=== PATIENT | male | born 1955 | race Caucasian/White ===

== ENCOUNTER 2023-12-29 15:40 | Inpatient (IN) | payer MEDICARE, OTHER, SELFPAY ==
[2023-12-29] VITALS (7 sets, daily range): BP systolic 134–155; BP diastolic 69–100; BMI 28.1; BMI 27.6
[2023-12-29] MEDS: DECADRON 10 MG IV (12:35)
[2023-12-29] MEDS: VENTOLIN NEBULES 10 MG INH (12:35)
[2023-12-29 12:41] LABS: % Basophils 0.5 % (0-2); % Eosinophils 3.5 % (0-6); % Immature Granulocytes 0.2 % (0-0.5); % Lymphocytes 17.8 % (20.5-51.1); % Monocytes 9.6 % (1.7-9.3); % Neutrophils 68.4 % (42.2-75.2); Absolute Basophils 0.1 10^3/uL (0-0.2); Absolute Eosinophils 0.3 10^3/uL (0-0.7); Absolute Lymphocytes 1.6 10^3/uL (1.2-3.4); Absolute Monocytes 0.9 10^3/uL (0.1-0.6); Absolute Neutrophils 6.3 10^3/uL (1.4-6.5); Hematocrit 39.7 % (39.0-52.0); Mean Corp Hgb Conc. 35.3 g/dL (33.0-37.0); Mean Corpuscular Hgb 31.4 pg (27.0-31.0); Mean Platelet Volume 9.3 fL (7.4-10.4); Nucleated Red Blood Cells % 0 % (-); Platelet Count 231 10^3/uL (130-400); Red Blood Cell Count 4.46 10^6/uL (4.70-6.10); Red Cell Dist. Width 13.3 % (11.5-14.5); White Blood Cell Count 9.2 10^3/uL (4.8-10.8)
[2023-12-29 12:55] LABS: ALT (SGPT) 30 U/L (0-50); AST (SGOT) 36 U/L (17-59); Albumin 4.2 g/dl (3.5-5.0); Alkaline Phosphatase 100 U/L (38-126); Blood Urea Nitrogen 25 mg/dl (9-20); Carbon Dioxide 24 mmol/L (22-30); Chloride 106 mmol/L (98-107); Estimated Creatinine Clearance 108 ml/min; Glucose 252 mg/dl (70-99); Lactic Acid 1.5 mmol/L (0.7-2.0); Potassium 4.1 mmol/L (3.5-5.1); Sodium 135 mmol/L (135-145); Total Bilirubin 0.4 mg/dl (0.2-1.3); Total Protein 6.5 g/dl (6.3-8.2); eGFR > 60.00
[2023-12-29 12:56] LABS: COVID-19 Antigen Negative (Negative)
--- NOTE | 2023-12-29 14:18 | ED.GENMED ---
History of Present Illness
<Katty Jacob PA-C - Last Filed: 12/29/23 18:01>
General
Chief Complaint: Breathing Problem
Source: patient
Exam Limitations: none
Time Seen by Provider: 12/29/23 12:15
Nursing documentation reviewed up to this point in time: agreed with
Travel History
Have you had any contact with someone who has COVID-19?: No
Do you have any symptoms of coronavirus? Fever > 100 degrees, chills, cough, shortness of breath, sore throat, loss of taste or smell, muscle aches, or headache?: No
History of Present Illness
History of Present Illness:
68-year-old male with a history of asthma since age 48, never smoker, no history of intubations or BiPAP use in the past presents for wheezing that began last night. Patient has had a mostly dry cough and some chills. His nebulizers were increased
to every 3 hours overnight and he would just get to sleep before being woken up again by feeling short of breath. This morning he also noticed a pain in behind his right shoulder. It is not pleuritic. He has no history of DVT or PE. He has had
similar episodes of wheezing related to his asthma, the most recent was in October where he required steroid taper. Patient says this feels like an episode that may require hospitalization
Past History
<Katty Jacob PA-C - Last Filed: 12/29/23 18:01>
Past History
ED Past Medical History: Asthma, COPD, GERD and Other (Sinusitis)
ED Past Surgical History: Other (Sinus surgery)
Patient has exhibited threatening behavior?: No
PSI?: No
Social History
Tobacco: 2nd hand smoke exposure (As a child)
Alcohol: None
Drug: None
Personal:
Living: with family
Employment: Employed
Family History
Family History: Other (Noncontributory)
Review of Systems
<Katty Jacob PA-C - Last Filed: 12/29/23 18:01>
Review of Systems
Allergies reviewed?: Yes
All Other Systems: Not applicable
Phy Exam
<ZENAIDA Patino Last Filed: 12/29/23 18:01>
Physical Exam
Physical Exam:
GENERAL: Alert , mild to moderate tachypnea, accessory muscle use in his neck
EYE: pupils equal and reactive
NECK: Supple
ENT: b/l TM s clear, no pharynx erythema
CARDIAC: Regular rate and rhythm, no edema
LUNGS: Diminished throughout, inspiratory and expiratory wheezing, poor air movement, tachypneic
ABDOMEN: Soft, without focal tenderness, no r/g, no cvat, normal bowel sounds
NEUROLOGICAL: Alert and oriented, no focal neuro deficits
SKIN: Warm and dry, skin intact.
MUSCULOSKELETAL: No edema, well perfused.
PSYCH: Normal and appropriate interaction.
Scores
<ZENAIDA Patino Last Filed: 12/29/23 18:01>
Heart Failure Risk
Heart Failure Risk Score: Not Applicable
Course
<ZENAIDA Patino Last Filed: 12/29/23 18:01>
Orders/Labs/Results
Orders:
Orders
12/29/23 12:15
EKG [Electrocardiogram (*1)] Urgent
Reason for Study: Shortness of Breath
EKG- Treatment ONCE
12/29/23 12:28
Albuterol Sulfate [Ventolin Nebules] 10 mg INH R NOW STA
Dexamethasone Sod Phosphate [Decadron] 10 mg IV NOW STA
12/29/23 12:30
CR Chest - 2 Views Urgent
Comment:
Reason For Exam: fever, asthma, wheezing, cough
12/29/23 12:32
COVID-19 Antigen Urgent
Source: Nasal Swab
Complete Blood Count/With Diff Urgent
Comprehensive Metabolic Panel Urgent
Lactic Acid Urgent
Influenza A+B Rapid Molecular Urgent
STONEY Source: Nasal Swab
Specimen Description:
12/29/23 14:11
Magnesium Sulfate 1 grams 0.9% Sodium Chloride 100 ml [Nss] 100 ml IV NOW
12/29/23 14:14
Ketorolac [Toradol] 15 mg IV NOW STA
12/29/23 14:19
D-Dimer Urgent
12/29/23 14:42
Ipratropium/Albuterol Sulfate [Duoneb] 3 ml INH R NOW STA
12/29/23 14:43
Guaifenesin/Codeine Solution [Robitussin AC] 10 ml PO NOW STA
12/29/23 Dinner
1800 calorie (15 carb) Diabetic
At Your Request: Full Participation
12/29/23 15:05
Admit/Transfer Patient As Directed
Co-Sign Provider:
Level of Care: Inpatient admission
Assign to:: Medical/Surgical
Physician / Group: Hospitalist
Diagnosis: Asthma exacerbation
Reason for Hospitalization: Respiratory distress
Expected length of stay greater than two midnights?: Yes
ELOS- Estimated Length of Stay in days: 2
I certify the patient meets the requirements for IP care: Yes
12/29/23 15:07
Magnesium Sulfate 1 grams 0.9% Sodium Chloride 100 ml [Nss] 100 ml IV NOW
12/29/23 15:11
Code Status As Directed
Resuscitation Status: Full Code
12/29/23 15:29
Bedside Glucose Monitoring As Directed
Frequency: AC&HS
12/29/23 16:30
Insulin Aspart Corrective Low [Novolog Flexpen-Low Resistance] See Protocol SC AC
12/29/23 16:56
Acetaminophen [Tylenol] 650 mg PO Q4HPRN PRN
Albuterol Nebs [Ventolin Nebules] 2.5 mg INH R Q3HPRN PRN
Guaifenesin Solution [Robitussin] 200 mg PO Q4HPRN PRN
Peak Flow Rate [RESP] DAILY
Quantity: 1
12/29/23 16:56
Activity As Directed
Activity Level: With Assistance
Intake/ Output As Directed
Frequency: Per unit guidelines
Vital Signs As Directed
Frequency: Per unit guidelines
O2 Therapy [RESP] Routine
Nasal Cannula Liter Flow: 2 LPM
Titrate/Wean O2 to maintain O2 sat greater than (%): 93
Special Instructions: adjust, if necessary, to avoid hyperoxia in CO2 retainers.
Use High Flow O2 if necessary
DX Deep Vein Thrombosis Video Routine
12/29/23 17:30
METFORMIN HCl [Glucophage] 1,000 mg PO BID AT 0800,1700
12/29/23 18:00
Enoxaparin Sodium [Lovenox] 40 mg SC QPM
Ipratropium Nebs [Atrovent Nebules] 0.5 mg INH R Q1
12/29/23 20:00
Budesonide/Formoterol 160/4.5 [Symbicort 160/4.5 Mcg Inhaler] 2 puff INH R BID
Famotidine [Pepcid] 20 mg PO BID
Guaifenesin [Mucinex] 600 mg PO Q12
MethylPREDNISolone PF [Solu-Medrol Pf] 40 mg IV Q12
12/30/23 06:00
Basic Metabolic Panel IN AM
12/30/23 07:00
Levothyroxine [Synthroid] 50 mcg PO DAILY@0700
12/30/23 08:00
Montelukast Sodium [Singulair] 10 mg PO DAILY
Multivitamin [Theragran] 1 tablet PO DAILY
Paroxetine [Paxil] 10 mg PO DAILY
Tiotropium Poplar 2.5 Mcg [Spiriva Respimat 2.5 Mcg] 2 puff INH R DAILY
Abnormal Lab Results
12/29/23
12:32
RBC 4.46 L 10^6/uL
(4.70-6.10)
MCH 31.4 H pg
(27.0-31.0)
Absolute Monos (auto) 0.9 H 10^3/uL
(0.1-0.6)
Lymphocytes % 17.8 L %
(20.5-51.1)
Monocytes % 9.6 H %
(1.7-9.3)
BUN 25 H mg/dl
(9-20)
Glucose 252 H mg/dl
(70-99)
12/29/23 12:32
12/29/23 12:32
Vital Signs
Initial and Last Documented VS:
Initial Vital Signs
Temp Pulse Resp BP Pulse Ox
98.6 F 92 22 146/100 96
12/29/23 12:13 12/29/23 12:13 12/29/23 12:13 12/29/23 12:13 12/29/23 12:13
Last Documented Vital Signs
Temp Pulse Resp BP Pulse Ox
97.5 F 83 20 153/94 94
12/29/23 17:10 12/29/23 17:10 12/29/23 17:10 12/29/23 17:10 12/29/23 17:10
<Alvaro Abraham MD - Last Filed: 12/29/23 14:42>
Orders/Labs/Results
Orders:
Orders
12/29/23 12:15
EKG [Electrocardiogram (*1)] Urgent
Reason for Study: Shortness of Breath
EKG- Treatment ONCE
12/29/23 12:28
Albuterol Sulfate [Ventolin Nebules] 10 mg INH R NOW STA
Dexamethasone Sod Phosphate [Decadron] 10 mg IV NOW STA
12/29/23 12:30
CR Chest - 2 Views Urgent
Comment:
Reason For Exam: fever, asthma, wheezing, cough
12/29/23 12:32
COVID-19 Antigen Urgent
Source: Nasal Swab
Complete Blood Count/With Diff Urgent
Comprehensive Metabolic Panel Urgent
Lactic Acid Urgent
Influenza A+B Rapid Molecular Urgent
STONEY Source: Nasal Swab
Specimen Description:
12/29/23 14:11
Magnesium Sulfate 1 grams 0.9% Sodium Chloride 100 ml [Nss] 100 ml IV NOW
12/29/23 14:14
Ketorolac [Toradol] 15 mg IV NOW STA
12/29/23 14:19
D-Dimer Urgent
12/29/23 14:42
Ipratropium/Albuterol Sulfate [Duoneb] 3 ml INH R NOW STA
12/29/23 14:43
Guaifenesin/Codeine Solution [Robitussin AC] 10 ml PO NOW STA
12/29/23 Dinner
1800 calorie (15 carb) Diabetic
At Your Request: Full Participation
12/29/23 15:05
Admit/Transfer Patient As Directed
Co-Sign Provider:
Level of Care: Inpatient admission
Assign to:: Medical/Surgical
Physician / Group: Hospitalist
Diagnosis: Asthma exacerbation
Reason for Hospitalization: Respiratory distress
Expected length of stay greater than two midnights?: Yes
ELOS- Estimated Length of Stay in days: 2
I certify the patient meets the requirements for IP care: Yes
12/29/23 15:07
Magnesium Sulfate 1 grams 0.9% Sodium Chloride 100 ml [Nss] 100 ml IV NOW
12/29/23 15:11
Code Status As Directed
Resuscitation Status: Full Code
12/29/23 15:29
Bedside Glucose Monitoring As Directed
Frequency: AC&HS
12/29/23 16:30
Insulin Aspart Corrective Low [Novolog Flexpen-Low Resistance] See Protocol SC AC
12/29/23 16:56
Acetaminophen [Tylenol] 650 mg PO Q4HPRN PRN
Albuterol Nebs [Ventolin Nebules] 2.5 mg INH R Q3HPRN PRN
Guaifenesin Solution [Robitussin] 200 mg PO Q4HPRN PRN
Peak Flow Rate [RESP] DAILY
Quantity: 1
12/29/23 16:56
Activity As Directed
Activity Level: With Assistance
Intake/ Output As Directed
Frequency: Per unit guidelines
Vital Signs As Directed
Frequency: Per unit guidelines
O2 Therapy [RESP] Routine
Nasal Cannula Liter Flow: 2 LPM
Titrate/Wean O2 to maintain O2 sat greater than (%): 93
Special Instructions: adjust, if necessary, to avoid hyperoxia in CO2 retainers.
Use High Flow O2 if necessary
DX Deep Vein Thrombosis Video Routine
12/29/23 17:30
METFORMIN HCl [Glucophage] 1,000 mg PO BID AT 0800,1700
12/29/23 18:00
Enoxaparin Sodium [Lovenox] 40 mg SC QPM
Ipratropium Nebs [Atrovent Nebules] 0.5 mg INH R Q1
12/29/23 20:00
Budesonide/Formoterol 160/4.5 [Symbicort 160/4.5 Mcg Inhaler] 2 puff INH R BID
Famotidine [Pepcid] 20 mg PO BID
Guaifenesin [Mucinex] 600 mg PO Q12
MethylPREDNISolone PF [Solu-Medrol Pf] 40 mg IV Q12
12/30/23 06:00
Basic Metabolic Panel IN AM
12/30/23 07:00
Levothyroxine [Synthroid] 50 mcg PO DAILY@0700
12/30/23 08:00
Montelukast Sodium [Singulair] 10 mg PO DAILY
Multivitamin [Theragran] 1 tablet PO DAILY
Paroxetine [Paxil] 10 mg PO DAILY
Tiotropium Poplar 2.5 Mcg [Spiriva Respimat 2.5 Mcg] 2 puff INH R DAILY
Abnormal Lab Results
12/29/23
12:32
RBC 4.46 L 10^6/uL
(4.70-6.10)
MCH 31.4 H pg
(27.0-31.0)
Absolute Monos (auto) 0.9 H 10^3/uL
(0.1-0.6)
Lymphocytes % 17.8 L %
(20.5-51.1)
Monocytes % 9.6 H %
(1.7-9.3)
BUN 25 H mg/dl
(9-20)
Glucose 252 H mg/dl
(70-99)
12/29/23 12:32
12/29/23 12:32
Vital Signs
Initial and Last Documented VS:
Initial Vital Signs
Temp Pulse Resp BP Pulse Ox
98.6 F 92 22 146/100 96
12/29/23 12:13 12/29/23 12:13 12/29/23 12:13 12/29/23 12:13 12/29/23 12:13
Last Documented Vital Signs
Temp Pulse Resp BP Pulse Ox
97.5 F 83 20 153/94 94
12/29/23 17:10 12/29/23 17:10 12/29/23 17:10 12/29/23 17:10 12/29/23 17:10
<Katty Jacob PA-C - Last Filed: 12/29/23 18:01>
MDM/Problems Addressed
Differential Diagnosis Includes:
PE, asthma, pneumonia, pneumothorax
MDM/Problems Addressed:
68 y/o M
here with wheezing, sob, uri sxs and fever, worse overnight
no relief with q3 hr nebs;
tachypneic, wheezing, diminished
not hypoxic
ekg nonischemic
no chest pain
cxr no obvious PTX, reviewed with ED attending
after1 hour long continuous alb neb, pt is wheezing less but still wheezing and mildly tachypneic
not improved well enough to d/c home
will admit
pt c/o shoulder pain which seems MSK but ed attending saw pt and asked for d dimer.
<Katty Jacob PA-C - Last Filed: 12/29/23 18:01>
*Critical Care Note
Total Time (30-74mins, 75-104mins- exclusive of procedures): Not Applicable
ED Attending Note
<Katty Jacob PA-C - Last Filed: 12/29/23 18:01>
-
Portions of this chart may have been created with voice recognition software.� Occasional wrong word or��sound alike� substitutions may have occurred due to the inherent limitations of voice recognition software.
<Alvaro Abraham MD - Last Filed: 12/29/23 14:42>
ED Attending Note
Patient seen and examined by attending physician: Yes
ED Attending Note:
Patient with history of COPD, presents to ED secondary to recurrent shortness of breath with nonproductive cough over the past 2 days, along with right upper back pain. Back pain worse with certain movements and with coughing. Denies fever or
chills. Denies chest pain. Denies nausea or vomiting. Denies diarrhea. Denies recent change in medications or diet. Of note, patient was admitted to the hospital 1 month ago for similar symptoms, when he was treated for acute COPD exacerbation.
Patient states that his symptoms had resolved completely, until 2 days ago.
Physical Exam
General: mild respiratory distress, not acutely ill. afebrile.
Head: nc/at. eomi
Neck: supple. no meningeal signs.
Heart: s1/s2 regular rate and rhythm, no murmur. equal radial pulses.
Lungs: mild respiratory distress. diffuse expiratory wheezing noted bilaterally, with use of intercostal muscle.
Abdomen: normal bowel sounds. not tender.
Neuro: alert and oriented. no focal neurological deficits
Skin: no rash
Psychiatric: well kept. interactive and cooperative
Extremities: no edema. no calf tenderness.
Patient reports improvement in symptoms after hour-long continuous nebulizer treatment. However, remains tachypneic with persistent wheezing. Chest x-ray without any acute findings. History and exam consistent with likely recurrent COPD
exacerbation versus bronchitis. Patient will be admitted for further evaluation and treatment. Upper back pain likely musculoskeletal from harsh coughing spells. However, will check D-dimer, especially in light of recurrent episode within 1
month..
Discharge Plan
Departure
Patient Disposition: Admit
Date of Disposition: 12/29/23
Time of Disposition: 14:12
Admit to: Med/Surg
Presentation/result/management discussed w/ accepting MD/DO: Hospitalist
Condition: Fair
Covid-19: Not Applicable
Discharge Problem:
Asthma exacerbation, URI (upper respiratory infection)
Interventions
Interventions:
*Risk Screen - Suicide Last Done: 12/29/23 17:15
*General Assessment Last Done: 12/29/23 12:24
*Neglect/Abuse Screening Last Done: 12/29/23 12:24
ED- Fall Risk Assessment Last Done: 12/29/23 12:24
*ED COVID-19 Vaccine History Last Done: 12/29/23 12:24
*Nursing Disposition Last Done: 12/29/23 16:48
ED- Cardiac Assessment Last Done: 12/29/23 12:24
ED- Pulmonary Assessment Last Done: 12/29/23 12:24
Discharge Date and Time
Discharge Date/Time: 12/29/23 16:48
[2023-12-29] MEDS: TORADOL 15 MG IV (14:20)
[2023-12-29 14:42] LABS: D-Dimer 0.31 ug/mlFEU (0.00-0.50)
[2023-12-29] MEDS: MAGNESIUM SULFATE 102 GRAMS IV (15:26)
[2023-12-29] MEDS: DUONEB 3 ML INH (15:28)
[2023-12-29] MEDS: ROBITUSSIN AC 10 ML PO (15:28)
--- NOTE | 2023-12-29 15:30 | HPS.HSE ---
Family Physician
-
Family Physician: Arlyn Sheriff PA-C
Chief Complaint
-
Wheezing and shortness of breath
History of Present Illness
This is a 68-year-old male with a past medical history of insulin-dependent diabetes, asthma, GERD presenting to the emergency department with acute episode of wheezing and nonproductive cough and shortness of breath.
Patient reported that since 1 week ago he has had increased nasal congestion and stuffiness with associated postnasal drip. He denied having any fever chills. He denies a productive cough. He denies any sick contacts. Yesterday he started
having more dyspnea and shortness of breath. He used his rescue inhaler 3 times yesterday without any significant improvement. He was even unable to sleep due to the persistent wheezing and inability to catch his breath. He reports some chest
pain with deep dry cough. Patient reported compliance with his maintenance medications. He denies any new exposures, new medications, recent travels or sick contacts. He denies any lower extremity swelling or calf tenderness.
On arrival in the ED the patient was afebrile and hemodynamically stable was tachypneic maintain oxygen saturation of 93 to 97% on room air. X-ray shows no acute infiltrates bilateral hyperinflation previously seen. ECG with normal sinus rhythm
rate of 70 and a left anterior fascicular block unchanged from prior, no acute Q waves or T wave abnormalities. His COVID test was negative. Influenza test was negative. D-dimer was negative. Chemistries were all within limits except for
hyperglycemia to 52. CBC was unremarkable.
Medical History
Past Medical History
Past Medical History: Reports Asthma, GERD and IDDM
Past Surgical History: Reports None
Social History
Tobacco: Non-smoker
Alcohol: None
Drug: None
Personal:
Living: With Family
Employment: Employed
Family History
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
Allergies / Home Medications
Allergies reflects when Allergies were last updated in [facility].
Home Medications with original date entered in [facility]
Allergy/Medication List:
Allergies
Allergy/AdvReac Type Severity Reaction Status Date / Time
grass pollen-perennial rye, Allergy Shortness Verified 12/29/23 12:13
standar of Breath
tree and shrub pollen Allergy PINE Verified 12/29/23 12:13
TREES-SHORTNESS
OF BREATH
Home Medications
paroxetine HCl 10 mg tablet 10 mg PO DAILY Mental Health 01/27/13
multivitamin with folic acid 400 mcg tablet (Tab-A-Grayson) 1 tab PO DAILY Supplement 11/10/18
montelukast 10 mg tablet 10 mg PO DAILY Lung/breathing issues 09/07/19
famotidine 20 mg tablet 20 mg PO BID Gastrointestinal issue 01/06/21
acetaminophen 500 mg tablet (Tylenol Extra Strength) 500 mg PO BIDPRN PRN mild pain 11/08/23
albuterol sulfate 90 mcg/actuation aerosol inhaler 2 puff inhalation R Q4HPRN PRN sob 11/08/23
budesonide 0.5 mg/2 mL suspension for nebulization 0.5 mg inhalation R BIDPRN PRN sob 11/08/23
budesonide-formoterol HFA 160 mcg-4.5 mcg/actuation aerosol inhaler (Symbicort) 2 puff inhalation R BID 11/08/23
fluticasone propionate 50 mcg/actuation nasal spray,suspension 2 spray intranasal DAILY 11/08/23
insulin glargine 100 unit/mL (3 mL) subcutaneous pen (Lantus Solostar U-100 Insulin) 8 unit SC BID 11/08/23
levothyroxine 50 mcg tablet 50 mcg PO DAILY 11/08/23
metformin 1,000 mg tablet 1,000 mg PO BID 11/08/23
omega 6-kca-rqi-fish oil 1,000 mg (120 mg-180 mg) capsule (Fish Oil) 2 cap PO DAILY 11/08/23
umeclidinium 62.5 mcg/actuation blister powder for inhalation (Incruse Ellipta) 1 inh inhalation R DAILY 11/08/23
Review of Systems
-
History Source: Patient
Constitutional: Reports No Symptoms
EENT: Reports Runny Nose
Respiratory: Reports Cough and Trouble Breathing
Cardiac: Reports No Symptoms
Abdomen/GI: Reports No Symptoms
: Reports No Symptoms
Musculoskeletal: Reports No Symptoms
Skin: Reports No Symptoms
Neurological: Reports No Symptoms
Endocrine: Reports No Symptoms
Hematologic/Lymphatic: Reports No Symptoms
Psych: Reports No Symptoms
Physical Exam
Vital Signs
Vital Signs
Temp Pulse Resp BP Pulse Ox
98.6 F 72 18 155/73 95
12/29/23 12:13 12/29/23 15:00 12/29/23 15:00 12/29/23 14:00 12/29/23 15:00
Physical Exam
General: Well Developed, Well Nourished and Respiratory Distress
HEENT: NormoCephalic, Anicteric, Moist mucous membranes, Atraumatic, PERRLA, [employer] [place] Conjunctivae and Neck Nontender
Respiratory: Clear, Wheezes and Decreased Breath Sounds
Cardiac: S1/S2 and Regular Rhythm
Breast: Deferred by me
GI: Soft, Non Tender and Non Distended
Rectal: Deferred by Provider
Genito-urinary: Deferred by me
Musculoskeletal: No Clubbing, No Cyanosis and No Edema
Skin: Warm
Neuro: AO x 3
Hematologic/Lymphatic: No Lymphadenopathy
Psych: Calm
Laboratory Results
-
12/29/23 12:32
12/29/23 12:32
Laboratory Results
Lactic Acid 1.5 mmol/L (0.7-2.0) 12/29/23 12:32
Total Bilirubin 0.4 mg/dl (0.2-1.3) 12/29/23 12:32
AST 36 U/L (17-59) 12/29/23 12:32
ALT 30 U/L (0-50) 12/29/23 12:32
Alkaline Phosphatase 100 U/L (38-126) 12/29/23 12:32
Data Reviewed
-
Diagnostic Radiology: Image Personally Visualized and interpreted and Report Reviewed by me
Medical Tests (Nuc Med, Echo, EKG etc): Image Personally Visualized and interpreted
Lab Data: Labs Reviewed by me
Old Records: Reviewed
Impression/Plan
-
IMPRESSION:
68-year-old with history of asthma presents to the emergency department with nonproductive cough wheezing shortness of breath without hypoxia and cough associated chest pain. Moderate respiratory distress. X-ray without infiltrates. Negative
COVID, negative influenza, negative D-dimer. Labs unremarkable. ECG with normal sinus rhythm without any acute ST or T wave changes. Patient with obvious asthma exacerbation without evidence of significant infection or bronchitis. Likely allergy
related exacerbation giving history of nasal congestion and postnasal drip. Currently air movement is acceptable with moderate wheezing throughout the lung meneses. No use of accessory muscles. Speaking in clear and full sentences. Status post
dexamethasone, albuterol, mag sulfate in ED.
PLAN:
Asthma Exacerbation - Moderate asthma exacerbation without signs of infection, PE or volume overload. WOB is moderate. No hypoxia. Speaking in full sentences. No indication for BIPAP or intubation.
- admit to med/surg
- in addition to ED treatments, will add ipratoprium neb 500mcg q1 hr x 3
- albuterol q 3hrs prn wheezing
- solumedrol 40mg iv q 12
- continue montelukast and famotidine
- continue symbicort and incruse ellipta
- guaifenesin bid and q 6 prn
- supplemental oxygen if needed
- pain control with tylenol prn
DM II - Insulin dependent diabetes on lantus at home
- lantus 8 bid
- sliding scale aspart (low dose)
- metformin 1000 bid for now
GERD-
- famotidine bid as above
Hypothyroid
- continue levothyroxine 50 mcg
DVT PPX - lovenox sq
Code status - full code
--- NOTE | 2023-12-29 17:10 | PTCARENOTE ---
Pt arrived to rm 407-2 at this time from the ED. Pt AAOx3, HAMILTON, coarse throughout on lung assessment, no complaints of pain. Med/surg. See shift assessment for further detail. Oriented pt to plan of care, reporting concerns, call foley, etc- pt
verbalized understanding. Call foley within reach.
[2023-12-29 17:47] LABS: Glucose - Point of Care 209 mg/dl (70-99)
[2023-12-29] MEDS: ATROVENT NEBULES INH ×2 (18:16→19:38)
[2023-12-29] MEDS: GLUCOPHAGE 1000 MG PO (18:34)
[2023-12-29] MEDS: NOVOLOG FLEXPEN-LOW RESISTANCE 2 UNITS SC (18:34)
[2023-12-29] MEDS: SYMBICORT 160/4.5 MCG INHALER 2 PUFF INH (19:32)
[2023-12-29] MEDS: ATROVENT NEBULES 0.5 MG INH (19:34)
[2023-12-29] MEDS: PEPCID 20 MG PO (20:48)
[2023-12-29] MEDS: MUCINEX 600 MG PO (20:48)
[2023-12-29] MEDS: SOLU-MEDROL PF 40 MG IV (20:50)
[2023-12-29 20:58] LABS: Glucose - Point of Care 227 mg/dl (70-99)
[2023-12-29] MEDS: LANTUS 0.0800000000000000017 UNITS SC (21:01)
[2023-12-30] MEDS: SYNTHROID 50 MCG PO (05:38)
[2023-12-30 07:01] LABS: Glucose - Point of Care 128 mg/dl (70-99)
[2023-12-30 07:25] VITALS: BP 142/82
[2023-12-30] MEDS: SPIRIVA RESPIMAT 2.5 MCG 2 PUFF INH (08:04)
[2023-12-30] MEDS: SYMBICORT 160/4.5 MCG INHALER 2 PUFF INH ×2 (08:04→19:16)
[2023-12-30] MEDS: VENTOLIN NEBULES 2.5 MG INH ×2 (08:19→17:07)
--- NOTE | 2023-12-30 08:37 | W.PN.HOSP.TC ---
Today's Communication/Plan
-
Change steroids to prednisone
Continue inhalers
Acapella
Assessment / Plan
Assessment / Plan
Gen-AAOx3, NAD
HEENT-NC, AT, anicteric, clear oral mm
Neck-supple
CV-reg, no M, +S1/S2
Lungs-mild bilateral expiratory wheezing
Abd-soft, NT, ND
Ext-no edema
Musculoskeletal-no cyanosis, clubbing
Skin-warm and dry
Neuro-grossly non-focal
Psych-calm, cooperative
Acute asthma exacerbation -slowly improving. Chest x-ray clear. Not hypoxic, not on supplemental oxygen. COVID and influenza negative. Baseline mild persistent asthma. Suspect trigger for asthma exacerbation due to seasonal allergies given the
change in weather. Spoke with patient about starting nasal steroids in November to get ahead of allergy season. Will add Claritin while in the hospital. We do not have nasal steroids on formulary.
Will lower dose of steroids and change to prednisone. Continue inhalers. He is on Symbicort and Incruse Ellipta at home daily.
Close outpatient follow-up with his asthma specialist, Dr. Perkins.
DM2 with hyperglycemia -hyperglycemia triggered by steroid use. Glucose 227 last night, 128 this morning. He is on Lantus 8 units twice daily along with metformin 1000 mg twice daily at home.
GERD
Hypothyroidism -continue levothyroxine.
Full code
Dispo -potential discharge tomorrow if he continues to improve.
Anticipated Discharge: Within 24 hours
Subjective/Interval History
-
Date of Service: December 30, 2023
Patient seen and examined. States he is starting to feel better. Getting a nebulizer treatment currently. No complaints.
Objective Data
-
Labs:
Laboratory Results
12/30/23
07:06
Sodium Pending
Potassium Pending
Chloride Pending
Carbon Dioxide Pending
BUN Pending
Creatinine Pending
Glucose Pending
Calcium Pending
Vital Signs:
Vital Signs
Temp Pulse Resp BP Pulse Ox
97.4 F 65 18 142/82 95
12/30/23 07:25 12/30/23 08:17 12/30/23 08:17 12/30/23 07:25 12/30/23 08:17
I&O
12/29/23 12/30/23 12/31/23
06:59 06:59 06:59
Intake Total 240 / 240
Balance 240 / 240
Review of Systems
-
History Source: Patient
All other systems: Reviewed and negative
[2023-12-30 08:40] LABS: Blood Urea Nitrogen 27 mg/dl (9-20); Calcium 9.4 mg/dl (8.4-10.2); Carbon Dioxide 26 mmol/L (22-30); Chloride 102 mmol/L (98-107); Estimated Creatinine Clearance 108 ml/min; Glucose 128 mg/dl (70-99); Potassium 4.8 mmol/L (3.5-5.1); Sodium 135 mmol/L (135-145); eGFR > 60.00
[2023-12-30] MEDS: NOVOLOG FLEXPEN-LOW RESISTANCE SC ×2 (09:01→12:02)
[2023-12-30] MEDS: SOLU-MEDROL PF IV (09:03)
[2023-12-30] MEDS: MUCINEX 600 MG PO ×2 (09:04→21:22)
[2023-12-30] MEDS: LANTUS 0.0800000000000000017 UNITS SC ×2 (09:04→21:23)
[2023-12-30] MEDS: FLUSH (NSS) 1 FLUSH IV (09:05)
[2023-12-30] MEDS: GLUCOPHAGE 1000 MG PO ×2 (09:05→17:00)
[2023-12-30] MEDS: CLARITIN 10 MG PO (09:05)
[2023-12-30] MEDS: DELTASONE 50 MG PO (09:05)
[2023-12-30] MEDS: PEPCID 20 MG PO ×2 (09:05→21:22)
[2023-12-30] MEDS: THERAGRAN 1 TABLET PO (09:05)
[2023-12-30] MEDS: SINGULAIR 10 MG PO (09:05)
[2023-12-30] MEDS: PAXIL 10 MG PO (09:05)
[2023-12-30 11:38] LABS: Glucose - Point of Care 127 mg/dl (70-99)
[2023-12-30 15:16] VITALS: BP 150/85
--- NOTE | 2023-12-30 16:02 | PTCARENOTE ---
Pt AO x3, SALINAS well, OOB in room/to BR; marybel well. VSS. On room air- pulse ox 94%, no c/o SOB. Abd large, soft, marybel PO well. Voiding in BR without difficulty. Resting in bed at present, no c/o. Will continue to monitor.
[2023-12-30 16:44] LABS: Glucose - Point of Care 153 mg/dl (70-99)
[2023-12-30] MEDS: ROBITUSSIN 200 MG PO (17:00)
--- NOTE | 2023-12-30 17:26 | CM ---
CM following re: d/c planning
Chart reviewed
CM met with the patient at bedside; IA completed
Pt states he and his spouse reside in a 2SH with 2STE
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
Pt has no previous SNF/VN hx, and the only DME owned is a nebulizer
Pt does have prescription coverage and rx's are filled at [facility] on [facility]
Pt PCP-Arlyn Sheriff PA-C
No needs are anticipated once stable for d/c
CM will continue to remain available and assist with any needs at d/c as applicable
PLAN; d/c home no needs anticipated
[2023-12-30] MEDS: NOVOLOG FLEXPEN-LOW RESISTANCE 1 UNITS SC (17:58)
[2023-12-30 20:22] LABS: Hepatitis C Antibody Negative (Negative)
[2023-12-30 21:15] LABS: Glucose - Point of Care 165 mg/dl (70-99)
[2023-12-30 23:11] VITALS: BP 114/70
[2023-12-31] MEDS: SYNTHROID 50 MCG PO (06:21)
[2023-12-31 07:00] VITALS: BP 159/98
[2023-12-31] MEDS: SPIRIVA RESPIMAT 2.5 MCG 2 PUFF INH (07:40)
[2023-12-31] MEDS: SYMBICORT 160/4.5 MCG INHALER 2 PUFF INH (07:40)
[2023-12-31] MEDS: VENTOLIN NEBULES 2.5 MG INH (07:41)
[2023-12-31 08:07] LABS: Glucose - Point of Care 89 mg/dl (70-99)
[2023-12-31] MEDS: NOVOLOG FLEXPEN-LOW RESISTANCE SC (08:39)
[2023-12-31] MEDS: LANTUS 0.0800000000000000017 UNITS SC (08:39)
[2023-12-31] MEDS: THERAGRAN 1 TABLET PO (08:40)
[2023-12-31] MEDS: PAXIL 10 MG PO (08:40)
[2023-12-31] MEDS: GLUCOPHAGE 1000 MG PO (08:40)
[2023-12-31] MEDS: SINGULAIR 10 MG PO (08:40)
[2023-12-31] MEDS: PEPCID 20 MG PO (08:40)
[2023-12-31] MEDS: DELTASONE 50 MG PO (08:40)
[2023-12-31] MEDS: CLARITIN 10 MG PO (08:40)
[2023-12-31] MEDS: MUCINEX 600 MG PO (08:40)
--- NOTE | 2023-12-31 08:42 | W.PN.HOSP.TC ---
Today's Communication/Plan
-
Ambulatory pulse ox on room air
Discharge
Assessment / Plan
Assessment / Plan
Gen-AAOx3, NAD
HEENT-NC, AT, anicteric, clear oral mm
Neck-supple
CV-reg, no M, +S1/S2
Lungs-bilateral wheezing much improved compared to yesterday
Abd-soft, NT, ND
Ext-no edema
Musculoskeletal-no cyanosis, clubbing
Skin-warm and dry
Neuro-grossly non-focal
Psych-calm, cooperative
Acute asthma exacerbation -slowly improving. Chest x-ray clear. Not hypoxic, not on supplemental oxygen. COVID and influenza negative. Baseline mild persistent asthma. Suspect trigger for asthma exacerbation due to seasonal allergies given the
change in weather. Spoke with patient about starting nasal steroids in November to get ahead of allergy season. Will add Claritin while in the hospital. We do not have nasal steroids on formulary.
Will discharge on a prednisone taper. Continue inhalers. He is on Symbicort and Incruse Ellipta at home daily.
Close outpatient follow-up with his asthma specialist, Dr. Perkins. Hyde text sent to Dr. Perkins with an update.
DM2 with hyperglycemia -hyperglycemia triggered by steroid use. Glucose 165 last night, 89 this morning. He is on Lantus 8 units twice daily along with metformin 1000 mg twice daily at home.
GERD
Hypothyroidism -continue levothyroxine.
Full code
Dispo -medically stable for discharge home today. Outpatient follow-up with PCP and pulmonary. Discussed with nursing. Check ambulatory pulse ox on room air prior to discharge.
35 minutes spent in discharge process.
Anticipated Discharge: Today
Subjective/Interval History
-
Date of Service: December 31, 2023
Patient seen and examined. Feeling much better. Denies shortness of breath or wheezing.
Objective Data
-
Vital Signs:
Vital Signs
Temp Pulse Resp BP Pulse Ox
98.1 F 76 18 159/98 95
12/31/23 07:00 12/31/23 07:42 12/31/23 07:42 12/31/23 07:00 12/31/23 07:42
I&O
12/30/23 12/31/23 01/01/24
06:59 06:59 06:59
Intake Total 240 / 240 1140 / 1140
Balance 240 / 240 1140 / 1140
Review of Systems
-
History Source: Patient
All other systems: Reviewed and negative
--- NOTE | 2023-12-31 08:48 | W.DS.TRANS ---
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
-
Discharge Instructions:
Discharge Diagnosis/Procedures Asthma exacerbation
Diet Diabetic, Carb Controlled
Activity As tolerated
Driving Restrictions As prior to admission
Bathing Restrictions None
Instructions:
Stand-Alone Forms:
Changes to Home Medications: No
Discharge Medications:
DC Medications w/original date entered in [employer]
paroxetine HCl 10 mg tablet 10 mg PO DAILY Mental Health 01/27/13
multivitamin with folic acid 400 mcg tablet (Tab-A-Grayson) 1 tab PO DAILY Supplement 11/10/18
montelukast 10 mg tablet 10 mg PO DAILY Lung/breathing issues 09/07/19
famotidine 20 mg tablet 20 mg PO BID Gastrointestinal issue 01/06/21
acetaminophen 500 mg tablet (Tylenol Extra Strength) 500 mg PO BIDPRN PRN mild pain 11/08/23
albuterol sulfate 90 mcg/actuation aerosol inhaler 2 puff inhalation R Q4HPRN PRN sob 11/08/23
budesonide 0.5 mg/2 mL suspension for nebulization 0.5 mg inhalation R BIDPRN PRN sob 11/08/23
budesonide-formoterol HFA 160 mcg-4.5 mcg/actuation aerosol inhaler (Symbicort) 2 puff inhalation R BID Lung/Breathing Issues 11/08/23
fluticasone propionate 50 mcg/actuation nasal spray,suspension 2 spray intranasal DAILY Lung/Breathing Issues 11/08/23
insulin glargine 100 unit/mL (3 mL) subcutaneous pen (Lantus Solostar U-100 Insulin) 8 unit SC BID Diabetes 11/08/23
levothyroxine 50 mcg tablet 50 mcg PO DAILY Thyroid 11/08/23
metformin 1,000 mg tablet 1,000 mg PO BID Diabetes 11/08/23
omega 1-qyl-xsw-fish oil 1,000 mg (120 mg-180 mg) capsule (Fish Oil) 2 cap PO DAILY 11/08/23
umeclidinium 62.5 mcg/actuation blister powder for inhalation (Incruse Ellipta) 1 inh inhalation R DAILY Lung/Breathing Issues 11/08/23
prednisone 10 mg tablet 10 mg PO DIRECTED #30 tabs 12/31/23
Home Medication Changes
Pending Results: No
[2023-12-31 09:55] VITALS: O2SAT 93; O2SAT 96
--- NOTE | 2023-12-31 10:24 | PTCARENOTE ---
Reviewed discharge instructions with patient including tapering prednisone dose. Patient able to repeat back instructions and denies questions. Patient had ambulatory pulse ox with good results and no indication for oxygen. IV removed. Patient left
unit in wheelchair with staff escort.
--- NOTE | 2023-12-31 11:19 | CM ---
CM following re: d/c planning
Chart reviewed
Pt is medically stable for d/c
Pt has no skilled needs noted
IMM reviewed and copy provided
Pt states he drove self to the hospital
PLAN; d/c home no needs noted
== END 2023-12-31 10:11 | disposition home or self-care (01) | DRG 203 ==
LOC: 4 EAST ACU 15:40
PROVIDERS: Physician Assistant; ADMITTING PHYSICIAN Internal Medicine; ATTENDING PHYSICIAN Hospitalist; EMERGENCY PHYSICIAN Emergency Medicine; FAMILY PHYSICIAN Student in an Organized Health Care Education/Training Program
DX: J45.901 Unspecified asthma with (acute) exacerbation (principal); E11.65 Type 2 diabetes mellitus with hyperglycemia; K21.9 Gastro-esophageal reflux disease without esophagitis; E03.9 Hypothyroidism, unspecified; Z11.52 Encounter for screening for COVID-19
CPT/HCPCS: 71046; 80048; 80053; 82962; 83605; 85025; 85379; 86803; 87502; 87811; 93005; 94640; 94761; 96374; 96375; 99285

== ENCOUNTER → 2024-02-06 06:36 | Outpatient (REF) | payer MEDICARE, OTHER, SELFPAY | LOC: RAD 06:36 | PROVIDERS: ATTENDING PHYSICIAN Podiatrist; FAMILY PHYSICIAN Family Medicine | DX: I70.90 Unspecified atherosclerosis (principal); E11.8 Type 2 diabetes mellitus with unspecified complications | CPT/HCPCS: 93922; 93925 ==

== ENCOUNTER 2024-03-12 09:01 | Inpatient (IN) | payer MEDICARE, OTHER, SELFPAY ==
[2024-03-12] VITALS (7 sets, daily range): BP systolic 127–155; BP diastolic 60–95
[2024-03-12 05:57] LABS: % Eosinophils 8.1 % (0-6); % Immature Granulocytes 0.3 % (0-0.5); % Lymphocytes 30.2 % (20.5-51.1); % Monocytes 9.1 % (1.7-9.3); % Neutrophils 51.3 % (42.2-75.2); Absolute Basophils 0.1 10^3/uL (0-0.2); Absolute Eosinophils 0.7 10^3/uL (0-0.7); Absolute Lymphocytes 2.8 10^3/uL (1.2-3.4); Absolute Monocytes 0.8 10^3/uL (0.1-0.6); Absolute Neutrophils 4.7 10^3/uL (1.4-6.5); Hematocrit 43.2 % (39.0-52.0); Hemoglobin 14.9 g/dL (13.0-18.0); Mean Corp Hgb Conc. 34.5 g/dL (33.0-37.0); Mean Corpuscular Hgb 31.3 pg (27.0-31.0); Mean Corpuscular Volume 90.8 fL (80.0-94.0); Mean Platelet Volume 8.9 fL (7.4-10.4); Nucleated Red Blood Cells % 0 % (-); Platelet Count 300 10^3/uL (130-400); Red Blood Cell Count 4.76 10^6/uL (4.70-6.10); Red Cell Dist. Width 13.2 % (11.5-14.5); White Blood Cell Count 9.1 10^3/uL (4.8-10.8)
[2024-03-12] MEDS: DUONEB 3 ML INH ×4 (05:59→18:35)
[2024-03-12 06:12] LABS: ALT (SGPT) 34 U/L (0-50); AST (SGOT) 48 U/L (17-59); Albumin 4.5 g/dl (3.5-5.0); Alkaline Phosphatase 93 U/L (38-126); Blood Urea Nitrogen 23 mg/dl (9-20); Calcium 9.9 mg/dl (8.4-10.2); Carbon Dioxide 29 mmol/L (22-30); Chloride 103 mmol/L (98-107); Estimated Creatinine Clearance 93 ml/min; Glucose 89 mg/dl (70-99); Potassium 4.5 mmol/L (3.5-5.1); Sodium 141 mmol/L (135-145); Total Bilirubin 0.8 mg/dl (0.2-1.3); Total Protein 7.1 g/dl (6.3-8.2); eGFR > 60.00
--- NOTE | 2024-03-12 06:12 | ED.GENMED ---
History of Present Illness
General
Chief Complaint: Breathing Problem
Source: patient, records and previous hospital records
Exam Limitations: none
Time Seen by Provider: 03/12/24 06:01
Nursing documentation reviewed up to this point in time: agreed with
Travel History
Have you had any contact with someone who has COVID-19?: No
Do you have any symptoms of coronavirus? Fever > 100 degrees, chills, cough, shortness of breath, sore throat, loss of taste or smell, muscle aches, or headache?: No
History of Present Illness
History of Present Illness:
69-year-old male asthmatic followed by Dr. Perkins-diabetic on insulin-cough shortness of breath and wheeze for about 3 days using his neb and inhaler, worse last evening no fevers having trouble expectorating sputum, no hemoptysis no calf pain no
chest pain patient states pollen is a typical trigger for him
Past History
Past History
ED Past Medical History: Asthma, COPD, GERD and Other (Sinusitis)
ED Past Surgical History: Other (Sinus surgery)
Patient has exhibited threatening behavior?: No
PSI?: No
Social History
Tobacco: 2nd hand smoke exposure (As a child)
Alcohol: None
Drug: None
Personal:
Living: with family
Employment: Employed
Family History
Family History: Other (Noncontributory)
Review of Systems
Review of Systems
All Other Systems: Not applicable
Constitutional: Denies fever or fatigue
Respiratory: Reports cough and trouble breathing
Cardiac: Reports no symptoms
ABD/GI: Reports no symptoms
: Reports no symptoms
Musculoskeletal: Reports no symptoms
Skin: Reports no symptoms
Endocrine: Reports no symptoms
Phy Exam
Physical Exam
Physical Exam:
Physical Exam
General: 69 male mild to moderate respiratory distress
Neck: No no JVD no jaw
Heart: s1/s2 regular rate and rhythm, no murmur. equal radial pulses.
Lungs: Wheezing bilaterally
Neuro: alert and oriented. no focal neurological deficits
Skin: no rash
Psychiatric: well kept. interactive and cooperative
Extremities: no edema. no calf tenderness.
Scores
Heart Failure Risk
Heart Failure Risk Score: Not Applicable
Course
Orders/Labs/Results
Orders:
Orders
03/12/24 05:35
Ipratropium/Albuterol Sulfate [Duoneb] 3 ml .ROUTE .STK-MED ONE
03/12/24 05:38
Electrocardiogram (*1) Urgent
Reason for Study: Other
Other Reason for Exam: Respiratory Distress
Cardiac Monitoring- Treatment ONCE
EKG- Treatment ONCE
IV Insert/Care/Rem.- Treatment PRN
CR Chest - 2 Views Urgent
Comment:
Reason For Exam: respiratory distress
O2 Therapy [RESP] Urgent
Titrate/Wean O2 to maintain O2 sat greater than (%): 93
Special Instructions: TO MAINTAIN CONTINUOUS O2 SATS >/= 93%
Pulse Ox/cont/shift [RESP] Urgent
Quantity: 1
Special Instructions: continuous pulse ox
03/12/24 05:45
Complete Blood Count/With Diff Urgent
Comprehensive Metabolic Panel Urgent
NT-proBNP Urgent
Troponin I Urgent
03/12/24 05:59
Ipratropium/Albuterol Sulfate [Duoneb] 3 ml INH R NOW ONE
03/12/24 06:09
Albuterol Nebs [Ventolin Nebules] 2.5 mg INH R NOW STA
Dexamethasone Sod Phosphate [Decadron] 10 mg IV NOW STA
Peak Flow Rate [RESP] Urgent
Quantity: 1
Peak Flow Rate [RESP] Urgent
Quantity: 1
Pre-Bronchodilator: Yes
Post Bronchodilator: Yes
Special Instructions: Pre and Post Peak Flow before and after Bronchodilator
03/12/24 06:11
Albuterol Nebs [Ventolin Nebules] 2.5 mg .ROUTE .STK-MED ONE
Abnormal Lab Results
03/12/24
05:45
MCH 31.3 H pg
(27.0-31.0)
Absolute Monos (auto) 0.8 H 10^3/uL
(0.1-0.6)
Eosinophils % 8.1 H %
(0-6)
BUN 23 H mg/dl
(9-20)
03/12/24 05:45
03/12/24 05:45
Vital Signs
Initial and Last Documented VS:
Initial Vital Signs
Temp Pulse Resp BP Pulse Ox
97.5 F 86 22 144/95 93
03/12/24 05:37 03/12/24 05:37 03/12/24 05:37 03/12/24 05:37 03/12/24 05:37
Last Documented Vital Signs
Temp Pulse Resp BP Pulse Ox
97.5 F 76 19 142/86 95
03/12/24 05:37 03/12/24 07:03 03/12/24 07:03 03/12/24 07:03 03/12/24 07:03
MDM/Problems Addressed
Differential Diagnosis Includes:
Asthma bronchitis COPD pneumonia doubt PE
MDM/Problems Addressed:
Cough shortness of breath
Chronic conditions affecting care: DM, COPD and Asthma
Acute Exacerbation and/or Progression of Chronic Illness: DM, COPD and Asthma
*Radiology
Radiology exam reviewed: preliminary read by ED provider
*Pulse Oximetry
Patient hypoxic: yes
Comment: 92
*EKG
Interpreted by ED Provider?: Yes
Interpretation: abnormal
Comparison EKG: no comparison EKG present
Heart Rate: 78
Rate: normal
Rhythm: sinus
QRS Pattern: right bundle branch block
Ischemia: non-specific ST changes
*Stone Sandblaster Interpretation
Rate: normal
Interpretation: normal
Heart Rate: 78
Rhythm: sinus
*Critical Care Note
Total Time (30-74mins, 75-104mins- exclusive of procedures): Not Applicable
Patient Management
Social determinants of health affecting care: Living situation
Discussion with other providers: Hospitalist
Escalation/DeEscalation of care consider admission/obs:
Update patient still tachypneic wheezing peak flow 125-150 after nebs feels better after being placed on oxygen will require admission
Update Note
Update Note:
Update labs noted chest x-ray noted EKG noted
ED Attending Note
-
Portions of this chart may have been created with voice recognition software.� Occasional wrong word or��sound alike� substitutions may have occurred due to the inherent limitations of voice recognition software.
Discharge Plan
Departure
Patient Disposition: Admit
Date of Disposition: 03/12/24
Time of Disposition: 07:34
Admit to: Med/Surg
Presentation/result/management discussed w/ accepting MD/DO: Hospitalist
Patient with high blood pressure during this ER visit?: No
Condition: Fair
Covid-19: Not Applicable
Discharge Problem:
Asthma exacerbation
Prescriptions:
No Action
paroxetine HCl 10 MG tablet
10 mg PO DAILY
multivitamin with folic acid [Tab-A-Grayson] 1 TABLET tablet
1 tab PO DAILY
montelukast 10 MG tablet
10 mg PO DAILY
famotidine 20 MG tablet
20 mg PO BID
acetaminophen [Tylenol Extra Strength] 500 mg Tablet
500 mg PO BIDPRN PRN (Reason: mild pain)
levothyroxine 50 mcg Tablet
50 mcg PO DAILY
metformin 1,000 mg Tablet
1,000 mg PO BID
budesonide 0.5 mg/2 mL Suspension For Nebulization
0.5 mg INHALATION R BIDPRN PRN (Reason: sob)
albuterol sulfate 90 mcg/actuation Hfa Aerosol Inhaler
2 puff INHALATION R Q4HPRN PRN (Reason: sob)
fluticasone propionate 50 mcg/actuation Bassett,Suspension
2 spray INTRANASAL DAILY
budesonide-formoterol [Symbicort] 160-4.5 mcg/actuation Hfa Aerosol Inhaler
2 puff INHALATION R BID
insulin glargine [Lantus Solostar U-100 Insulin] 100 unit/mL (3 mL) Insulin Pen
8 unit SC BID
omega 8-tqa-thb-fish oil [Fish Oil] 1,000 mg (120 mg-180 mg) Capsule
2 cap PO DAILY
Incruse Ellipta 62.5 mcg/actuation Blister With Device
1 inh INHALATION R DAILY
prednisone 10 mg tablet
10 mg PO DIRECTED Qty: 30 0RF
Rx Instructions:
5 tabs daily x2 days, 4 tabs daily x2days, 3 tabs daily x2 days, 2 tabs daily x2 days, 1 tab daily x 2days.
Referrals:
Jeferson Toribio MD [Family Provider] -
Interventions
Interventions:
*Risk Screen - Suicide Last Done: 03/12/24 05:37
*General Assessment Last Done: 03/12/24 05:37
*Neglect/Abuse Screening Last Done: 03/12/24 05:37
ED- Fall Risk Assessment Last Done: 03/12/24 05:37
ED- Cardiac Assessment Last Done: 03/12/24 05:54
ED- Pulmonary Assessment Last Done: 03/12/24 05:54
Discharge Date and Time
Print Language: MALAY
[2024-03-12] MEDS: DECADRON 10 MG IV (06:21)
[2024-03-12] MEDS: VENTOLIN NEBULES 2.5 MG INH (06:21)
[2024-03-12 06:23] LABS: NT-proBNP 155 pg/ml; Troponin I < 0.012 ng/ml
--- NOTE | 2024-03-12 07:47 | HPS.HSE ---
Family Physician
-
Family Physician: Jeferson Toribio
Chief Complaint
-
cough/SOB/wheezing
History of Present Illness
HPI: 69-year-old male PMH asthma (followed by Dr. Perkins), IDDM, GERD, Hypothyroidism; p/w cough, shortness of breath and wheezing for a few days. Cough is occasionally productive. Symptoms are usually triggered by pollen. He feels like this is his
asthma attack again.
He denies to fevers, CP, Abd pain etc.
Medical History
Past Medical History
Past Medical History: Reports Asthma, GERD and IDDM
Past Surgical History: Reports None
Social History
Tobacco: Non-smoker
Alcohol: None
Drug: None
Personal:
Living: With Family
Employment: Employed
Family History
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
Allergies / Home Medications
Allergies reflects when Allergies were last updated in [employer].
Home Medications with original date entered in [employer]
Allergy/Medication List:
Allergies
Allergy/AdvReac Type Severity Reaction Status Date / Time
grass pollen-perennial rye, Allergy Shortness Verified 03/12/24 05:37
standar of Breath
tree and shrub pollen Allergy PINE Verified 03/12/24 05:37
TREES-SHORTNESS
OF BREATH
Home Medications
paroxetine HCl 10 mg tablet 10 mg PO DAILY Mental Health 01/27/13
multivitamin with folic acid 400 mcg tablet (Tab-A-Grayson) 1 tab PO DAILY Supplement 11/10/18
montelukast 10 mg tablet 10 mg PO DAILY Lung/breathing issues 09/07/19
famotidine 20 mg tablet 20 mg PO BID Gastrointestinal issue 01/06/21
acetaminophen 500 mg tablet (Tylenol Extra Strength) 500 mg PO BIDPRN PRN mild pain 11/08/23
albuterol sulfate 90 mcg/actuation aerosol inhaler 2 puff inhalation R Q4HPRN PRN sob 11/08/23
budesonide 0.5 mg/2 mL suspension for nebulization 0.5 mg inhalation R BIDPRN PRN sob 11/08/23
budesonide-formoterol HFA 160 mcg-4.5 mcg/actuation aerosol inhaler (Symbicort) 2 puff inhalation R BID Lung/Breathing Issues 11/08/23
fluticasone propionate 50 mcg/actuation nasal spray,suspension 2 spray intranasal DAILY Lung/Breathing Issues 11/08/23
insulin glargine 100 unit/mL (3 mL) subcutaneous pen (Lantus Solostar U-100 Insulin) 8 unit SC BID Diabetes 11/08/23
metformin 1,000 mg tablet 1,000 mg PO BID Diabetes 11/08/23
umeclidinium 62.5 mcg/actuation blister powder for inhalation (Incruse Ellipta) 1 inh inhalation R DAILY Lung/Breathing Issues 11/08/23
levothyroxine 75 mcg tablet (Synthroid) 75 mcg PO DAILY 03/12/24
omega 3-kjd-pnx-fish oil 1,200 mg (144 mg-216 mg) capsule (Fish Oil) 2 cap PO DAILY 03/12/24
Review of Systems
-
Respiratory: Reports See HPI, Cough, Trouble Breathing and Other (wheezing); Denies Hemoptysis
Physical Exam
Vital Signs
Vital Signs
Temp Pulse Resp BP Pulse Ox
36.4 C 76 19 142/86 95
03/12/24 05:37 03/12/24 07:03 03/12/24 07:03 03/12/24 07:03 03/12/24 07:03
Physical Exam
General: Well Developed, Well Nourished, Comfortable and Conversant
HEENT: NormoCephalic, Moist mucous membranes, Atraumatic and Oxygen (2L NC)
Respiratory: Clear, Wheezes (BL bases) and Non Labored Respirations; No Accessory Resp Muscle Use
Cardiac: S1/S2 and Regular Rhythm; No Murmur or Rub
GI: Soft, Non Tender, Non Distended and Normal Bowel Sounds; No Organomegaly
Rectal: Deferred by Provider
Musculoskeletal: No Clubbing, No Cyanosis and No Edema
Skin: No Rash
Neuro: Awake and Alert
Psych: Calm and Intact Judgment/Insight
Laboratory Results
-
03/12/24 05:45
03/12/24 05:45
Laboratory Results
Total Bilirubin 0.8 mg/dl (0.2-1.3) 03/12/24 05:45
AST 48 U/L (17-59) 03/12/24 05:45
ALT 34 U/L (0-50) 03/12/24 05:45
Alkaline Phosphatase 93 U/L (38-126) 03/12/24 05:45
Troponin I < 0.012 ng/ml 03/12/24 05:45
Data Reviewed
-
Diagnostic Radiology: Image Personally Visualized and interpreted
Lab Data: Labs Reviewed by me
Impression/Plan
-
HPI: 69-year-old male PMH asthma (followed by Dr. Perkins), IDDM, GERD, Hypothyroidism; p/w cough, shortness of breath and wheezing for a few days. Cough is occasionally productive. Symptoms are usually triggered by pollen. He feels like this is his
asthma attack again.
He denies to fevers, CP, Abd pain etc.
A/P:
# Acute asthma exacerbation
# Baseline mild persistent asthma.
# Acute hypoxic respiratory insufficiency
Asthma exacerbation likely triggered by seasonal allergies/ pollens.
Pt was placed on 2L NC in ED, cont O2 and wean as tolerated
CXR appear clear on my review, await final read
Check COVID and influenza. Can also check sputum culture.
s/p Decadron 10 mg IV in ED, cont Decadron 4 mg IV BID
Start Duonebs ATC and PRN, hold PAINT ROLLER WINDER Incruse Ellipta (avoid concurrent WALTER and LAMA use).
Start Mucinex, tessalon PRN, Acapella
Cont PAINT ROLLER WINDER Symbicort, Montelukast
# IDDM
watch BG while on IV steroid
Cont PAINT ROLLER WINDER Lantus 8 units twice daily
hold PAINT ROLLER WINDER metformin 1000 mg twice daily during hospital stay.
ISS
Carb control diet
# GERD
Pepcid
# Hypothyroidism
continue levothyroxine.
DVT ppx: lovenox SQ
Full code
[2024-03-12 08:28] LABS: COVID-19 Antigen Negative (Negative)
[2024-03-12 10:33] LABS: Glucose - Point of Care 115 mg/dl (70-99)
[2024-03-12] MEDS: MUCINEX 1200 MG PO ×2 (10:47→20:46)
--- NOTE | 2024-03-12 11:08 | CM ---
Patient seen at bedside with physician. Patient stated that he lives with his in a 2 story home. Patient does not have any DME at home. Patient stated that he uses the [facility] and the [facility] in [facility]. Patient stated
that he is independent of ADL's and IADL's. Patient stated that he does not have home O2 at this time, patient is on O2. CM will continue to follow for discharge planning needs.
Plan; home with no needs; watch for home O2
[2024-03-12] MEDS: PULMICORT 0.5 MG INH (11:10)
[2024-03-12] MEDS: NOVOLOG FLEXPEN-LOW RESISTANCE SC (11:35)
[2024-03-12 14:00] LABS: Glucose - Point of Care 143 mg/dl (70-99)
[2024-03-12] MEDS: TESSALON PERLES 200 MG PO (15:03)
--- NOTE | 2024-03-12 15:59 | CM ---
Patient seen at bedside. Patient stated that he lives with his in a 2 story home. Patient does not have any DME at home. Patient stated that he uses the [facility] and the [facility] in [facility]. Patient stated that he is
independent of ADL's and IADL's. Patient stated that he does not have home O2 at this time, patient is on O2. CM will continue to follow for discharge planning needs.
Plan; home with no needs; watch for home O2
[2024-03-12 16:36] LABS: Glucose - Point of Care 219 mg/dl (70-99)
[2024-03-12] MEDS: LOVENOX 40 MG SC (17:42)
[2024-03-12] MEDS: DECADRON 4 MG IV (17:42)
[2024-03-12] MEDS: NOVOLOG FLEXPEN-LOW RESISTANCE 2 UNITS SC (17:43)
[2024-03-12] MEDS: SYMBICORT 160/4.5 MCG INHALER 2 PUFF INH (18:44)
[2024-03-12] MEDS: PEPCID 20 MG PO (20:46)
[2024-03-12 21:34] LABS: Glucose - Point of Care 233 mg/dl (70-99)
[2024-03-12] MEDS: LANTUS 0.0800000000000000017 UNITS SC (21:46)
[2024-03-13] MEDS: DUONEB 3 ML INH ×5 (02:04→19:57)
[2024-03-13] MEDS: SYNTHROID 75 MCG PO (05:48)
[2024-03-13] MEDS: DECADRON 4 MG IV (05:48)
[2024-03-13 06:17] LABS: Glucose - Point of Care 133 mg/dl (70-99)
[2024-03-13 06:42] LABS: Hematocrit 42.6 % (39.0-52.0); Hemoglobin 14.6 g/dL (13.0-18.0); Mean Corp Hgb Conc. 34.3 g/dL (33.0-37.0); Mean Corpuscular Hgb 30.7 pg (27.0-31.0); Mean Corpuscular Volume 89.7 fL (80.0-94.0); Mean Platelet Volume 9.1 fL (7.4-10.4); Platelet Count 293 10^3/uL (130-400); Red Blood Cell Count 4.75 10^6/uL (4.70-6.10); Red Cell Dist. Width 13.6 % (11.5-14.5); White Blood Cell Count 9.3 10^3/uL (4.8-10.8)
[2024-03-13] MEDS: NOVOLOG FLEXPEN-LOW RESISTANCE SC ×2 (06:46→16:37)
[2024-03-13 07:04] LABS: Blood Urea Nitrogen 26 mg/dl (9-20); Carbon Dioxide 29 mmol/L (22-30); Chloride 99 mmol/L (98-107); Estimated Creatinine Clearance 106 ml/min; Glucose 140 mg/dl (70-99); Potassium 4.6 mmol/L (3.5-5.1); Sodium 138 mmol/L (135-145); eGFR > 60.00
[2024-03-13] MEDS: PAXIL 10 MG PO (07:09)
[2024-03-13] MEDS: MUCINEX 1200 MG PO ×2 (07:09→19:13)
[2024-03-13] MEDS: LANTUS 0.0800000000000000017 UNITS SC ×2 (07:09→21:37)
[2024-03-13] MEDS: PEPCID 20 MG PO ×2 (07:09→19:13)
[2024-03-13] MEDS: SINGULAIR 10 MG PO (07:09)
[2024-03-13] MEDS: SYMBICORT 160/4.5 MCG INHALER 2 PUFF INH ×2 (07:54→19:58)
[2024-03-13 07:55] VITALS: BP 147/88
[2024-03-13 09:38] LABS: Glycohemoglobin (HgbA1c) 6.2 % (4.0-5.6)
[2024-03-13 11:37] LABS: Glucose - Point of Care 164 mg/dl (70-99)
[2024-03-13] MEDS: NOVOLOG FLEXPEN-LOW RESISTANCE 1 UNITS SC (11:58)
--- NOTE | 2024-03-13 14:12 | W.PN.HOSP.TC ---
Today's Communication/Plan
-
consult pulm
wean steroids
hopeful home tomorrow
Assessment / Plan
Assessment / Plan
pt is a 69 year old male
Acute asthma exacerbation--Baseline mild persistent asthma with Acute hypoxic respiratory insufficiency (resolved--off O2)--triggered by seasonal allergies/ pollens--s/p Decadron 10 mg IV in ED, cont Decadron 4 mg IV BID
Start Duonebs ATC and PRN, hold HARBOR DEPARTMENT MANAGER Incruse Ellipta (avoid concurrent WALTER and LAMA use)--Start Mucinex, tessalon PRN, Acapella --Cont HARBOR DEPARTMENT MANAGER Symbicort, Montelukast --pt with peripheral eosinophilia on admission,wean steroids
type 2 DM --IDDM--watch BG while on IV steroid--Cont HARBOR DEPARTMENT MANAGER Lantus 8 units twice daily-- HARBOR DEPARTMENT MANAGER metformin 1000 mg twice daily during hospital stay--ISS--Carb control diet
GERD--Pepcid
Hypothyroidism--continue levothyroxine.
DVT ppx: lovenox SQ
Full code
Anticipated Discharge: Within 24 hours
Subjective/Interval History
-
Date of Service: March 13, 2024
pt doing much better--no wheezing and off O2
Objective Data
-
Labs:
Laboratory Results
03/13/24
06:11
WBC 9.3
Hgb 14.6
Hct 42.6
Plt Count 293
Sodium 138
Potassium 4.6
Chloride 99
Carbon Dioxide 29
BUN 26 H
Creatinine 0.7
Glucose 140 H
Calcium 10.0
Vital Signs:
max temp for 24 hours
03/12/24
23:00
Temp 98.0 F
Vital Signs
Temp Pulse Resp BP Pulse Ox
97.6 F 68 16 147/88 95
03/13/24 07:55 05/17/24 10:59 03/13/24 10:59 03/13/24 07:55 03/13/24 10:59
I&O
03/12/24 03/13/24 03/14/24
06:59 06:59 06:59
Intake Total 960 / 960
Balance 960 / 960
Review of Systems
-
All other systems: Reviewed and negative
Physical Exam
-
General: Well Developed, Well Nourished and No Apparent Distress
HEENT: Normocephalic and Atraumatic
Respiratory: Clear to Auscultation; Negative Wheezes, Rales, Rhonchi or Crackles
Cardiac: Regular Rhythm and S1/S2; Negative Murmur
GI: Soft, Nontender, Nondistended and Normal Bowel Sounds
Musculoskeletal: No Clubbing, No Cyanosis and No Edema
Neuro: Awake and Alert
Psych: Calm
--- NOTE | 2024-03-13 14:35 | CON.PUL ---
Consultation
Consultation Request
Date/Time Consultation Requested: 03/13/24
Date/Time Consultation Performed: 03/13/24
Performing Provider: Rebecca
Reason for Consultation: AE Asthma
Medical History
-
History of Present Illness:
69-year-old male with past history of severe persistent asthma (followed by Dr. Perkins), allergic rhinitis, ASA sensitivity, IDDM, GERD, presenting to ER with cough, shortness of breath and wheezing for a few days. Cough is occasionally
productive. Symptoms are usually triggered by pollen. He feels like this is his asthma attack again. Has history of frequent exacerbations of asthma.
Has significantly elevated eosinophils on CBC in past, elevated again on presentation.
Has tried to get biologics in past but insurance would not cover.
Past Medical History
Past Medical History: Other (see list below)
Social History
Tobacco: Non-smoker
Alcohol: None
Drug: None
Family History
Family History: Reviewed & Not Pertinent
Allergies / Home Medications
Allergies
Allergy/AdvReac Type Severity Reaction Status Date / Time
grass pollen-perennial rye, Allergy Shortness Verified 03/12/24 05:37
standar of Breath
tree and shrub pollen Allergy PINE Verified 03/12/24 05:37
TREES-SHORTNESS
OF BREATH
Home Medications
�Medication �Instructions �Recorded �Confirmed �Last Taken �Type
paroxetine HCl 10 mg tablet 10 mg PO DAILY Mental Health 01/27/13 03/12/24 03/12/24 History
multivitamin with folic acid 400 1 tab PO DAILY Supplement 11/10/18 03/12/24 03/11/24 History
mcg tablet (Tab-A-Grayson)
montelukast 10 mg tablet 10 mg PO DAILY Lung/breathing 09/07/19 03/12/24 03/12/24 History
issues
famotidine 20 mg tablet 20 mg PO BID Gastrointestinal issue 01/06/21 03/12/24 03/12/24 History
acetaminophen 500 mg tablet 500 mg PO BIDPRN PRN mild pain 11/08/23 03/12/24 03/11/24 History
(Tylenol Extra Strength)
albuterol sulfate 90 mcg/actuation 2 puff inhalation R Q4HPRN PRN sob 11/08/23 03/12/24 03/11/24 History
aerosol inhaler
budesonide 0.5 mg/2 mL suspension 0.5 mg inhalation R BIDPRN PRN sob 11/08/23 03/12/24 2 Days Ago History
for nebulization ~03/10/24
budesonide-formoterol HFA 160 2 puff inhalation R BID 11/08/23 03/12/24 03/12/24 History
mcg-4.5 mcg/actuation aerosol Lung/Breathing Issues
inhaler (Symbicort)
fluticasone propionate 50 2 spray intranasal DAILY Allergies 11/08/23 03/12/24 03/12/24 History
mcg/actuation nasal
spray,suspension
insulin glargine 100 unit/mL (3 8 unit SC BID Diabetes 11/08/23 03/12/24 03/12/24 History
mL) subcutaneous pen (Lantus
Solostar U-100 Insulin)
metformin 1,000 mg tablet 1,000 mg PO BID Diabetes 11/08/23 03/12/24 03/12/24 History
umeclidinium 62.5 mcg/actuation 1 inh inhalation R DAILY 11/08/23 03/12/24 03/12/24 History
blister powder for inhalation Lung/Breathing Issues
(Incruse Ellipta)
levothyroxine 75 mcg tablet 75 mcg PO DAILY Thyroid 03/12/24 03/12/24 03/12/24 History
(Synthroid)
omega 0-tau-qms-fish oil 1,200 mg 2 cap PO DAILY Supplement 03/12/24 03/12/24 03/11/24 History
(144 mg-216 mg) capsule (Fish Oil)
Review of Systems
-
History Source: Patient
All other systems: Negative unless noted
Vitals / Labs / Diagnostic Testing
Vital Signs
Temp Pulse Resp BP Pulse Ox
97.6 F 68 16 147/88 95
03/13/24 07:55 03/13/24 10:59 03/13/24 10:59 03/13/24 07:55 03/13/24 10:59
Lab Data
03/13/24 06:11
03/13/24 06:11
Microbiology
03/13/24 12:06 Sputum Gram Stain - Preliminary
03/12/24 08:02 Nasal Swab Influenza Types A & B (SHANTAL) - Final
Negative for Influenza A & B, NAAT
Negative results must be combined with clinical observations
and patient history.
Nucleic Acid Amplification test (NAAT)performed on the
[employer] platform.
Diagnostic Testing:
Physical Exam
-
HEENT: Normocephalic, Anicteric and Moist Mucous Membranes
Cardiovascular: S1/S2 and Regular Rhythm
Respiratory: Clear
GI: Soft, Non Distended and Non Tender
Neurology: Awake, Alert, Oriented, AO x 3 and No Motor Deficits
Skin: Warm, Dry and Other (rash on R ankle)
General: Comfortable and Other (NAD)
Assessment
-
69-year-old male with past history of severe persistent asthma (followed by Dr. Perkins), allergic rhinitis, ASA sensitivity, IDDM, GERD, presenting to ER with cough, shortness of breath and wheezing for a few days. Has history of frequent
exacerbations of asthma. Has significantly elevated eosinophils on CBC in past, elevated again on presentation. Has tried to get biologics in past but insurance would not cover. We are consulted for eval.
Acute asthma exacerbation
SOB
Cough
Peripheral eosinophilia, 8.1%
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
History of recurrent asthma exacerbations
Adult onset (dx at age 48), follows Dr Perkins
Requires abx and steroids 3-4xyr
6th hospitalization this year
Hx NL Ige/Aspergillus antibodies not detected
Alpha-1 antitrypsin level and phenotype were normal.
Mild peripheral eosinophilia in the past
Maintained on Symbicort and Singulair.
Mod - severe OLD with marked bronchodilator response (on PFT's 01/27/13)
Hx chronic sinus dz - 3 prior sinus surgeries (last in January 2012)
Chronic PND
History of allergy to ragweed and white pine
Hx Influenza A (2008)
Hx PNA October 2011 associated with bilat nodular infiltrates and mild hilar adenopathy/radiographically resolved on CXR
Mild pulmonary hypertension, PASP 40, per ECHO 2012
Family history lung cancer/asthma
Anxiety d/o
GERD, controlled
Nonsmoker
Plan
O2 protocol if needed, has been stable on room air
Not known to be on home O2
Started on dexamethasone IV, transitioned to PO prednisone by team
Continue home inhalers, nebs PRN
Prednisone taper at discharge
He has history of allergic rhinitis
EOS present on CBC 8%
Would be a good candidate for biologics which we reviewed again
May look into patients assistance programs for this and this has been shown to reduce asthma hospitalizations/prednisone use
As previously discussed in the office, he may benefit from biologic therapy for asthma given prior peripheral eosinophilia and frequent exacerbations despite maximal medical regimen.
DVT prophylaxis with subcutaneous Lovenox
Patient will follow in office with Dr Perkins upon discharge
Discharge planning per team, he states he is ready to go home
Diagnostic Data
CXR 03/12/24- No acute cardiopulmonary process.
Chest X-Ray -, c/w 06-19-21 : no infiltrates
SILVIA doppler 06-13-15: no DVT
CT Chest 09/04/21- 1. MODERATE to SEVERE CHRONIC BRONCHITIS in both lungs without definitive change from 04/13/2019.
2. Mild secretions in the trachea and both mainstem bronchi.
3. Mild amount of chronic peripheral endobronchial disease in the right middle lobe.
4. No CT evidence for bronchiectasis.
5. Moderate calcific atherosclerotic plaque in the coronary arteries.
CT chests s/c 04-13-19: Views bronchial wall thickening, no bronchiectasis, mucous plugging or bronchial occlusion. No significant air trapping respiration. No emphysema or fibrosis. No pulmonary nodules.
2D Echo: 01/27/2013. Normal LVEF 60 to 65%, normal regional wall motion. Mild concentric LVH. Normal diastolic filling pattern. Normal right ventricular size and function. No valvular abnormalities.
02-13-12 functional endoscopic sinus surgery and polypectomy: Right sinus contents: Inflamed respiratory mucosa with heavy mixed infiltrates of eosinophils, lymphocytes and plasma cells, focal squamous metaplasia, consisting with chronic sinusitis.
Left sinus contents, chronically inflamed respiratory mucosa with areas of moderate to heavy infiltrates with lymphocytes, plasma cells, eosinophils, focal squamous metaplasia, consistent with sinusitis.
PFT 01/2013: FVC is 3.5L or 66% of predicted; FEV1 is 1.38L or 34% of predicted; FEV1/FVC of 39%. FEF 25-75 percent is 0.48L/s or 15% of predicted
[place] 01/06/24: FVC 3.59/81%, FEV1 2.18/67%, ratio 63. This is stable
Reports and relevant images were personally reviewed.
[2024-03-13 15:50] VITALS: BP 136/74
--- NOTE | 2024-03-13 16:13 | CM ---
Case management following for d/c planning
Oxygen d/c'ed. Weaning steroids
Plan - anticipate home no needs
[2024-03-13 16:35] LABS: Glucose - Point of Care 127 mg/dl (70-99)
[2024-03-13] MEDS: LOVENOX SC (17:07)
[2024-03-13] MEDS: TESSALON PERLES 200 MG PO (17:13)
[2024-03-13] MEDS: GLUCOPHAGE 1000 MG PO (17:13)
[2024-03-13 21:33] LABS: Glucose - Point of Care 120 mg/dl (70-99)
[2024-03-13 23:09] VITALS: BP 129/73
[2024-03-14] MEDS: SYNTHROID 75 MCG PO (06:04)
[2024-03-14 06:18] LABS: Glucose - Point of Care 96 mg/dl (70-99)
[2024-03-14] MEDS: NOVOLOG FLEXPEN-LOW RESISTANCE SC (06:36)
[2024-03-14 06:38] LABS: % Basophils 0.3 % (0-2); % Eosinophils 0.6 % (0-6); % Immature Granulocytes 0.4 % (0-0.5); % Lymphocytes 20.8 % (20.5-51.1); % Monocytes 9.7 % (1.7-9.3); % Neutrophils 68.2 % (42.2-75.2); Absolute Eosinophils 0.1 10^3/uL (0-0.7); Absolute Lymphocytes 2.2 10^3/uL (1.2-3.4); Absolute Neutrophils 7.2 10^3/uL (1.4-6.5); Hematocrit 39.6 % (39.0-52.0); Hemoglobin 13.7 g/dL (13.0-18.0); Mean Corp Hgb Conc. 34.6 g/dL (33.0-37.0); Mean Corpuscular Volume 89.6 fL (80.0-94.0); Mean Platelet Volume 9.4 fL (7.4-10.4); Nucleated Red Blood Cells % 0 % (-); Platelet Count 265 10^3/uL (130-400); Red Blood Cell Count 4.42 10^6/uL (4.70-6.10); Red Cell Dist. Width 13.5 % (11.5-14.5); White Blood Cell Count 10.5 10^3/uL (4.8-10.8)
[2024-03-14] MEDS: SYMBICORT 160/4.5 MCG INHALER 2 PUFF INH (06:48)
[2024-03-14] MEDS: DUONEB 3 ML INH (06:48)
[2024-03-14 06:58] LABS: Blood Urea Nitrogen 30 mg/dl (9-20); Calcium 9.7 mg/dl (8.4-10.2); Carbon Dioxide 33 mmol/L (22-30); Chloride 100 mmol/L (98-107); Estimated Creatinine Clearance 93 ml/min; Glucose 94 mg/dl (70-99); Potassium 4.5 mmol/L (3.5-5.1); Sodium 139 mmol/L (135-145); eGFR > 60.00
[2024-03-14 07:53] VITALS: BP 140/86
[2024-03-14] MEDS: SINGULAIR 10 MG PO (09:12)
[2024-03-14] MEDS: PAXIL 10 MG PO (09:12)
[2024-03-14] MEDS: GLUCOPHAGE 1000 MG PO (09:12)
[2024-03-14] MEDS: MUCINEX 1200 MG PO (09:12)
[2024-03-14] MEDS: DELTASONE 40 MG PO (09:12)
[2024-03-14] MEDS: PEPCID 20 MG PO (09:12)
[2024-03-14] MEDS: THERAGRAN 1 TABLET PO (09:12)
[2024-03-14] MEDS: LANTUS 0.0800000000000000017 UNITS SC (09:14)
--- NOTE | 2024-03-14 09:30 | W.PN.HOSP.TC ---
Today's Communication/Plan
-
d/c
Assessment / Plan
Assessment / Plan
pt is a 69 year old male
Acute asthma exacerbation--Baseline mild persistent asthma with Acute hypoxic respiratory insufficiency (resolved--off O2)--triggered by seasonal allergies/ pollens--s/p Decadron 10 mg IV in ED, cont Decadron 4 mg IV BID
Start Duonebs ATC and PRN, hold NURSING SECRETARY Incruse Ellipta (avoid concurrent WALTER and LAMA use)--Start Mucinex, tessalon PRN, Acapella --Cont NURSING SECRETARY Symbicort, Montelukast --pt with peripheral eosinophilia on admission--ok for d/c with steroid taper and pulm
f/u
type 2 DM --IDDM--watch BG while on IV steroid--Cont NURSING SECRETARY Lantus 8 units twice daily-- NURSING SECRETARY metformin 1000 mg twice daily during hospital stay--ISS--Carb control diet
GERD--Pepcid
Hypothyroidism--continue levothyroxine.
DVT ppx: lovenox SQ
Full code
Anticipated Discharge: Today
Subjective/Interval History
-
Date of Service: March 14, 2024
pt ok for d/c
Objective Data
-
Labs:
Laboratory Results
03/14/24
06:09
WBC 10.5
Hgb 13.7
Hct 39.6
Plt Count 265
Sodium 139
Potassium 4.5
Chloride 100
Carbon Dioxide 33 H
BUN 30 H
Creatinine 0.8
Glucose 94
Calcium 9.7
Vital Signs:
max temp for 24 hours
03/13/24
15:50
Temp 98.1 F
Vital Signs
Temp Pulse Resp BP Pulse Ox
97.7 F 60 16 140/86 97
03/14/24 07:53 03/14/24 07:53 03/14/24 07:53 03/14/24 07:53 03/14/24 07:53
I&O
03/13/24 03/14/24 03/15/24
06:59 06:59 06:59
Intake Total 960 / 960 1380 / 1380
Balance 960 / 960 1380 / 1380
Review of Systems
-
All other systems: Reviewed and negative
Physical Exam
-
General: Well Developed, Well Nourished and No Apparent Distress
HEENT: Normocephalic and Atraumatic; Negative Oxygen
Respiratory: Wheezes (faint)
Cardiac: Regular Rhythm and S1/S2; Negative Murmur
GI: Soft, Nontender, Nondistended and Normal Bowel Sounds
Musculoskeletal: No Clubbing, No Cyanosis and No Edema
--- NOTE | 2024-03-14 10:49 | CM ---
Pt for d/c
Has ride with his to home
Discussed IMM
Plan - Home no needs
--- NOTE | 2024-03-14 13:35 | W.DCSUMMARY ---
Discharge Summary
Discharge Data
Date of Admission: 03/12/24
Date of Discharge: 03/14/24
-
Pending Results: No
Hospital Course
Primary care physician : Jeferson Toribio
Principal Discharge diagnosis : Acute asthma exacerbation
Chronic Discharge diagnosis : Type 2 diabetes mellitus insulin requiring, gastroesophageal reflux disease, hypothyroidism
Hospital Course : Patient is a 69-year-old male with a past medical history of asthma followed by Dr. Perkins who presented with complaints of shortness of breath and wheezing for few days prior to admission. He has a cough which is occasionally
productive. He told me his symptoms were usually triggered by pollen and allergies. Also of note, he has eosinophils and has been following up with pulmonary for more definitive treatment. Patient was admitted.
Problem #1: Acute asthmatic exacerbation. Patient was admitted and seen in consultation by pulmonary. He was started on IV Decadron along with Mucinex, Tessalon, Acapella, DuoNebs. He is feeling much improved and was switched to oral prednisone.
Pulmonary has been trying to get him on Biologics unfortunately, his insurance will not approve this. He is feeling much improved and will go home on a prednisone taper. He should follow-up with pulmonary as outlined.
Problem #2: All other medical issues. These include Type 2 diabetes mellitus insulin requiring, gastroesophageal reflux disease, hypothyroidism. These medical issues were stable during his hospitalization. Medications were continued as able.
Patient is stable for discharge home at this time. If there are any questions regarding this dictation or his hospital stay, please not hesitate to call. Our office number is [phone].
Discharge Plan
-
Patient Disposition: Home (Routine Discharge)
Discharge Diagnosis/Procedures: Acute asthmatic exacerbation, type 2 diabetes mellitus with insulin requiring, gastroesophageal reflux disease, hypothyroidism
Condition: Good
Diet: Diabetic, Carb Controlled
Activity: As tolerated
Driving Restrictions: As prior to admission
Bathing Restrictions: None
Referrals:
Nhi Perkins MD [Active] - (3-4 weeks, PFTs)
Jeferson Toribio MD [Family Provider] - in less than 1 week
Prescriptions:
New
benzonatate 100 mg Capsule
200 mg PO TIDPRN PRN (Reason: cough) Qty: 30 0RF
guaifenesin 600 mg Tablet Extended Release 12hr
1,200 mg PO Q12 Qty: 0 0RF
prednisone 10 mg Tablet
See Rx Instructions .ROUTE .COMPLEX Qty: 30 0RF
Rx Instructions:
Take By Mouth:
40 mg daily x3 days, 30 mg daily x3 days,
20 mg daily x3 days, 10 mg daily x3 days.
Continued
paroxetine HCl 10 MG tablet
10 mg PO DAILY
multivitamin with folic acid [Tab-A-[place]ayson] 1 TABLET tablet
1 tab PO DAILY
montelukast 10 MG tablet
10 mg PO DAILY
famotidine 20 MG tablet
20 mg PO BID
acetaminophen [Tylenol Extra Strength] 500 mg Tablet
500 mg PO BIDPRN PRN (Reason: mild pain)
metformin 1,000 mg Tablet
1,000 mg PO BID
budesonide 0.5 mg/2 mL Suspension For Nebulization
0.5 mg INHALATION R BIDPRN PRN (Reason: sob)
albuterol sulfate 90 mcg/actuation Hfa Aerosol Inhaler
2 puff INHALATION R Q4HPRN PRN (Reason: sob)
fluticasone propionate 50 mcg/actuation [place],Suspension
2 spray INTRANASAL DAILY
budesonide-formoterol [Symbicort] 160-4.5 mcg/actuation Hfa Aerosol Inhaler
2 puff INHALATION R BID
insulin glargine [Lantus Solostar U-100 Insulin] 100 unit/mL (3 mL) Insulin Pen
8 unit SC BID
Incruse Ellipta 62.5 mcg/actuation Blister With Device
1 inh INHALATION R DAILY
levothyroxine [Synthroid] 75 mcg Tablet
75 mcg PO DAILY
omega 5-dqv-sqt-fish oil [Fish Oil] 1,200 (144-216) mg Capsule
2 cap PO DAILY
Discharge Orders:
Discharge Patient (As Directed); Ordered 03/14/24
Ordered By: Ambar Duque
Discharge Date and Time
Discharge Date/Time: 03/14/24 10:49
Print Language: CROATIAN
== END 2024-03-14 10:49 | disposition home or self-care (01) | DRG 203 ==
LOC: 3 WEST ACU 09:01
PROVIDERS: Emergency Medicine; ADMITTING PHYSICIAN Internal Medicine; ATTENDING PHYSICIAN Internal Medicine; CONSULT PHYSICIAN Internal Medicine; EMERGENCY PHYSICIAN Emergency Medicine; FAMILY PHYSICIAN Family Medicine
DX: J45.51 Severe persistent asthma with (acute) exacerbation (principal); R09.02 Hypoxemia; R06.89 Other abnormalities of breathing; E11.9 Type 2 diabetes mellitus without complications; Z79.4 Long term (current) use of insulin; K21.9 Gastro-esophageal reflux disease without esophagitis; E03.9 Hypothyroidism, unspecified; Z11.52 Encounter for screening for COVID-19
CPT/HCPCS: 71046; 80048; 80053; 82962; 83036; 83735; 83880; 84484; 85025; 85027; 87070; 87205; 87502; 87811; 93005; 94640; 96374; 99285

== ENCOUNTER 2024-05-10 16:18 | Inpatient (IN) | payer MEDICARE, OTHER, SELFPAY ==
[2024-05-10] VITALS (7 sets, daily range): BP systolic 124–163; BP diastolic 76–98; BMI 27.1; BMI 27.6
[2024-05-10] MEDS: DECADRON 10 MG IV (12:34)
[2024-05-10 12:59] LABS: % Basophils 0.8 % (0-2); % Eosinophils 5.7 % (0-6); % Immature Granulocytes 0.3 % (0-0.5); % Lymphocytes 21.3 % (20.5-51.1); % Monocytes 7.3 % (1.7-9.3); % Neutrophils 64.6 % (42.2-75.2); Absolute Basophils 0.1 10^3/uL (0-0.2); Absolute Eosinophils 0.5 10^3/uL (0-0.7); Absolute Monocytes 0.7 10^3/uL (0.1-0.6); Absolute Neutrophils 6.1 10^3/uL (1.4-6.5); Hematocrit 41.3 % (39.0-52.0); Hemoglobin 14.5 g/dL (13.0-18.0); Mean Corp Hgb Conc. 35.1 g/dL (33.0-37.0); Mean Corpuscular Hgb 30.9 pg (27.0-31.0); Mean Corpuscular Volume 88.1 fL (80.0-94.0); Mean Platelet Volume 9.3 fL (7.4-10.4); Nucleated Red Blood Cells % 0 % (-); Platelet Count 287 10^3/uL (130-400); Red Blood Cell Count 4.69 10^6/uL (4.70-6.10); Red Cell Dist. Width 13.3 % (11.5-14.5); White Blood Cell Count 9.5 10^3/uL (4.8-10.8)
[2024-05-10 13:10] LABS: COVID-19 Antigen Negative (Negative)
[2024-05-10 13:18] LABS: Blood Urea Nitrogen 23 mg/dl (9-20); Calcium 9.8 mg/dl (8.4-10.2); Carbon Dioxide 25 mmol/L (22-30); Chloride 106 mmol/L (98-107); Estimated Creatinine Clearance 83 ml/min; Glucose 161 mg/dl (70-99); Potassium 4.1 mmol/L (3.5-5.1); Sodium 141 mmol/L (135-145); eGFR > 60.00
--- NOTE | 2024-05-10 14:28 | ED.GENMED ---
History of Present Illness
General
Chief Complaint: Breathing Problem
Source: patient
Exam Limitations: none
Time Seen by Provider: 05/10/24 12:04
Nursing documentation reviewed up to this point in time: agreed with
History of Present Illness
History of Present Illness:
69-year-old male with history of asthma, COPD, GERD, diabetes presenting to the emergency department today With concerns of shortness of breath and productive cough over the past few days also noted some chills subjective fevers denies
significant chest pain nausea vomiting. Denies recent illness.
Past History
Past History
ED Past Medical History: Asthma, COPD, GERD and Other (Sinusitis)
ED Past Surgical History: Other (Sinus surgery)
Patient has exhibited threatening behavior?: No
PSI?: No
Social History
Tobacco: 2nd hand smoke exposure (As a child)
Alcohol: None
Drug: None
Personal:
Living: with family
Employment: Employed
Family History
Family History: Other (Noncontributory)
Review of Systems
Review of Systems
Allergies reviewed?: Yes
All Other Systems: ROS reviewed and negative except as documented in HPI and ROS
Phy Exam
Physical Exam
Physical Exam:
GENERAL: Alert , in no apparent distress
EYE: pupils equal and reactive
NECK: Supple, no significant adenopathy.
ENT: o/p clr, mmm.
CARDIAC: Regular rate and rhythm .
LUNGS: Diffuse inspiratory and expiratory wheezing. Decreased air movement
ABDOMEN: Soft, without focal tenderness, no r/g, no cvat
NEUROLOGICAL: Alert and oriented, no focal neuro deficits
SKIN: Warm and dry, skin intact.
MUSCULOSKELETAL: No edema, well perfused.
PSYCH: Normal and appropriate interaction.
Scores
Heart Failure Risk
Heart Failure Risk Score: Not Applicable
Course
Orders/Labs/Results
Orders:
Orders
05/10/24 11:55
Ipratropium/Albuterol Sulfate [Duoneb] 3 ml .ROUTE .STK-MED ONE
05/10/24 12:23
Dexamethasone Sod Phosphate [Decadron] 10 mg IV NOW STA
CR Chest - 2 Views Urgent
Comment:
Reason For Exam: sob
05/10/24 12:35
BMP [Basic Metabolic Panel] Urgent
CBC/With Diff [Complete Blood Count/With Diff] Urgent
COVID-19 Antigen Urgent
Source: Nasal Swab
05/10/24 14:54
Azithromycin [Zithromax] 500 mg PO NOW STA
Ipratropium/Albuterol Sulfate [Duoneb] 3 ml INH R NOW ONE
Abnormal Lab Results
05/10/24
12:35
RBC 4.69 L 10^6/uL
(4.70-6.10)
Absolute Monos (auto) 0.7 H 10^3/uL
(0.1-0.6)
BUN 23 H mg/dl
(9-20)
Glucose 161 H mg/dl
(70-99)
05/10/24 12:35
05/10/24 12:35
Vital Signs
Initial and Last Documented VS:
Initial Vital Signs
Temp Pulse Resp BP Pulse Ox
98.9 F 90 24 149/98 95
05/10/24 11:17 05/10/24 11:17 05/10/24 11:17 05/10/24 11:17 05/10/24 11:17
Last Documented Vital Signs
Temp Pulse Resp BP Pulse Ox
98.9 F 68 14 125/78 92
05/10/24 11:17 05/10/24 14:15 05/10/24 14:15 05/10/24 14:00 05/10/24 14:15
MDM/Problems Addressed
MDM/Problems Addressed:
69-year-old male presenting to the emergency department today with concerns of shortness of breath worsening over the past few days. Patient has significant diffuse inspiratory expiratory wheezing also had subjective fevers and chills. Patient
started on DuoNeb as well as steroid. Also given azithromycin with history of COPD chest x-ray without acute abnormalities patient was given treatment here reassessed after an hour but still feeling very short of breath with light exertion.
Concerning this plan to admit for further management overnight and monitoring.
*Critical Care Note
Total Time (30-74mins, 75-104mins- exclusive of procedures): Not Applicable
ED Attending Note
-
Portions of this chart may have been created with voice recognition software.� Occasional wrong word or��sound alike� substitutions may have occurred due to the inherent limitations of voice recognition software.
Discharge Plan
Departure
Patient Disposition: Admit
Date of Disposition: 05/10/24
Time of Disposition: 14:57
Admit to: Med/Surg
Admit to doctor: Claudette
Presentation/result/management discussed w/ accepting MD/DO: Hospitalist
Patient with high blood pressure during this ER visit?: No
Condition: Good
Covid-19: Not Applicable
Discharge Problem:
COPD exacerbation
Prescriptions:
No Action
paroxetine HCl 10 MG tablet
10 mg PO DAILY
multivitamin with folic acid [Tab-A-[place]] 1 TABLET tablet
1 tab PO DAILY
montelukast 10 MG tablet
10 mg PO DAILY
famotidine 20 MG tablet
20 mg PO BID
acetaminophen [Tylenol Extra Strength] 500 mg Tablet
500 mg PO BIDPRN PRN (Reason: mild pain)
metformin 1,000 mg Tablet
1,000 mg PO BID
budesonide 0.5 mg/2 mL Suspension For Nebulization
0.5 mg INHALATION R BIDPRN PRN (Reason: sob)
albuterol sulfate 90 mcg/actuation Hfa Aerosol Inhaler
2 puff INHALATION R Q4HPRN PRN (Reason: sob)
fluticasone propionate 50 mcg/actuation [place],Suspension
2 spray INTRANASAL DAILY
budesonide-formoterol [Symbicort] 160-4.5 mcg/actuation Hfa Aerosol Inhaler
2 puff INHALATION R BID
insulin glargine [Lantus Solostar U-100 Insulin] 100 unit/mL (3 mL) Insulin Pen
8 unit SC BID
Incruse Ellipta 62.5 mcg/actuation Blister With Device
1 inh INHALATION R DAILY
levothyroxine [Synthroid] 75 mcg Tablet
75 mcg PO DAILY
omega 5-pfo-utt-fish oil [Fish Oil] 1,200 (144-216) mg Capsule
2 cap PO DAILY
benzonatate 100 mg Capsule
200 mg PO TIDPRN PRN (Reason: cough) Qty: 30 0RF
guaifenesin 600 mg Tablet Extended Release 12hr
1,200 mg PO Q12 Qty: 0 0RF
prednisone 10 mg Tablet
See Rx Instructions .ROUTE .COMPLEX Qty: 30 0RF
Rx Instructions:
Take By Mouth:
40 mg daily x3 days, 30 mg daily x3 days,
20 mg daily x3 days, 10 mg daily x3 days.
Referrals:
Arlyn Sheriff PA-C [Family Provider] -
Interventions
Interventions:
*Risk Screen - Suicide Last Done: 05/10/24 11:17
*General Assessment Last Done: 05/10/24 12:56
*Neglect/Abuse Screening Last Done: 05/10/24 11:17
ED- Cardiac Assessment Last Done: 05/10/24 12:56
ED- Pulmonary Assessment Last Done: 05/10/24 12:56
Discharge Date and Time
Print Language: SAUDI ARABIAN
[2024-05-10] MEDS: DUONEB 3 ML INH ×3 (15:25→19:46)
[2024-05-10] MEDS: ZITHROMAX 500 MG PO (15:25)
--- NOTE | 2024-05-10 15:57 | HPS.HSE ---
Family Physician
-
Family Physician: Arlyn Sheriff PA-C
Chief Complaint
-
Shortness of breath
History of Present Illness
69-year-old male with history of COPD, asthma, diabetes, hypothyroidism who lives independently with the family and rarely get a flareup of his COPD and asthma, presented to the hospital complaining of 2 days shortness of breath associated with dry
cough and chill and he said he had a temperature 99 at home, abnormal sick contacts or recent travel admit that the temperature outside of the humidity look like the culprit I got to him,
Deny headache or vision change, but have a dry cough but not since been in the ER. Denies any urinary or GI symptom,
In the ER given dose of the steroid and nebulizer overall feels much better but he still not fully back to the baseline. Admit he had only rescue inhaler and nebulizer and he rarely been using them.
He is awake, alert and oriented x 3 hold appropriate conversation, chest x-ray showed no acute abnormalities.
Medical History
Past Medical History
Past Medical History: Reports Other
Additional Past Medical History:
Past medical history reviewed:
Asthma-COPD
Diabetes
Hypothyroidism
Mood disorder
GERD
Social history: Lives independently with the family, no smoking alcohol use.
Family history: Positive hypertension and diabetes
Past Surgical History: Reports Other
Social History
Unable to obtain full social history at this time due to: Other
Family History
Family History: Other
Allergies / Home Medications
Allergies reflects when Allergies were last updated in [employer].
Home Medications with original date entered in [employer]
Allergy/Medication List:
Allergies
Allergy/AdvReac Type Severity Reaction Status Date / Time
grass pollen-perennial rye, Allergy Shortness Verified 05/10/24 11:18
standar of Breath
tree and shrub pollen Allergy PINE Verified 05/10/24 11:18
TREES-SHORTNESS
OF BREATH
Home Medications
paroxetine HCl 10 mg tablet 10 mg PO DAILY Mental Health 01/27/13
multivitamin with folic acid 400 mcg tablet (Tab-A-Grayson) 1 tab PO DAILY Supplement 11/10/18
montelukast 10 mg tablet 10 mg PO DAILY Lung/breathing issues 09/07/19
albuterol sulfate 90 mcg/actuation aerosol inhaler 2 puff inhalation R Q4HPRN PRN sob 11/08/23
budesonide 0.5 mg/2 mL suspension for nebulization 0.5 mg inhalation R BIDPRN PRN sob 11/08/23
budesonide-formoterol HFA 160 mcg-4.5 mcg/actuation aerosol inhaler (Symbicort) 2 puff inhalation R BID Lung/Breathing Issues 11/08/23
fluticasone propionate 50 mcg/actuation nasal spray,suspension 2 spray intranasal DAILY Allergies 11/08/23
insulin glargine 100 unit/mL (3 mL) subcutaneous pen (Lantus Solostar U-100 Insulin) 8 unit SC BID Diabetes 11/08/23
metformin 1,000 mg tablet 1,000 mg PO BID Diabetes 11/08/23
umeclidinium 62.5 mcg/actuation blister powder for inhalation (Incruse Ellipta) 1 inh inhalation R DAILY Lung/Breathing Issues 11/08/23
levothyroxine 75 mcg tablet (Synthroid) 75 mcg PO DAILY Thyroid 03/12/24
omega 9-vdp-cde-fish oil 1,200 mg (144 mg-216 mg) capsule (Fish Oil) 2 cap PO DAILY Supplement 03/12/24
ranitidine HCl 75 mg tablet 75 mg PO DAILY 05/10/24
Review of Systems
-
A 12 point ROS was completed and negative except as noted: Yes
Physical Exam
Vital Signs
Vital Signs
Temp Pulse Resp BP Pulse Ox
98.9 F 68 14 125/78 92
05/10/24 11:17 05/10/24 14:15 05/10/24 14:15 05/10/24 14:00 05/10/24 14:15
physical exam:
General: Awake, alert and oriented x3, not in distress and holds appropriate conversation.
HEENT: No active discharge, ecchymosis or bruising, moist lips, tongue and mucous membrane.
Eyes: No discharge or red conjunctiva, no nystagmus, pupils are reactive and equal
Neck:Supple, no JVD no bruit no goiter.
Respiratory: Normal AP contour and diameter, normal chest wall movement, normal respiratory effort, no respiratory distress,
Lungs: Diminished air entry bilaterally, bilateral wheezing but no rhonchi or rales or crackles
Heart: S1, S2 regular, normal rate, no added sound.
Gastrointestinal: Positive bowel sounds, soft, nontender, no guarding or rigidity or organomegaly
Musculoskeletal: , no chest wall abnormality or tenderness. All joints and extremities have good range of motion, no muscle tenderness or any joint swelling or tenderness.
Extremities: No pitting edema, good peripheral pulses, good range of motion
Skin: Warm and dry, no ulceration, normal color.
Neurological: Awake, alert and oriented x3, no facial droop, speech clear and comprehensive, good muscle tone, moves extremities freely
Psychiatric: Normal mood, normal thought and judgment, normal affect,
Physical Exam
General: Other
Laboratory Results
-
05/10/24 12:35
05/10/24 12:35
Chest x-ray: No acute cardiopulmonary abnormality
Data Reviewed
-
Diagnostic Radiology: Image Personally Visualized and interpreted and Discussed with Patient
Lab Data: Labs Reviewed by me and Discussed with Patient
Old Records: Reviewed
Impression/Plan
-
IMPRESSION:
69-year-old male with history of COPD and asthma, diabetes presents to the hospital completely completely been short of breath, likely secondary to combination of COPD and asthma exacerbation, likely by the hot and humid environment while other
causes may need to be considered, no evidence of pneumonia on chest x-ray
Acute on chronic COPD/asthma exacerbation
Shortness of breath
Diabetes mellitus
Hypothyroidism
GERD
PLAN:
Managed per COPD protocol
DuoNeb 4 times daily
Dexamethasone 6 mg every 8 hours could be down titrated as improved, elevated blood sugar may happen as discussed with the patient expressed understanding
IV fluid
Zithromax, will get an EKG to assess QT interval
Cough medication as needed
Tylenol as needed
Monitor vital sign
Keep O2 sat between 88 to 92%.
Recheck lab
Continue his Lantus 8 unit twice daily as well as metformin
If not improved then will consider pulmonary consult as discussed with the patient
Patient said he is not taking any scheduled respiratory medication like an inhaler and nebulizer only have rescue inhaler and nebulizer which she rarely uses.
All discussed with the patient in detail expressed understanding
CODE STATUS full code
DVT prophylaxis Lovenox
[2024-05-10] MEDS: LOVENOX SC (17:28)
[2024-05-10 17:43] LABS: Glucose - Point of Care 219 mg/dl (70-99)
[2024-05-10] MEDS: GLUCOPHAGE 1000 MG PO (17:45)
[2024-05-10] MEDS: NSS 1000 IV (17:45)
[2024-05-10] MEDS: NOVOLOG FLEXPEN-MODERATE RESISTANCE 3 UNITS SC (17:46)
--- NOTE | 2024-05-10 17:52 | PTCARENOTE ---
pt admitted from ED to room 414-02. pt ambulated from stretcher to scale, to bathroom then to bed. standy assist, slightly unsteady on feet. AAOX3. denies pain. frequent non productive cough. 94% on room air. resp therapist at bedside for breathing
treatment. pt updated on plan of care. admission questions completed. see worklist for nursing assessment.
[2024-05-10 20:51] LABS: Glucose - Point of Care 221 mg/dl (70-99)
[2024-05-10] MEDS: LANTUS 0.08 UNITS SC (20:55)
[2024-05-10] MEDS: DECADRON 6 MG IV (20:55)
[2024-05-11] MEDS: DUONEB 3 ML INH ×5 (02:51→19:34)
[2024-05-11] MEDS: DECADRON 6 MG IV ×2 (03:48→12:08)
[2024-05-11] MEDS: NSS 1000 IV (05:23)
[2024-05-11] MEDS: SYNTHROID 75 MCG PO (05:24)
--- NOTE | 2024-05-11 05:37 | PTCARENOTE ---
During [facility] shift [facility], pt's O2 dropped to 87-89% on RA. Pt denies SOB, difficulty breathing, dizziness, lightheadedness, and chest pain. Pt placed on 2L NC. O2 93%. Plan of care ongoing.
[2024-05-11 06:52] LABS: Glucose - Point of Care 169 mg/dl (70-99)
[2024-05-11 07:00] VITALS: BP 144/98
[2024-05-11 08:19] LABS: % Basophils 0.1 % (0-2); % Immature Granulocytes 0.9 % (0-0.5); % Lymphocytes 10.5 % (20.5-51.1); % Monocytes 1.8 % (1.7-9.3); % Neutrophils 86.7 % (42.2-75.2); Absolute Immature Granulocytes 0.1 10^3/uL (0-0.05); Absolute Monocytes 0.2 10^3/uL (0.1-0.6); Absolute Neutrophils 8.5 10^3/uL (1.4-6.5); Hematocrit 40.8 % (39.0-52.0); Hemoglobin 14.4 g/dL (13.0-18.0); Mean Corp Hgb Conc. 35.3 g/dL (33.0-37.0); Mean Corpuscular Hgb 32.1 pg (27.0-31.0); Mean Corpuscular Volume 90.9 fL (80.0-94.0); Mean Platelet Volume 9.4 fL (7.4-10.4); Nucleated Red Blood Cells % 0 % (-); Platelet Count 281 10^3/uL (130-400); Red Blood Cell Count 4.49 10^6/uL (4.70-6.10); Red Cell Dist. Width 13.4 % (11.5-14.5); White Blood Cell Count 9.8 10^3/uL (4.8-10.8)
[2024-05-11] MEDS: PEPCID 20 MG PO (08:36)
[2024-05-11] MEDS: GLUCOPHAGE 1000 MG PO ×2 (08:36→17:24)
[2024-05-11] MEDS: PAXIL 10 MG PO (08:36)
[2024-05-11] MEDS: LANTUS 0.08 UNITS SC ×2 (08:37→20:28)
[2024-05-11] MEDS: SINGULAIR 10 MG PO (08:38)
[2024-05-11] MEDS: NOVOLOG FLEXPEN-MODERATE RESISTANCE 1 UNITS SC (08:39)
[2024-05-11 09:06] LABS: Blood Urea Nitrogen 22 mg/dl (9-20); Calcium 9.6 mg/dl (8.4-10.2); Carbon Dioxide 23 mmol/L (22-30); Chloride 104 mmol/L (98-107); Estimated Creatinine Clearance 106 ml/min; Glucose 125 mg/dl (70-99); Potassium 4.4 mmol/L (3.5-5.1); Sodium 138 mmol/L (135-145); eGFR > 60.00
--- NOTE | 2024-05-11 09:14 | W.PN.HOSP.TC ---
Today's Communication/Plan
-
Transition to p.o. prednisone tomorrow
Wean oxygen
Discharge tomorrow
Assessment / Plan
Assessment / Plan
HPI: 69-year-old male with history of COPD and asthma, diabetes presents to the hospital completely completely been short of breath, likely secondary to combination of COPD and asthma exacerbation, likely by the hot and humid environment while other
causes may need to be considered, no evidence of pneumonia on chest x-ray
Acute on chronic COPD/asthma exacerbation
Acute hypoxic respiratory insufficiency
Shortness of breath
Diabetes mellitus
Hypothyroidism
GERD
PLAN:
Managed per COPD protocol
DuoNeb 4 times daily
Change IV dexamethasone to prednisone
Zithromax, Wean oxygen
Continue his Lantus 8 unit twice daily as well as metformin
Patient said he is not taking any scheduled respiratory medication like an inhaler and nebulizer only have rescue inhaler and nebulizer which he rarely uses.
All discussed with the patient in detail expressed understanding
CODE STATUS full code
DVT prophylaxis Lovenox
Total time spent to see the patient on the floor, examine the patient, review data and lab results, discuss treatment plan with patient, nursing staff around 35 minutes.
Physical Exam
General: No acute distress
HEENT: Normocephalic, Atraumatic, EOMI, MMM
Respiratory: Clear to Auscultation bilaterally
Cardiac: Normal S1/S2, Regular Rate and Rhythm
GI: Soft, Nontender, Nondistended, Normal Bowel Sounds
Extremities: No Clubbing, Cyanosis, or Edema
Neuro: Nonfocal/Grossly Intact
Psych: Calm, Cooperative
Derm: No Visible lesions
Anticipated Discharge: Within 24 hours
Subjective/Interval History
-
Date of Service: May 11, 2024
Patient reports breathing has improved. Coughing also improved. No fever, no vomiting.
Objective Data
-
Labs:
Laboratory Results
05/11/24
07:22
WBC 9.8
Hgb 14.4
Hct 40.8
Plt Count 281
Sodium 138
Potassium 4.4
Chloride 104
Carbon Dioxide 23
BUN 22 H
Creatinine 0.7
Glucose 125 H
Calcium 9.6
Vital Signs:
Vital Signs
Temp Pulse Resp BP Pulse Ox
98.0 F 76 18 144/98 95
05/11/24 07:00 05/11/24 07:38 05/11/24 07:38 05/11/24 07:00 05/11/24 07:38
I&O
05/10/24 05/11/24 05/12/24
06:59 06:59 06:59
Intake Total 1440 / 1440
Balance 1440 / 1440
[2024-05-11 11:49] LABS: Glucose - Point of Care 116 mg/dl (70-99)
[2024-05-11] MEDS: NOVOLOG FLEXPEN-MODERATE RESISTANCE SC (11:57)
[2024-05-11] MEDS: ZITHROMAX INFUSION 250 IV (13:13)
[2024-05-11 15:00] VITALS: BP 132/80
--- NOTE | 2024-05-11 16:04 | CM ---
Patient seen at bedside, Patient states that nothing has changed since his recent hospitalization. Patient confirmed that he lives with his in a 2 story home. Patient stated that he does not have any DME at home. Patient stated that he uses
the [facility] and the [facility] in [facility]. Patient stated that he is independent of ADL's and IADL's. Patient plan is to go home with patient . CM will continue to follow for discharge planning needs.
Plan; home with no needs;
[2024-05-11 16:41] LABS: Glucose - Point of Care 163 mg/dl (70-99)
[2024-05-11] MEDS: NOVOLOG FLEXPEN-MODERATE RESISTANCE 3 UNITS SC (17:24)
[2024-05-11] MEDS: LOVENOX 40 MG SC (17:24)
[2024-05-11 20:24] LABS: Glucose - Point of Care 191 mg/dl (70-99)
[2024-05-11 23:15] VITALS: BP 123/65
[2024-05-12] MEDS: DUONEB 3 ML INH ×3 (01:11→11:00)
[2024-05-12] MEDS: SYNTHROID 75 MCG PO (06:22)
[2024-05-12 07:04] LABS: Glucose - Point of Care 105 mg/dl (70-99)
[2024-05-12 07:51] VITALS: BP 144/84
--- NOTE | 2024-05-12 08:44 | W.PN.HOSP.TC ---
Today's Communication/Plan
-
Discharge today
Assessment / Plan
Assessment / Plan
HPI: 69-year-old male with history of COPD and asthma, diabetes presents to the hospital completely completely been short of breath, likely secondary to combination of COPD and asthma exacerbation, likely by the hot and humid environment while other
causes may need to be considered, no evidence of pneumonia on chest x-ray
Acute on chronic COPD/asthma exacerbation
Acute hypoxic respiratory insufficiency
Shortness of breath
Diabetes mellitus
Hypothyroidism
GERD
PLAN:
Managed per COPD protocol
DuoNeb 4 times daily
Resolving status post IV dexamethasone, will discharge on prednisone for 5 more days, no taper needed
He has received 3 days of azithromycin
Medically stable for discharge, follow-up with PCP in 1 week, pulmonology in 2-3 weeks (known to Dr. Perkins)
Continue his Lantus 8 unit twice daily as well as metformin
All discussed with the patient in detail expressed understanding
CODE STATUS full code
DVT prophylaxis Lovenox
Physical Exam
General: No acute distress
HEENT: Normocephalic, Atraumatic, EOMI, MMM
Respiratory: Clear to Auscultation bilaterally
Cardiac: Normal S1/S2, Regular Rate and Rhythm
GI: Soft, Nontender, Nondistended, Normal Bowel Sounds
Extremities: No Clubbing, Cyanosis, or Edema
Neuro: Nonfocal/Grossly Intact
Psych: Calm, Cooperative
Derm: No Visible lesions
Anticipated Discharge: Today
Subjective/Interval History
-
Date of Service: May 12, 2024
Shortness of breath resolved. He ambulated without any breathing issues. Cough improving. No fever, no vomiting.
Objective Data
-
Vital Signs:
Vital Signs
Temp Pulse Resp BP Pulse Ox
97.4 F 57 18 144/84 94
05/12/24 07:51 05/12/24 07:51 05/12/24 07:51 05/12/24 07:51 05/12/24 07:51
I&O
05/11/24 05/12/24 05/13/24
06:59 06:59 06:59
Intake Total 1440 / 1440 1989
Balance 1440 / 1440 1989
[2024-05-12] MEDS: NOVOLOG FLEXPEN-MODERATE RESISTANCE SC ×2 (08:54→11:31)
[2024-05-12] MEDS: LANTUS 0.08 UNITS SC (09:02)
[2024-05-12] MEDS: SINGULAIR 10 MG PO (09:03)
[2024-05-12] MEDS: PEPCID 20 MG PO (09:03)
[2024-05-12] MEDS: PAXIL 10 MG PO (09:03)
[2024-05-12] MEDS: ZITHROMAX 500 MG PO (09:03)
[2024-05-12] MEDS: DELTASONE 40 MG PO (09:03)
[2024-05-12] MEDS: GLUCOPHAGE 1000 MG PO (09:04)
--- NOTE | 2024-05-12 11:13 | W.DCSUMMARY ---
Discharge Summary
Discharge Data
Date of Admission: 05/10/24
Date of Discharge: 05/12/24
-
Pending Results: No
Hospital Course
Discharge diagnosis:
Acute asthma exacerbation
Acute hypoxic respiratory insufficiency
Type 2 diabetes
Hypothyroidism
Gastroesophageal reflux disease
CXR:
No acute cardiopulmonary process.
Hospital course:
69-year-old male with a past medical history of asthma, type 2 diabetes, gastroesophageal reflux disease, and hypothyroidism was admitted for acute asthma exacerbation after being outside in the heat/humidity. Chest x-ray was negative, patient was
COVID-negative.
Patient was treated with IV steroids, bronchodilators. He also had acute hypoxic respiratory insufficiency, requiring 2 L of oxygen.
After several days, he was successfully weaned off of oxygen. His shortness of breath resolved. He is medically stable for discharge on prednisone to complete a 7-day course, no taper needed. He can resume his home Symbicort, budesonide, and
other inhalers. He is known to pulm/Dr. Prekins, and can follow-up with him in 2-3 weeks.
Disposition: Home self-care
Discharge planning: Required 38 minutes
Discharge Plan
-
Patient Disposition: Home (Routine Discharge)
Discharge Diagnosis/Procedures: Asthma/COPD flare, transient hypoxia
Condition: Good
Diet: Regular
Activity: As tolerated
Activity Restrictions/Additional Instructions:
Please follow-up with your primary care doctor in 1 week, and pulmonology in 2-3 weeks. Call their office for appointments.
Referrals:
Nhi Perkins MD [Active] - in two to three weeks
Arlyn Sheriff PA-C [Family Provider] - in one week
Prescriptions:
New
prednisone 20 mg tablet
40 mg PO DAILY 5 Days Qty: 10 0RF
Continued
paroxetine HCl 10 MG tablet
10 mg PO DAILY
multivitamin with folic acid [Tab-A-Grayson] 1 TABLET tablet
1 tab PO DAILY
montelukast 10 MG tablet
10 mg PO DAILY
metformin 1,000 mg Tablet
1,000 mg PO BID
budesonide 0.5 mg/2 mL Suspension For Nebulization
0.5 mg INHALATION R BIDPRN PRN (Reason: sob)
albuterol sulfate 90 mcg/actuation Hfa Aerosol Inhaler
2 puff INHALATION R Q4HPRN PRN (Reason: sob)
fluticasone propionate 50 mcg/actuation [place],Suspension
2 spray INTRANASAL DAILY
budesonide-formoterol [Symbicort] 160-4.5 mcg/actuation Hfa Aerosol Inhaler
2 puff INHALATION R BID
Patient Comments:
05/10/24- patient buys from [facility]
insulin glargine [Lantus Solostar U-100 Insulin] 100 unit/mL (3 mL) Insulin Pen
8 unit SC BID
Incruse Ellipta 62.5 mcg/actuation Blister With Device
1 inh INHALATION R DAILY
levothyroxine [Synthroid] 75 mcg Tablet
75 mcg PO DAILY
omega 0-qkt-jml-fish oil [Fish Oil] 1,200 (144-216) mg Capsule
2 cap PO DAILY
ranitidine HCl 75 mg Tablet
75 mg PO DAILY
Discharge Orders:
Discharge Patient (As Directed); Ordered 05/12/24
Ordered By: Yassine Abebe
Discharge Date and Time
Discharge Date/Time: 05/12/24 13:31
Print Language: MOHAWK
[2024-05-12 11:29] LABS: Glucose - Point of Care 129 mg/dl (70-99)
--- NOTE | 2024-05-12 13:07 | CM ---
Patient seen at bedside. Patient stated that he was planning to drive himself home and had no other needs. IMM completed yesterday and on chart. CM will continue to follow for discharge planning needs.
Plan;home with no needs.
== END 2024-05-12 13:31 | disposition home or self-care (01) | DRG 202 ==
LOC: 4 WEST ACU 16:18
PROVIDERS: Physician Assistant; ADMITTING PHYSICIAN Internal Medicine; ATTENDING PHYSICIAN Family Medicine; EMERGENCY PHYSICIAN Emergency Medicine; FAMILY PHYSICIAN Student in an Organized Health Care Education/Training Program
DX: J45.901 Unspecified asthma with (acute) exacerbation (principal); J44.1 Chronic obstructive pulmonary disease with (acute) exacerbation; E11.9 Type 2 diabetes mellitus without complications; E03.9 Hypothyroidism, unspecified; K21.9 Gastro-esophageal reflux disease without esophagitis; F39 Unspecified mood [affective] disorder; R06.89 Other abnormalities of breathing; R09.02 Hypoxemia; Z79.4 Long term (current) use of insulin; Z79.84 Long term (current) use of oral hypoglycemic drugs; Z79.890 Hormone replacement therapy; Z11.52 Encounter for screening for COVID-19; Z77.22 Contact with and (suspected) exposure to environmental tobacco smoke (acute) (chronic)
CPT/HCPCS: 71046; 80048; 82962; 83036; 85025; 87811; 93005; 94640; 96374; 99285

== ENCOUNTER 2024-06-29 15:21 | Inpatient (IN) | payer MEDICARE, OTHER, SELFPAY ==
[2024-06-29] VITALS (8 sets, daily range): BP systolic 99–169; BP diastolic 63–99; BMI 27.8; BMI 26.5
--- NOTE | 2024-06-29 11:27 | EDRN ---
Dr. Abraham in room w/pt at this time
--- NOTE | 2024-06-29 11:30 | ED.GENMED ---
History of Present Illness
General
Chief Complaint: Breathing Problem
Source: patient
Exam Limitations: none
Time Seen by Provider: 06/29/24 11:23
Nursing documentation reviewed up to this point in time: agreed with
History of Present Illness
History of Present Illness:
Patient with history of COPD, presents to ED secondary to worsening cough with shortness of breath despite using in his inhaler at home for the past 2 days. Patient was admitted to the hospital 2 months ago for similar complaint. Denies chest
pain. Denies fever or chills. Denies nausea, vomiting, or diarrhea. Denies rash. And headache. Denies sick contact. Denie recent travel.
Past History
Past History
ED Past Medical History: Asthma, COPD, GERD and Other (Sinusitis)
ED Past Surgical History: Other (Sinus surgery)
Patient has exhibited threatening behavior?: No
PSI?: No
Social History
Tobacco: 2nd hand smoke exposure (As a child)
Alcohol: None
Drug: None
Personal:
Living: with family
Employment: Employed
Family History
Family History: Other (Noncontributory)
Review of Systems
Review of Systems
Allergies reviewed?: Yes
All Other Systems: ROS reviewed and negative except as documented in HPI and ROS
Constitutional: Reports no symptoms; Denies fever
EENT: Reports no symptoms
Respiratory: Reports cough and trouble breathing
Cardiac: Reports no symptoms
ABD/GI: Reports no symptoms
Musculoskeletal: Reports no symptoms
Skin: Reports no symptoms
Neurological: Reports no symptoms
Phy Exam
Physical Exam
Physical Exam:
Physical Exam
General: mild respiratory distress, not acutely ill. afebrile
Head: nc/at. eomi
Neck: supple. no meningeal signs.
Heart: s1/s2 regular rate and rhythm, no murmur. equal radial pulses.
Lungs: mild respiratory distress. diffuse wheezing bilaterally, with mild retraction
Abdomen: normal bowel sounds. not tender.
Neuro: alert and oriented. no focal neurological deficits
Skin: no rash
Psychiatric: well kept. interactive and cooperative
Extremities: no edema. no calf tenderness.
Scores
Heart Failure Risk
Heart Failure Risk Score: Not Applicable
Course
Orders/Labs/Results
Orders:
Orders
06/29/24 Breakfast
1600 calorie (13 carb) Diabetic
At Your Request: Full Participation
06/29/24 11:28
Albuterol Sulfate [Ventolin Nebules] 7.5 mg INH R NOW STA
Ipratropium Nebs [Atrovent Nebules] 1 mg INH R NOW STA
Prednisone [Deltasone] 50 mg PO NOW STA
06/29/24 11:29
Prednisone [Deltasone] 50 mg .ROUTE .STK-MED ONE
CR Chest Portable - 1 View Urgent
Comment:
Reason For Exam: cough/sob
Reason Study Needs to be Portable: Patient Unstable
06/29/24 11:32
COVID-19 Antigen Urgent
Source: Nasal Swab
06/29/24 13:51
Benzonatate [Tessalon Perles] 200 mg PO NOW STA
06/29/24 14:06
Complete Blood Count/No Diff Urgent
Comprehensive Metabolic Panel Urgent
Magnesium Urgent
06/29/24 14:46
Admit/Transfer Patient As Directed
Co-Sign Provider:
Level of Care: Inpatient admission
Assign to:: Medical/Surgical
Physician / Group: doe
Diagnosis: asthma exacerbation
Reason for Hospitalization: asthma exacerbation
Expected length of stay greater than two midnights?: Yes
ELOS- Estimated Length of Stay in days: 3
I certify the patient meets the requirements for IP care: Yes
06/29/24 14:47
PRN Pain Medication Management As Directed
May give lesser potent ordered pain med per pt: Yes
preference::
Protocol:: Medication orders for pain may be administered in a
manner that supports deferring to patient preference
when the pt is:
- Requesting an ordered lesser potent pain medication.
Least to most potent pain medications are defined
as: acetaminophen < NSAID < tramadol < opioids
(morphine, oxycodone, hydromorphone).
- Requesting a lesser dose of the same medication IF
ORDERED.
- Requesting a less intrusive route of administration
if both routes are prescribed by the provider (PO <
IV).
06/29/24 14:48
Code Status As Directed
Resuscitation Status: Full Code
06/29/24 15:04
Doxycycline Hyclate [Vibramycin] 100 mg 0.9% Sodium Chloride 250 ml [Nss] 250 ml IV NOW
06/29/24 16:34
Influenza A+B Rapid Molecular Routine
STONEY Source: Nasal Swab
Specimen Description:
06/29/24 17:47
Acetaminophen [Tylenol] 650 mg PO Q4HPRN PRN
Dextrose 50%-Water [Dextrose 50% Syringe] 12.5 grams IV [id number] PRN
Glucagon [GlucaGen] 1 mg IM PRN PRN
Insulin Aspart Corrective Low [Novolog Flexpen-Low Resistance] See Protocol SC AC
Ipratropium/Albuterol Sulfate [Duoneb] 3 ml INH R Q4HPRN PRN
Ipratropium/Albuterol Sulfate [Duoneb] 3 ml INH R QID
06/29/24 17:47
PULMONARY CONSULT Routine
Consulting Provider: Silverio Boudreaux
Was physician already notified: Yes
Respiratory Culture/Gram Stain Routine
STONEY Source: Sputum
Specimen Description:
Activity As Directed
Activity Level: As Tolerated
Bedside Glucose Monitoring As Directed
Frequency: AC&HS
Additional Instructions:: Change to q6h if pt on TPN, tube feeding or not eating
Intake/ Output As Directed
Frequency: Per unit guidelines
Vital Signs As Directed
Frequency: Per unit guidelines
Copd Education [RESP] Routine
DX Deep Vein Thrombosis Video Routine
06/29/24 18:00
Enoxaparin Sodium [Lovenox] 40 mg SC QPM
06/29/24 20:00
Budesonide/Formoterol 160/4.5 [Symbicort 160/4.5 Mcg Inhaler] 2 puff INH R BID
Dexamethasone Sod Phosphate [Decadron] 4 mg IV Q8H
Guaifenesin [Mucinex] 600 mg PO Q12
METFORMIN HCl [Glucophage] 1,000 mg PO BID
insulin glargine [Lantus Solostar U-100 Insulin] 8 unit SC BID
06/30/24 04:00
Doxycycline Hyclate [Vibramycin] 100 mg 0.9% Sodium Chloride 250 ml [Nss] 250 ml IV Q12H
06/30/24 06:00
Levothyroxine [Synthroid] 75 mcg PO DAILY@0600
06/30/24 06:24
Basic Metabolic Panel IN AM
Complete Blood Count/With Diff IN AM
Glycohemoglobin (HgbA1c) IN AM
06/30/24 08:00
Montelukast Sodium [Singulair] 10 mg PO DAILY
Paroxetine [Paxil] 10 mg PO DAILY
Tiotropium [place] 2.5 Mcg [Spiriva Respimat 2.5 Mcg] 2 puff INH R DAILY
fluticasone propionate 2 spray NASAL DAILY
07/01/24 06:00
Basic Metabolic Panel IN AM
Complete Blood Count/With Diff IN AM
07/02/24 06:00
Basic Metabolic Panel IN AM
Complete Blood Count/With Diff IN AM
07/03/24 06:00
Basic Metabolic Panel IN AM
Complete Blood Count/With Diff IN AM
07/04/24 06:00
Basic Metabolic Panel IN AM
Complete Blood Count/With Diff IN AM
Abnormal Lab Results
06/29/24
14:06
MCH 31.7 H pg
(27.0-31.0)
Glucose 148 H mg/dl
(70-99)
06/29/24 14:06
06/29/24 14:06
Vital Signs
Initial and Last Documented VS:
Initial Vital Signs
Temp Pulse Resp BP Pulse Ox
97.7 F 89 20 155/98 95
06/29/24 10:43 06/29/24 10:43 06/29/24 10:43 06/29/24 10:43 06/29/24 10:43
Last Documented Vital Signs
Temp Pulse Resp BP Pulse Ox
97.3 F 61 16 137/85 97
06/30/24 07:20 06/30/24 07:26 06/30/24 07:26 06/30/24 07:20 06/30/24 07:26
MDM/Problems Addressed
MDM/Problems Addressed:
Patient with persistent wheezing and shortness of breath, although mildly improved after 1 hour nebulizer treatment. History and exam consistent with likely recurrent COPD exacerbation. No evidence of pneumonia noted on chest x-ray. Patient will
be admitted for further evaluation and treatment.
*Critical Care Note
Total Time (30-74mins, 75-104mins- exclusive of procedures): Not Applicable
ED Attending Note
-
Portions of this chart may have been created with voice recognition software.� Occasional wrong word or��sound alike� substitutions may have occurred due to the inherent limitations of voice recognition software.
Discharge Plan
Departure
Patient Disposition: Admit
Date of Disposition: 06/29/24
Time of Disposition: 14:29
Admit to: Telemetry
Presentation/result/management discussed w/ accepting MD/DO: Hospitalist
Discharge Problem:
COPD exacerbation
Interventions
Interventions:
*Risk Screen - Suicide Last Done: 06/29/24 11:34
*General Assessment Last Done: 06/29/24 11:34
*Neglect/Abuse Screening Last Done: 06/29/24 11:34
ED- Fall Risk Assessment Last Done: 06/29/24 11:34
*ED COVID-19 Vaccine History Last Done: 06/29/24 11:34
*Nursing Disposition Last Done: 06/29/24 17:45
ED- Cardiac Assessment Last Done: 06/29/24 11:38
ED- Pulmonary Assessment Last Done: 06/29/24 14:05
Discharge Date and Time
Discharge Date/Time: 06/29/24 17:45
[2024-06-29] MEDS: DELTASONE 50 MG PO (11:33)
--- NOTE | 2024-06-29 11:56 | EDRN ---
Portable CXR being done at stretcher side at this time.
[2024-06-29 12:00] LABS: COVID-19 Antigen Negative (Negative)
[2024-06-29] MEDS: VENTOLIN NEBULES 7.5 MG INH (12:12)
[2024-06-29] MEDS: ATROVENT NEBULES 1 MG INH (12:12)
--- NOTE | 2024-06-29 13:08 | EDRN ---
Dr. Abraham in to see pt at this time.
--- NOTE | 2024-06-29 13:09 | EDRN ---
Pt is still getting neb at this time.
--- NOTE | 2024-06-29 13:12 | EDRN ---
Pt asking about eating though neb still in progress at this time.
[2024-06-29 14:13] LABS: Hematocrit 45.1 % (39.0-52.0); Hemoglobin 15.7 g/dL (13.0-18.0); Mean Corp Hgb Conc. 34.8 g/dL (33.0-37.0); Mean Corpuscular Hgb 31.7 pg (27.0-31.0); Mean Corpuscular Volume 90.9 fL (80.0-94.0); Mean Platelet Volume 9.1 fL (7.4-10.4); Platelet Count 235 10^3/uL (130-400); Red Blood Cell Count 4.96 10^6/uL (4.70-6.10); Red Cell Dist. Width 13.1 % (11.5-14.5); White Blood Cell Count 8.9 10^3/uL (4.8-10.8)
[2024-06-29] MEDS: TESSALON PERLES 200 MG PO (14:23)
--- NOTE | 2024-06-29 14:31 | HPS.HSE ---
Addendum entered and electronically signed by Ahsan Magdaleno MD 06/29/24 15:14:
Seen and examined by me independently in collaboration with the nurse practitioner Rubin.
Past medical history/social history/medication/allergies reviewed.
Lab data and imaging data reviewed.
Patient presents with cough which is productive of brown phlegm with associated shortness of breath and wheezing. No obvious trigger.
He was here last month with asthma flare. He states he had 6 flares of asthma this year. He has been asthmatic for 20 years. 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
Hemodynamically stable. Not hypoxic on room air.
Patient with extensive bilateral expiratory wheeze and paroxysmal cough in the ER.
Chest x-ray shows no evidence of pneumonia.
Acute asthma flare with clinical symptoms of productive cough cannot rule out acute bronchitis. Admit to hospital. Start on steroids IV, empirical doxycycline, and regular nebulizers. In view of recurrent flares consult pulmonary.
Patient without any significant cardiac history. No clinical evidence of heart failure-no JVD, lower extremity edema or chest x-ray evidence of pulmonary edema. No obvious murmur heard.
Full code.
Original Note:
Family Physician
-
Family Physician: Jean Claude Perez
Chief Complaint
-
sob
cough
History of Present Illness
69 year old with past medical history for asthma, COPD, GERD presented to us with brownish sputum , short of breath which is worse with exertion as well as orthopnea for past 2 days. Patient complained of wheezing. He used his home nebulizer with
no relief in his symptoms. denied fever, chills, chest pain. Patient denied headache, dizziness, syncopal episode. Patient denied abdominal pain, nausea, vomiting, diarrhea. Patient denied dysuria hematuria.
In ER patient received albuterol, Tessalon, prednisone. Admitting for further management
Medical History
Past Medical History
Past Medical History: Reports Other
Additional Past Medical History:
asthma
hypothyroidism
type 2 DM
GERD
HLD
COPD
pulmonary HTN
Past Surgical History: Reports Other
Additional Past Surgical History:
Sinus surgery
Social History
Tobacco: Non-smoker
Alcohol: Occasional
Drug: None
Living: With Family
Family History
Family History: Not pertinent
Allergies / Home Medications
Allergies reflects when Allergies were last updated in [facility].
Home Medications with original date entered in [facility]
Allergy/Medication List:
Allergies
Allergy/AdvReac Type Severity Reaction Status Date / Time
grass pollen-perennial rye, Allergy Shortness Verified 06/29/24 10:45
standar of Breath
tree and shrub pollen Allergy PINE Verified 06/29/24 10:45
TREES-SHORTNESS
OF BREATH
Home Medications
paroxetine HCl 10 mg tablet 10 mg PO DAILY Mental Health 01/27/13
multivitamin with folic acid 400 mcg tablet (Tab-A-Grayson) 1 tab PO DAILY Supplement 11/10/18
montelukast 10 mg tablet 10 mg PO DAILY Lung/breathing issues 09/07/19
albuterol sulfate 90 mcg/actuation aerosol inhaler 2 puff inhalation R Q4HPRN PRN sob 11/08/23
budesonide-formoterol HFA 160 mcg-4.5 mcg/actuation aerosol inhaler (Symbicort) 2 puff inhalation R BID Lung/Breathing Issues 11/08/23
fluticasone propionate 50 mcg/actuation nasal spray,suspension 2 spray intranasal DAILY Allergies 11/08/23
insulin glargine 100 unit/mL (3 mL) subcutaneous pen (Lantus Solostar U-100 Insulin) 8 unit SC BID Diabetes 11/08/23
metformin 1,000 mg tablet 1,000 mg PO BID Diabetes 11/08/23
umeclidinium 62.5 mcg/actuation blister powder for inhalation (Incruse Ellipta) 1 inh inhalation R DAILY Lung/Breathing Issues 11/08/23
levothyroxine 75 mcg tablet (Synthroid) 75 mcg PO DAILY Thyroid 03/12/24
omega 5-ibt-ims-fish oil 1,200 mg (144 mg-216 mg) capsule (Fish Oil) 2 cap PO DAILY Supplement 03/12/24
Review of Systems
-
Constitutional: Reports No Symptoms
EENT: Reports No Symptoms
Respiratory: Reports Cough and Trouble Breathing
Cardiac: Reports No Symptoms
Abdomen/GI: Reports No Symptoms
: Reports No Symptoms
Musculoskeletal: Reports No Symptoms
Skin: Reports No Symptoms
Neurological: Reports No Symptoms
Endocrine: Reports No Symptoms
Hematologic/Lymphatic: Reports No Symptoms
Psych: Reports No Symptoms
Physical Exam
Vital Signs
Vital Signs
Temp Pulse Resp BP Pulse Ox
97.7 F 65 22 143/87 94
06/29/24 10:43 06/29/24 14:05 06/29/24 14:05 06/29/24 14:05 06/29/24 14:05
Physical Exam
General: Well Developed, Well Nourished and No Apparent Distress
HEENT: NormoCephalic, Moist mucous membranes and Atraumatic
Respiratory: Wheezes
Cardiac: S1/S2 and Regular Rhythm; No Murmur or Rub
GI: Soft, Non Tender, Non Distended and Normal Bowel Sounds; No Organomegaly
Rectal: Deferred by Provider
Musculoskeletal: No Clubbing, No Cyanosis and No Edema
Skin: No Rash
Neuro: AO x 3 and Nonfocal/grossly intact
Psych: Calm
Laboratory Results
-
06/29/24 14:06
Data Reviewed
-
Diagnostic Radiology: Report Reviewed by me
Lab Data: Labs Reviewed by me
Impression/Plan
-
#COPD/asthma exacerbation
-COVID negative
-chest x ray with No radiographic evidence for pneumonia, pleural effusion, or acute pulmonary edema.Mild bilateral lung hyperinflation.
-nebs continued
-Decadron 4mg iv q8 h
-Singulair continued
-IV doxycycline
-Tessalon prn for cough
# Hypothyroidism
-Levothyroxine continued
# Type 2 diabetes
-Lantus 8 units twice a day continued
-Sliding scale
-Carb controlled diet
-Metformin continued
# Anxiety
-Paxil continued
# DVT prophylaxis
-Lovenox subcu
# CODE STATUS
-Full code
--- NOTE | 2024-06-29 14:40 | EDRN ---
Rubin Noyola [employer] was in to see pt at this time.
[2024-06-29 14:46] LABS: ALT (SGPT) 24 U/L (0-50); AST (SGOT) 30 U/L (17-59); Albumin 4.3 g/dl (3.5-5.0); Alkaline Phosphatase 87 U/L (38-126); Blood Urea Nitrogen 19 mg/dl (9-20); Calcium 9.7 mg/dl (8.4-10.2); Carbon Dioxide 29 mmol/L (22-30); Chloride 103 mmol/L (98-107); Estimated Creatinine Clearance 93 ml/min; Glucose 148 mg/dl (70-99); Magnesium 1.9 mg/dl (1.6-2.3); Potassium 4.6 mmol/L (3.5-5.1); Sodium 139 mmol/L (135-145); Total Bilirubin 0.5 mg/dl (0.2-1.3); Total Protein 6.6 g/dl (6.3-8.2); eGFR > 60.00
--- NOTE | 2024-06-29 15:10 | EDRN ---
Pt administered a boxed lunch at this time.
--- NOTE | 2024-06-29 15:19 | EDRN ---
Dr. Magdaleno in to see pt at this time.
[2024-06-29] MEDS: VIBRAMYCIN 260 MG IV (15:38)
--- NOTE | 2024-06-29 16:50 | EDRN ---
Awaiting flu test to send No Delay Report at this time. If postitive pt will need a private room.
[2024-06-29 17:56] LABS: Glucose - Point of Care 193 mg/dl (70-99)
[2024-06-29] MEDS: DUONEB 3 ML INH ×2 (18:05→19:22)
--- NOTE | 2024-06-29 18:06 | CM ---
CM reviewed patient's chart. Spoke with patient at bedside. CM introduced self and role.
PCP: [facility].
Pharmacy: [facility]
Living situation: Patient lives with her his . He lives in a multi-level home. 2 steps to enter. He has a son for support.
Finances: Patient denies any social insecurities. He is able to afford her housing, clothing, medications, food, utilities and transportation. 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
DME/Ambulation: Patient ambulates independently. He owns a walker, cane and wheelchair. They were utilized by his , who just fought endometrial cancer.
Transportation: Patient drove himself to the hospital.
Agreeable to home health care?: Yes, if needed.
ANTICIPATED DISCHARGE DISPOSITION:
Home with , when medically discharged.
CM will continue to follow case and available for further assistance.
[2024-06-29] MEDS: NOVOLOG FLEXPEN-LOW RESISTANCE 1 UNITS SC (19:14)
[2024-06-29] MEDS: SYMBICORT 160/4.5 MCG INHALER 2 PUFF INH (19:22)
[2024-06-29] MEDS: GLUCOPHAGE 1000 MG PO (19:59)
[2024-06-29] MEDS: MUCINEX 600 MG PO (20:00)
[2024-06-29] MEDS: DECADRON 4 MG IV (20:00)
[2024-06-29 21:57] LABS: Glucose - Point of Care 275 mg/dl (70-99)
[2024-06-29] MEDS: LANTUS 0.08 UNITS SC (22:01)
[2024-06-30] MEDS: VIBRAMYCIN 260 MG IV (05:03)
[2024-06-30] MEDS: DECADRON 4 MG IV ×3 (05:04→19:59)
[2024-06-30] MEDS: SYNTHROID 75 MCG PO (05:17)
[2024-06-30 07:18] LABS: Glucose - Point of Care 137 mg/dl (70-99)
[2024-06-30] MEDS: SYMBICORT 160/4.5 MCG INHALER 2 PUFF INH ×2 (07:18→19:30)
[2024-06-30] MEDS: DUONEB 3 ML INH ×4 (07:18→19:30)
[2024-06-30 07:20] VITALS: BP 137/85
[2024-06-30] MEDS: NOVOLOG FLEXPEN-LOW RESISTANCE SC ×3 (07:33→17:08)
[2024-06-30 08:19] LABS: Blood Urea Nitrogen 25 mg/dl (9-20); Calcium 9.7 mg/dl (8.4-10.2); Carbon Dioxide 27 mmol/L (22-30); Chloride 101 mmol/L (98-107); Estimated Creatinine Clearance 93 ml/min; Glucose 128 mg/dl (70-99); Potassium 4.8 mmol/L (3.5-5.1); Sodium 141 mmol/L (135-145); eGFR > 60.00
[2024-06-30 08:23] LABS: % Basophils 0.2 % (0-2); % Immature Granulocytes 0.6 % (0-0.5); % Lymphocytes 11.4 % (20.5-51.1); % Monocytes 5.4 % (1.7-9.3); % Neutrophils 82.4 % (42.2-75.2); Absolute Immature Granulocytes 0.1 10^3/uL (0-0.05); Absolute Lymphocytes 1.2 10^3/uL (1.2-3.4); Absolute Monocytes 0.6 10^3/uL (0.1-0.6); Hematocrit 41.9 % (39.0-52.0); Hemoglobin 14.4 g/dL (13.0-18.0); Mean Corp Hgb Conc. 34.4 g/dL (33.0-37.0); Mean Corpuscular Hgb 31.2 pg (27.0-31.0); Mean Corpuscular Volume 90.9 fL (80.0-94.0); Mean Platelet Volume 9.5 fL (7.4-10.4); Nucleated Red Blood Cells % 0 % (-); Platelet Count 254 10^3/uL (130-400); Red Blood Cell Count 4.61 10^6/uL (4.70-6.10); Red Cell Dist. Width 13.2 % (11.5-14.5); White Blood Cell Count 10.9 10^3/uL (4.8-10.8)
--- NOTE | 2024-06-30 09:19 | CON.PUL ---
Consultation
Consultation Request
Date/Time Consultation Requested: 06/29/2024 - 1746
Date/Time Consultation Performed: 06/30/2024917
Requesting Provider: LEYLA Peters
Performing Provider: Lewis Omalley MD
Reason for Consultation: Asthma/COPD exacerbation
Medical History
-
Chief Complaint: Cough/wheeze
History of Present Illness:
69-year-old male with a past medical history of moderate persistent asthma on Symbicort, DM type II, chronic sinusitis, GERD, history of elevated eosinophilic counts, pulmonary hypertension and hypothyroidism who presents with coughing + wheezing.
Patient known to our office with last visit on 03/25/2024 with LEYLA Pizano. He is continued on Symbicort 160mcg, and biologic therapy has been reviewed given history of multiple hospital stays for asthma exacerbations however patient
wanted to hold off. In the ER patient was afebrile to 97.7 �F, pulse rate 89, breathing at 20%, BP 155/98 and saturating 95% on room air. Labs showed normal WBC at 8.9, Hb 15.7, glucose 148, and COVID-19 antigen + FluA/B all negative. CXR showed
no acute cardiopulmonary process. He was given albuterol, ipratropium, 50 mg prednisone and Tessalon Perles and admitted to the hospitalist service with pulmonary consulted for additional recommendations.
Of note, patient's last spirometry was on 03/25/2024 showing moderate COPD with post-BD FEV1: 66% / 2.12 L, and also mild restriction with post-BD FVC: 73% / 3.22 L. Patient's last PFT was in February 2023 showing moderate COPD (post�BD FEV1: 77% / 2.54
L), with no evidence of restriction, and normal gas exchange capacity (DLco: 89%; DLco/VA: 95%).
When I saw the patient he was sitting on the edge of his bed in no acute distress, on room air breathing comfortably. He says he feels almost fully back to normal. Cough has improved, still bringing up some phlegm that is off�white, nonbloody. He
is hopeful that he can go home tomorrow. Currently denies chest pain, LAU, abdominal pain, diarrhea, fevers or chills.
PMHx: Moderate persistent asthma, DM type II on insulin, anxiety, chronic rhinosinusitis, GERD, history of eosinophilia, pulmonary hypertension, hypothyroidism
PSHx: LASIK surgery, sinus surgery, tooth extraction, cataract surgery
Past Medical History
Past Medical History: Other (Above as per HPI)
Past Surgical History: Other (Above as per HPI)
Social History
Tobacco: Non-smoker (Secondhand smoke exposure)
Alcohol: Occasional
Drug: None
Living: With Family
Employment: Employed (Works at a [employer])
Family History
Family History: Cancer (Mother: Lung cancer)
Allergies / Home Medications
Allergies
Allergy/AdvReac Type Severity Reaction Status Date / Time
grass pollen-perennial rye, Allergy Shortness Verified 06/29/24 10:45
standar of Breath
tree and shrub pollen Allergy PINE Verified 06/29/24 10:45
TREES-SHORTNESS
OF BREATH
Home Medications
�Medication �Instructions �Recorded �Confirmed �Last Taken �Type
paroxetine HCl 10 mg tablet 10 mg PO DAILY Mental Health 01/27/13 06/29/24 06/29/24 History
multivitamin with folic acid 400 1 tab PO DAILY Supplement 11/10/18 06/29/24 06/29/24 History
mcg tablet (Tab-A-Grayson)
montelukast 10 mg tablet 10 mg PO DAILY Lung/breathing 09/07/19 06/29/24 06/29/24 History
issues
albuterol sulfate 90 mcg/actuation 2 puff inhalation R Q4HPRN PRN sob 11/08/23 06/29/24 03/11/24 History
aerosol inhaler
budesonide-formoterol HFA 160 2 puff inhalation R BID 11/08/23 06/29/24 06/29/24 History
mcg-4.5 mcg/actuation aerosol Lung/Breathing Issues
inhaler (Symbicort)
fluticasone propionate 50 2 spray intranasal DAILY Allergies 11/08/23 06/29/24 06/29/24 History
mcg/actuation nasal
spray,suspension
insulin glargine 100 unit/mL (3 8 unit SC BID Diabetes 11/08/23 06/29/24 06/29/24 History
mL) subcutaneous pen (Lantus
Solostar U-100 Insulin)
metformin 1,000 mg tablet 1,000 mg PO BID Diabetes 11/08/23 06/29/24 06/29/24 History
umeclidinium 62.5 mcg/actuation 1 inh inhalation R DAILY 11/08/23 06/29/24 06/29/24 History
blister powder for inhalation Lung/Breathing Issues
(Incruse Ellipta)
levothyroxine 75 mcg tablet 75 mcg PO DAILY Thyroid 03/12/24 06/29/24 06/29/24 History
(Synthroid)
omega 6-ibv-thh-fish oil 1,200 mg 2 cap PO DAILY Supplement 03/12/24 06/29/24 06/29/24 History
(144 mg-216 mg) capsule (Fish Oil)
Review of Systems
-
History Source: Patient
All other systems: Negative unless noted (12 point ROS performed and is negative unless mentioned above.)
Vitals / Labs / Diagnostic Testing
Vital Signs
Temp Pulse Resp BP Pulse Ox
97.3 F 61 16 137/85 97
06/30/24 07:20 06/30/24 07:26 06/30/24 07:26 06/30/24 07:20 06/30/24 07:26
Lab Data
06/30/24 06:24
06/30/24 06:24
Microbiology
06/29/24 16:34 Nasal Swab Influenza Types A & B (SHANTAL) - Final
Negative for Influenza A & B, NAAT
Negative results must be combined with clinical observations
and patient history.
Nucleic Acid Amplification test (NAAT)performed on the
[employer] platform.
Diagnostic Testing:
Physical Exam
-
HEENT: Normocephalic, Anicteric and Moist Mucous Membranes
Cardiovascular: S1/S2, Peripheral Edema (negative) and Other (Distant heart sounds)
Respiratory: Clear, Wheeze (negative), Rales (negative), Rhonchi (negative), Non-Labored Respirations and Other (Diminished breath sounds bilaterally)
GI: Soft, Non Distended, Non Tender and Normal Bowel Sounds
Neurology: AO x 3 and Tremors (negative)
Skin: Warm and Dry
General: Respiratory Distress (negative), Comfortable, Chills (negative) and Sweats (negative)
Assessment
-
Assessment: 69-year-old M with PMHx of moderate persistent asthma on Symbicort/Incruse, DM type II, chronic sinusitis, GERD, history of elevated eosinophilic counts, pulmonary hypertension and hypothyroidism who presents with coughing + wheezing,
with COVID-19 antigen/flu A/B- and no acute cardiopulmonary process seen on CXR. He was diagnosed with acute asthmatic exacerbation, started on DuoNebs plus systemic steroids and admitted to the hospitalist service. Pulmonary consulted for
additional recommendations/management.
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
Impression:
#Moderate persistent asthma/moderate COPD with acute exacerbation
#DM type II on insulin
#CRS
#History of mild pulmonary hypertension (via TE from 2012 with PASP: 35-40mmHg assuming RAP 5-10mmHg
Plan:
- Continue with systemic steroids with Decadron 4mg IV q8hr and taper down as he clinically improves with eventual OCS taper
- DuoNebs QID with nebulized bronchodilators in between for breakthrough symptoms
- While on systemic steroids, maintain euglycemia with goal BG >100 and <180
- Continue Symbicort + Spiriva (no incruse here in the hospital) and resume his home inhalers upon discharge
- Maintain SpO2 >88 - 95% with supplemental O2 as needed
- Unclear if ABx are needed --> currently on Doxy 100mg IV q12hr --> would give 5 days maximum given no clinical or radiographic evidence of pneumonia
- Incentive spirometer encouraged
- Replete electrolytes with K>4, Mg>2
- Keep MAP>65, SBP>90mmHg
- DVT ppx: LMWH
Pulmonary service will continue to follow along.
Data:
CXR 06/29/2024: No radiographic evidence for pneumonia, pleural effusion or acute pulmonary edema. Mild bilateral lung hyperinflation.
Total time spent today was 55 minutes for this encounter. Time includes reviewing laboratory test/imaging results, reviewing pertinent medical records, obtaining and reviewing medical history, performing an appropriate exam, ordering medications,
tests and procedures. Time also includes documentation of this encounter, coordinating patient care and communicating with other healthcare professionals. Total time does not include separately billed tests performed on this date of service.
[2024-06-30] MEDS: GLUCOPHAGE 1000 MG PO ×2 (09:32→19:58)
[2024-06-30] MEDS: SINGULAIR 10 MG PO (09:33)
[2024-06-30] MEDS: LANTUS 0.08 UNITS SC ×2 (09:33→21:30)
[2024-06-30] MEDS: MUCINEX 600 MG PO ×2 (09:33→19:58)
[2024-06-30] MEDS: PAXIL 10 MG PO (09:33)
[2024-06-30 11:48] LABS: Glucose - Point of Care 129 mg/dl (70-99)
--- NOTE | 2024-06-30 11:50 | W.PN.HOSP.TC ---
Today's Communication/Plan
-
cw current tx
Assessment / Plan
Assessment / Plan
# Acute asthma exacerbation
-COVID negative
-chest x ray with No radiographic evidence for pneumonia, pleural effusion, or acute pulmonary edema.Mild bilateral lung hyperinflation.
-cw nebs
-cw Decadron 4mg iv q8 h
-cw Singulair
-Switch to PO doxycycline
-Tessalon prn for cough
-Pulmonary eval due to recurrent nature of asthma exacerbations this year. He was here in April with exacerbation as well.
# Hypothyroidism
-Levothyroxine continued
# Type 2 diabetes
-Lantus 8 units twice a day continued
-Sliding scale
-Carb controlled diet
-Metformin continued
# Anxiety
-Paxil continued
# DVT prophylaxis
-Lovenox subcu
# CODE STATUS
-Full code
Anticipated Discharge: 24 - 48 hours
Subjective/Interval History
-
Date of Service: June 30, 2024
Patient is feeling better since last night. Cough is improved. Less productive. Not short of breath. No fever chills.
Objective Data
-
Labs:
Laboratory Results
06/30/24
06:24
WBC 10.9 H
Hgb 14.4
Hct 41.9
Plt Count 254
Sodium 141
Potassium 4.8
Chloride 101
Carbon Dioxide 27
BUN 25 H
Creatinine 0.8
Glucose 128 H
Calcium 9.7
Vital Signs:
Vital Signs
Temp Pulse Resp BP Pulse Ox
97.3 F 61 16 137/85 97
06/30/24 07:20 06/30/24 07:26 06/30/24 07:26 06/30/24 07:20 06/30/24 07:26
Review of Systems
-
EENT: Denies Sore Throat
Abdomen/GI: Denies Abdominal Pain, Nausea or Vomiting
Neuro: Denies Dizzy
Physical Exam
-
General: No Apparent Distress
HEENT: Moist Mucous Membranes
Respiratory: Non Labored Respirations; Negative Wheezes, Crackles or Accessory Resp Muscle Use
Cardiac: Regular Rhythm and S1/S2
GI: Soft
Neuro: AO x 3; Negative Tremors
Psych: Calm; Negative Confused
Data Reviewed
-
Labs: Labs Reviewed by me
[2024-06-30 15:16] VITALS: BP 113/74
[2024-06-30 16:54] LABS: Glucose - Point of Care 150 mg/dl (70-99)
--- NOTE | 2024-06-30 17:30 | CM ---
Spoke with pt he said he would drive himself [place].
Offered VN he declined need.
PLAN Home no needs
[2024-06-30] MEDS: VIBRAMYCIN 100 MG PO (19:58)
[2024-06-30 21:17] LABS: Glucose - Point of Care 153 mg/dl (70-99)
[2024-06-30 23:35] VITALS: BP 112/62
[2024-07-01] MEDS: SYNTHROID 75 MCG PO (04:44)
[2024-07-01] MEDS: DECADRON 4 MG IV ×2 (04:44→11:49)
[2024-07-01 07:35] VITALS: BP 151/79
[2024-07-01 07:40] LABS: Glucose - Point of Care 128 mg/dl (70-99)
[2024-07-01] MEDS: NOVOLOG FLEXPEN-LOW RESISTANCE SC ×2 (07:42→11:46)
[2024-07-01] MEDS: DUONEB 3 ML INH ×2 (07:50→11:36)
[2024-07-01] MEDS: SYMBICORT 160/4.5 MCG INHALER 2 PUFF INH (07:51)
[2024-07-01] MEDS: GLUCOPHAGE 1000 MG PO (08:30)
[2024-07-01] MEDS: MUCINEX 600 MG PO (08:30)
[2024-07-01] MEDS: PAXIL 10 MG PO (08:30)
[2024-07-01] MEDS: LANTUS 0.08 UNITS SC (08:30)
[2024-07-01] MEDS: VIBRAMYCIN 100 MG PO (08:30)
[2024-07-01] MEDS: SINGULAIR 10 MG PO (08:30)
--- NOTE | 2024-07-01 09:40 | W.PN.PUL3 ---
Today's Communication / Plan
-
Up OOB as tolerated
Encourage incentive spirometer
DC home on prednisone taper
Resume home inhalers upon discharge
Patient be prepared for discharge home today. Pulmonary service will now sign off. We will arrange for outpatient follow-up with Dr. Perkins. Please reconsult if there are any additional questions/concerns, or if patient's respiratory status
deteriorates.
Assessment
-
Assessment: 69-year-old M with PMHx of moderate persistent asthma on Symbicort/Incruse, DM type II, chronic sinusitis, GERD, history of elevated eosinophilic counts, pulmonary hypertension and hypothyroidism who presents with coughing + wheezing,
with COVID-19 antigen/flu A/B- and no acute cardiopulmonary process seen on CXR. He was diagnosed with acute asthmatic exacerbation, started on DuoNebs plus systemic steroids and admitted to the hospitalist service. Pulmonary consulted for
additional recommendations/management.
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
Impression:
#Moderate persistent asthma/moderate COPD with acute exacerbation
#DM type II on insulin
#CRS
#History of mild pulmonary hypertension (via TE from 2012 with PASP: 35-40mmHg assuming RAP 5-10mmHg
Plan:
- Continue with systemic steroids with Decadron 4mg IV q8hr
- DC home on prednisone taper starting at 40mg and reduce by 10mg every 4th day until off
- DuoNebs QID with nebulized bronchodilators in between for breakthrough symptoms
- While on systemic steroids, maintain euglycemia with goal BG >100 and <180
- Continue Symbicort + Spiriva (no incruse here in the hospital) and resume his home inhalers upon discharge
- Maintain SpO2 >88 - 95% with supplemental O2 as needed
- Unclear if ABx are needed --> currently on Doxy 100mg IV q12hr --> would give 5 days maximum given no clinical or radiographic evidence of pneumonia
- Incentive spirometer encouraged
- Replete electrolytes with K>4, Mg>2
- Keep MAP>65, SBP>90mmHg
- DVT ppx: LMWH
Patient be prepared for discharge home today. Pulmonary service will now sign off. We will arrange for outpatient follow-up with Dr. Perkins. Thank you for allowing us to be involved in the care of this patient. Please reconsult if there are any
additional questions/concerns, or if patient's respiratory status deteriorates.
Data:
CXR 06/29/2024: No radiographic evidence for pneumonia, pleural effusion or acute pulmonary edema. Mild bilateral lung hyperinflation.
Total time spent today was 25 minutes for this encounter. Time includes reviewing laboratory test/imaging results, reviewing pertinent medical records, obtaining and reviewing medical history, performing an appropriate exam, ordering medications,
tests and procedures. Time also includes documentation of this encounter, coordinating patient care and communicating with other healthcare professionals. Total time does not include separately billed tests performed on this date of service.
Subjective Data
-
Date of Service:
Date of Service: July 01, 2024
Chief Complaint: Pulmonary Follow Up
Subjective:
Patient seen and evaluated today at bedside. He feels much better, back to baseline. No acute events reported from overnight. Denies shortness of breath or wheezing. Being prepared for discharge home today.
Review of Systems
General: Other (Negative unless mentioned above)
Objective Data
Data Reviewed
Vital Signs / I&O / Oxygen:
Vital Signs
Temp Pulse Resp BP Pulse Ox
97.7 F 88 16 151/79 96
07/01/24 07:35 07/01/24 07:54 07/01/24 07:54 07/01/24 07:35 07/01/24 08:15
Intake and Output
06/30/24 07/01/24 07/02/24
06:59 06:59 06:59
Intake Total 1620 / 1620
Balance 1619
SaO2 96
Physical Exam
General: Respiratory Distress (negative) and Comfortable
HEENT: Normocephalic and Anicteric
Cardiovascular: S1-S2, Peripheral Edema (negative) and Other (Distant heart sounds)
Respiratory: Wheeze (negative), Crackles (negative), Rhonchi (negative), Non-Labored Respirations and Other (Diminished breath sounds bilaterally)
GI: Soft, Non Distended, Non Tender and Normal Bowel Sounds
Neurology: AO x 3 and Tremors (negative)
Skin: Warm, Dry, Cyanosis (negative) and Jaundice (negative)
Labs/Micro/Reports
Lab Data
06/30/24 06:24
06/30/24 06:24
Microbiology
06/29/24 16:34 Nasal Swab Influenza Types A & B (SHANTAL) - Final
Negative for Influenza A & B, NAAT
Negative results must be combined with clinical observations
and patient history.
Nucleic Acid Amplification test (NAAT)performed on the
[employer] platform.
[2024-07-01 11:19] VITALS: BP 139/81
[2024-07-01 11:40] LABS: Glucose - Point of Care 141 mg/dl (70-99)
--- NOTE | 2024-07-01 13:15 | W.PN.HOSP.TC ---
Today's Communication/Plan
-
dc
Assessment / Plan
Assessment / Plan
# Acute asthma exacerbation
-COVID negative
-chest x ray with No radiographic evidence for pneumonia, pleural effusion, or acute pulmonary edema.Mild bilateral lung hyperinflation.
-Clinically much improved. No wheeze since yesterday. Afebrile.
-cw Singulair
-Tessalon prn for cough
-Pulmonary eval appreciated
-With improvement will plan for discharge on prednisone taper and finished course of doxycycline at home.
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
# Hypothyroidism
-Levothyroxine continued
# Type 2 diabetes
-Lantus 8 units twice a day continued
-Sliding scale
-Carb controlled diet
-Metformin continued
# Anxiety
-Paxil continued
# DVT prophylaxis
-Lovenox subcu
# CODE STATUS
-Full code
Medically stable for DC
More than 30 minutes spent in discharge including
Final examination of the patient
Summarizing hospital stay
Instructions for continuing care to all relevant caregivers
Preparation of discharge records, prescriptions, and referral forms
Total time spent (in minutes): 32
Anticipated Discharge: Today
Subjective/Interval History
-
Date of Service: July 01, 2024
Patient feeling much improved. No wheezing. Not much of cough. Denies shortness of breath
Objective Data
-
Vital Signs:
Vital Signs
Temp Pulse Resp BP Pulse Ox
98.1 F 75 16 139/81 95
07/01/24 11:19 07/01/24 11:39 07/01/24 11:39 07/01/24 11:19 07/01/24 11:39
I&O
06/30/24 07/01/24 07/02/24
06:59 06:59 06:59
Intake Total 1619 / 1619
Balance 1619
Review of Systems
-
Constitutional: Denies Fever
EENT: Denies Sore Throat
Cardiac: Denies Chest Pain
Abdomen/GI: Denies Abdominal Pain, Nausea or Vomiting
Neuro: Denies Dizzy
Physical Exam
-
General: Comfortable
Respiratory: Non Labored Respirations; Negative Wheezes, Crackles or Accessory Resp Muscle Use
Cardiac: Regular Rhythm and S1/S2
GI: Soft
Neuro: AO x 3
Data Reviewed
-
Labs: Labs Reviewed by me
--- NOTE | 2024-07-01 13:21 | W.DS.TRANS ---
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
-
Discharge Instructions:
Discharge Diagnosis/Procedures Acute asthma flare
Diet Regular
Activity As tolerated
Driving Restrictions As prior to admission
Bathing Restrictions None
Instructions:
Stand-Alone Forms:
Changes to Home Medications: Yes
Discharge Medications:
DC Medications w/original date entered in [employer]
paroxetine HCl 10 mg tablet 10 mg PO DAILY Mental Health 01/27/13
multivitamin with folic acid 400 mcg tablet (Tab-A-Grayson) 1 tab PO DAILY Supplement 11/10/18
montelukast 10 mg tablet 10 mg PO DAILY Lung/breathing issues 09/07/19
albuterol sulfate 90 mcg/actuation aerosol inhaler 2 puff inhalation R Q4HPRN PRN sob 11/08/23
budesonide-formoterol HFA 160 mcg-4.5 mcg/actuation aerosol inhaler (Symbicort) 2 puff inhalation R BID Lung/Breathing Issues 11/08/23
fluticasone propionate 50 mcg/actuation nasal spray,suspension 2 spray intranasal DAILY Allergies 11/08/23
insulin glargine 100 unit/mL (3 mL) subcutaneous pen (Lantus Solostar U-100 Insulin) 8 unit SC BID Diabetes 11/08/23
metformin 1,000 mg tablet 1,000 mg PO BID Diabetes 11/08/23
umeclidinium 62.5 mcg/actuation blister powder for inhalation (Incruse Ellipta) 1 inh inhalation R DAILY Lung/Breathing Issues 11/08/23
levothyroxine 75 mcg tablet (Synthroid) 75 mcg PO DAILY Thyroid 03/12/24
omega 2-ycf-fux-fish oil 1,200 mg (144 mg-216 mg) capsule (Fish Oil) 2 cap PO DAILY Supplement 03/12/24
doxycycline hyclate 100 mg capsule 100 mg PO Q12 #8 caps 07/01/24
guaifenesin 600 mg tablet, extended release 12 hr 600 mg PO Q12 #14 tabs 07/01/24
prednisone 10 mg tablet 10 mg PO DIRECTED #20 tabs 07/01/24
Home Medication Changes
New medication-prednisone taper, doxycycline, Mucinex
Pending Results: No
--- NOTE | 2024-07-01 14:07 | CM ---
CM reviewed chart and noted dc order
Bedside meeting with pt- no needs noted
IMM verbally reviewed- copy provided
Discharge Disposition- home, no needs
--- NOTE | 2024-07-02 17:53 | W.DCSUMMARY ---
Discharge Summary
Discharge Data
Date of Admission: 06/29/24
Date of Discharge: 07/01/24
-
Pending Results: No
Hospital Course
Primary diagnosis:
Acute asthma exacerbation
Secondary diagnosis:
Hypothyroid
Diabetes mellitus type.
Anxiety
Hospital course:
Patient with a history of asthma with recent frequent breaks presented with another acute asthma flare. No evidence of pneumonia noted. No evidence of COVID. He was initiated on steroids and oral doxycycline because he was having cough with
productive phlegm. Was put on nebulizers. Seen by pulmonary. He made a quick progress and was discharged home on steroid taper.
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 Advised him to wear masks to see if it helps decreasing his asthma flares.
Consultants on board:
Pulmonary-Lewis Goldman
Discharge Plan
-
Patient Disposition: Home (Routine Discharge)
Discharge Diagnosis/Procedures: Acute asthma flare
Diet: Regular
Activity: As tolerated
Driving Restrictions: As prior to admission
Bathing Restrictions: None
Referrals:
Nhi Perkins MD [Active] - in one to two weeks (Follow up with BLASTING MACHINE OPERATOR if no availability with Dr. Perkins.)
Jean Claude Perez MD [Family Provider] - in less than 1 week
Prescriptions:
New
prednisone 10 mg tablet
10 mg PO DIRECTED Qty: 20 0RF
Rx Instructions:
40mg daily for 2 days and then taper by 10mg every two days
guaifenesin 600 mg Tablet Extended Release 12hr
600 mg PO Q12 Qty: 14 0RF
doxycycline hyclate 100 mg Capsule
100 mg PO Q12 Qty: 8 0RF
Continued
paroxetine HCl 10 MG tablet
10 mg PO DAILY
multivitamin with folic acid [Tab-A-Grayson] 1 TABLET tablet
1 tab PO DAILY
montelukast 10 MG tablet
10 mg PO DAILY
metformin 1,000 mg Tablet
1,000 mg PO BID
albuterol sulfate 90 mcg/actuation Hfa Aerosol Inhaler
2 puff INHALATION R Q4HPRN PRN (Reason: sob)
fluticasone propionate 50 mcg/actuation [place],Suspension
2 spray INTRANASAL DAILY
budesonide-formoterol [Symbicort] 160-4.5 mcg/actuation Hfa Aerosol Inhaler
2 puff INHALATION R BID
Patient Comments:
05/10/24- patient buys from [facility]
insulin glargine [Lantus Solostar U-100 Insulin] 100 unit/mL (3 mL) Insulin Pen
8 unit SC BID
Incruse Ellipta 62.5 mcg/actuation Blister With Device
1 inh INHALATION R DAILY
levothyroxine [Synthroid] 75 mcg Tablet
75 mcg PO DAILY
omega 7-awx-ekr-fish oil [Fish Oil] 1,200 (144-216) mg Capsule
2 cap PO DAILY
Discharge Orders:
Discharge Patient (As Directed); Ordered 07/01/24
Ordered By: Ahsan Magdaleno
Discharge Date and Time
Discharge Date/Time: 07/01/24 14:32
Print Language: LUXEMBOURGISH
== END 2024-07-01 14:32 | disposition home or self-care (01) | DRG 202 ==
LOC: 4 EAST ACU 15:21
PROVIDERS: Registered Nurse; ADMITTING PHYSICIAN Internal Medicine; EMERGENCY PHYSICIAN Emergency Medicine; FAMILY PHYSICIAN Family Medicine; OTHER PHYSICIAN Internal Medicine Critical Care Medicine
DX: J45.41 Moderate persistent asthma with (acute) exacerbation (principal); J44.1 Chronic obstructive pulmonary disease with (acute) exacerbation; E03.9 Hypothyroidism, unspecified; E11.9 Type 2 diabetes mellitus without complications; F41.9 Anxiety disorder, unspecified; Z11.52 Encounter for screening for COVID-19
CPT/HCPCS: 71045; 80048; 80053; 82962; 83036; 83735; 85025; 85027; 87502; 87811; 94640; 99285

== ENCOUNTER 2024-08-09 13:34 | Inpatient (IN) | payer MEDICARE, OTHER, SELFPAY ==
[2024-08-09] VITALS (8 sets, daily range): BP systolic 130–179; BP diastolic 80–103; BMI 27.6
[2024-08-09 10:33] LABS: COVID-19 Antigen Negative (Negative)
[2024-08-09 11:23] LABS: % Basophils 0.8 % (0-2); % Eosinophils 3.8 % (0-6); % Immature Granulocytes 0.1 % (0-0.5); % Lymphocytes 16.6 % (20.5-51.1); % Monocytes 9.5 % (1.7-9.3); % Neutrophils 69.2 % (42.2-75.2); Absolute Basophils 0.1 10^3/uL (0-0.2); Absolute Eosinophils 0.4 10^3/uL (0-0.7); Absolute Lymphocytes 1.5 10^3/uL (1.2-3.4); Absolute Monocytes 0.9 10^3/uL (0.1-0.6); Absolute Neutrophils 6.4 10^3/uL (1.4-6.5); Hematocrit 42.7 % (39.0-52.0); Hemoglobin 14.8 g/dL (13.0-18.0); Mean Corp Hgb Conc. 34.7 g/dL (33.0-37.0); Mean Corpuscular Hgb 30.7 pg (27.0-31.0); Mean Corpuscular Volume 88.6 fL (80.0-94.0); Mean Platelet Volume 9.1 fL (7.4-10.4); Nucleated Red Blood Cells % 0 % (-); Platelet Count 299 10^3/uL (130-400); Red Blood Cell Count 4.82 10^6/uL (4.70-6.10); Red Cell Dist. Width 13.4 % (11.5-14.5); White Blood Cell Count 9.3 10^3/uL (4.8-10.8)
--- NOTE | 2024-08-09 11:25 | ED.GENMED ---
History of Present Illness
<Payal Zamorano PA-C - Last Filed: 08/09/24 13:18>
General
Chief Complaint: Breathing Problem
Source: patient
Exam Limitations: none
Time Seen by Provider: 08/09/24 11:25
Nursing documentation reviewed up to this point in time: agreed with
History of Present Illness
History of Present Illness:
69-year-old male with a past medical history of COPD, GERD, diabetes presents to the emergency department today with concerns of increasing dyspnea upon exertion, purulent sputum production, diffuse wheezing for the past few days. Patient reports
that he did do albuterol neb treatments at home which did not help his symptoms. Patient reports that when he was simply walking across the living room, he became very short of breath and anxious and felt like it was so hard for him to breathe.
Patient denies any chest pain, hemoptysis. Patient denies any fevers or chills at home however does note that he felt very flushed when he first arrived to the emergency department. Patient denies any abdominal pain, diarrhea, constipation,
nausea, vomiting. Patient denies any headaches. Patient uses ProAir daily as a maintenance inhaler and uses albuterol inhaler as needed, he does follow-up with rrt Dr. Perkins.
Past History
<Payal Zamorano PA-C - Last Filed: 08/09/24 13:18>
Past History
ED Past Medical History: Asthma, COPD, GERD and Other (Sinusitis)
ED Past Surgical History: Other (Sinus surgery)
Patient has exhibited threatening behavior?: No
PSI?: No
Social History
Tobacco: 2nd hand smoke exposure (As a child)
Alcohol: None
Drug: None
Personal:
Living: with family
Employment: Employed
Family History
Family History: Other (Noncontributory)
Review of Systems
<Payal Zamorano PA-C - Last Filed: 08/09/24 13:18>
Review of Systems
All Other Systems: ROS reviewed and negative except as documented in HPI and ROS
Phy Exam
<Payal Zamorano PA-C - Last Filed: 08/09/24 13:18>
Physical Exam
Physical Exam:
General: Patient is well appearing and in no acute distress; non-toxic
Skin: Warm and dry, no rashes or lesions
Head: Normocephalic, atraumatic
Eyes: Sclera non-icteric. EOMs intact. PERRLA.
Cardiac: Regular rate and rhythm, no murmurs
Peripheral Vascular: No lower extremity swelling or edema
Pulm: Diffuse audible wheezing heard, tachypnea noted, conversational dyspnea, diffuse wheezing heard bilaterally
Neuro: CN II-XII intact, no focal neurologic deficits.
Psychiatric: Appropriate mood and affect.
Scores
<Payal Zamorano PA-C - Last Filed: 08/09/24 13:18>
Heart Failure Risk
Heart Failure Risk Score: Not Applicable
Course
<Payal Zamorano PA-C - Last Filed: 08/09/24 13:18>
Orders/Labs/Results
Orders:
Orders
08/09/24 09:48
Electrocardiogram (*1) Urgent
Reason for Study: Shortness of Breath
08/09/24 09:49
EKG- Treatment ONCE
08/09/24 10:03
COVID-19 Antigen Urgent
Source: Nasal Swab
Influenza A+B Rapid Molecular Urgent
STONEY Source: Nasal Swab
Specimen Description:
08/09/24 11:01
CXR2 [CR Chest - 2 Views ] Urgent
Comment:
Reason For Exam: sob
08/09/24 11:11
CMP [Comprehensive Metabolic Panel] Urgent
Complete Blood Count/With Diff Urgent
08/09/24 11:48
Dexamethasone Sod Phosphate [Decadron] 10 mg IV NOW STA
Ipratropium/Albuterol Sulfate [Duoneb] 3 ml INH R NOW ONE
08/09/24 11:49
0.9% Sodium Chloride 500 ml [Nss] 500 ml IV BOLUS
08/09/24 12:04
0.9% Sodium Chloride 500 ml [Nss] 500 ml IV BOLUS
08/09/24 12:40
Ipratropium/Albuterol Sulfate [Duoneb] 3 ml INH R NOW STA
08/09/24 12:43
Azithromycin 500 mg/250 ml [Zithromax Infusion] 500 mg in 250 ml IV NOW
CefTRIAXone [Rocephin] 1,000 mg IV NOW STA
08/09/24 13:01
Procalcitonin Urgent
PCT Algorithmm Indication: Respiratory
Abnormal Lab Results
08/09/24
11:11
Absolute Monos (auto) 0.9 H 10^3/uL
(0.1-0.6)
Lymphocytes % 16.6 L %
(20.5-51.1)
Monocytes % 9.5 H %
(1.7-9.3)
Glucose 249 H mg/dl
(70-99)
08/09/24 11:11
08/09/24 11:11
Vital Signs
Initial and Last Documented VS:
Initial Vital Signs
Temp Pulse Resp BP Pulse Ox
98 F 109 18 179/103 94
08/09/24 09:52 08/09/24 09:52 08/09/24 09:52 08/09/24 09:52 08/09/24 09:52
Last Documented Vital Signs
Temp Pulse Resp BP Pulse Ox
98 F 59 17 130/83 94
08/09/24 09:52 08/09/24 12:45 08/09/24 12:45 08/09/24 12:28 08/09/24 09:52
<Morgan Lovett, DO - Last Filed: 08/09/24 12:43>
Orders/Labs/Results
Orders:
Orders
08/09/24 09:48
Electrocardiogram (*1) Urgent
Reason for Study: Shortness of Breath
08/09/24 09:49
EKG- Treatment ONCE
08/09/24 10:03
COVID-19 Antigen Urgent
Source: Nasal Swab
Influenza A+B Rapid Molecular Urgent
STONEY Source: Nasal Swab
Specimen Description:
08/09/24 11:01
CXR2 [CR Chest - 2 Views ] Urgent
Comment:
Reason For Exam: sob
08/09/24 11:11
CMP [Comprehensive Metabolic Panel] Urgent
Complete Blood Count/With Diff Urgent
08/09/24 11:48
Dexamethasone Sod Phosphate [Decadron] 10 mg IV NOW STA
Ipratropium/Albuterol Sulfate [Duoneb] 3 ml INH R NOW ONE
08/09/24 11:49
0.9% Sodium Chloride 500 ml [Nss] 500 ml IV BOLUS
08/09/24 12:04
0.9% Sodium Chloride 500 ml [Nss] 500 ml IV BOLUS
08/09/24 12:40
Ipratropium/Albuterol Sulfate [Duoneb] 3 ml INH R NOW STA
08/09/24 12:43
Azithromycin 500 mg/250 ml [Zithromax Infusion] 500 mg in 250 ml IV NOW
CefTRIAXone [Rocephin] 1,000 mg IV NOW STA
08/09/24 13:01
Procalcitonin Urgent
PCT Algorithmm Indication: Respiratory
Abnormal Lab Results
08/09/24
11:11
Absolute Monos (auto) 0.9 H 10^3/uL
(0.1-0.6)
Lymphocytes % 16.6 L %
(20.5-51.1)
Monocytes % 9.5 H %
(1.7-9.3)
Glucose 249 H mg/dl
(70-99)
08/09/24 11:11
08/09/24 11:11
Vital Signs
Initial and Last Documented VS:
Initial Vital Signs
Temp Pulse Resp BP Pulse Ox
98 F 109 18 179/103 94
08/09/24 09:52 08/09/24 09:52 08/09/24 09:52 08/09/24 09:52 08/09/24 09:52
Last Documented Vital Signs
Temp Pulse Resp BP Pulse Ox
98 F 59 17 130/83 94
08/09/24 09:52 08/09/24 12:45 08/09/24 12:45 08/09/24 12:28 08/09/24 09:52
Inessalt;Payal Zamorano PA-C - Last Filed: 08/09/24 13:18>
MDM/Problems Addressed
Differential Diagnosis Includes:
Differentials include kidney acquired pneumonia, COPD exacerbation, heart failure, pleural effusion, pneumothorax
MDM/Problems Addressed:
69-year-old male with a past medical history of COPD, asthma presents emergency department today with an acute COPD exacerbation. Patient notes a change in his sputum, significant dyspnea with exertion, and audible wheezing and air hunger. Here in
emergency department, he appears well however he does appear to have increased respiratory rate, audible wheezing, and pulse ox of 90 to 94%. Patient was given 2 L and reports that the this improve his symptoms however with DuoNeb treatments, his
wheezing has not improved. His x-ray shows bilateral lower lobe pneumonia, however patient has no fever here, no leukocytosis. That he would do well at home and states that he feels very sick and short of breath. Patient given Decadron fluids and
DuoNeb treatment. Will start antibiotics will admit to hospitalist.
Chronic conditions affecting care:
Asthma, COPD, diabetes
<Payal Zamorano PA-C - Last Filed: 08/09/24 13:18>
*Pulse Oximetry
Patient hypoxic: no
*EKG
Interpreted by ED Provider?: Yes
EKG Intrepretation Date: 08/09/24
Interpretation: normal
Comparison EKG: no changes
Heart Rate: 90
Rate: normal
Rhythm: sinus
[place]: left axis deviation
Interval: normal interval
Ischemia: non-specific ST changes
*Critical Care Note
Total Time (30-74mins, 75-104mins- exclusive of procedures): Not Applicable
Data Reviewed
Review of Other/Old Records Reveals: Records (Reviewed discharge summary from 07/02/2024, patient seen for COPD exacerbation)
Source: patient and records
Prescriptions/Medications Considered But Not Given:
n/a
Further Testing Considered But Not Given:
n/a
<Payal Zamorano PA-C - Last Filed: 08/09/24 13:18>
Patient Management
Escalation/DeEscalation of care consider admission/obs:
Admission indicated
ED Attending Note
<Payal Zamorano PA-C - Last Filed: 08/09/24 13:18>
-
Portions of this chart may have been created with voice recognition software.� Occasional wrong word or��sound alike� substitutions may have occurred due to the inherent limitations of voice recognition software.
<Morgan Lovett DO - Last Filed: 08/09/24 12:43>
ED Attending Note
Patient seen and examined by attending physician: Yes
I performed the substantive portion of visit, reviewed & personally made and approve the management plan that is documented in note by myself or IRWIN.: Yes
ED Attending Note:
Seen with PA examined independently agree with assessment and plan 69-year-old male COPD followed by pulmonary, presents with cough shortness of breath fairly severe earlier today, after neb at home and neb here feeling a little bit better still not
at his baseline is diffusely audibly wheezing, appears tachypneic, plan to be nebs steroids chest x-ray low threshold to admit patient does not feel at his baseline
Discharge Plan
Departure
Patient Disposition: Admit
Date of Disposition: 08/09/24
Time of Disposition: 12:56
Admit to: Med/Surg
Presentation/result/management discussed w/ accepting MD/DO: Hospitalist
Patient with high blood pressure during this ER visit?: Yes
Condition: Fair
Discharge Problem:
Community acquired pneumonia, COPD exacerbation
Prescriptions:
No Action
paroxetine HCl 10 MG tablet
10 mg PO DAILY
multivitamin with folic acid [Tab-A-[place]] 1 TABLET tablet
1 tab PO DAILY
montelukast 10 MG tablet
10 mg PO DAILY
metformin 1,000 mg Tablet
1,000 mg PO BID
albuterol sulfate 90 mcg/actuation Hfa Aerosol Inhaler
2 puff INHALATION R Q4HPRN PRN (Reason: sob)
fluticasone propionate 50 mcg/actuation [place],Suspension
2 spray INTRANASAL DAILY
budesonide-formoterol [Symbicort] 160-4.5 mcg/actuation Hfa Aerosol Inhaler
2 puff INHALATION R BID
Patient Comments:
05/10/24- patient buys from [facility]
insulin glargine [Lantus Solostar U-100 Insulin] 100 unit/mL (3 mL) Insulin Pen
8 unit SC BID
Incruse Ellipta 62.5 mcg/actuation Blister With Device
1 inh INHALATION R DAILY
levothyroxine [Synthroid] 75 mcg Tablet
75 mcg PO DAILY
omega 3-vjg-gui-fish oil [Fish Oil] 1,200 (144-216) mg Capsule
2 cap PO DAILY
prednisone 10 mg tablet
10 mg PO DIRECTED Qty: 20 0RF
Rx Instructions:
40mg daily for 2 days and then taper by 10mg every two days
guaifenesin 600 mg Tablet Extended Release 12hr
600 mg PO Q12 Qty: 14 0RF
doxycycline hyclate 100 mg Capsule
100 mg PO Q12 Qty: 8 0RF
Referrals:
Arlyn Sheriff PA-C [Family Provider] -
Interventions
Interventions:
*Risk Screen - Suicide Last Done: 08/09/24 09:52
*General Assessment Last Done: 08/09/24 10:57
*Neglect/Abuse Screening Last Done: 08/09/24 09:52
ED- Fall Risk Assessment Last Done: 08/09/24 12:10
*ED COVID-19 Vaccine History Last Done: 08/09/24 10:57
ED- Cardiac Assessment Last Done: 08/09/24 12:10
ED- Pulmonary Assessment Last Done: 08/09/24 12:10
Discharge Date and Time
Print Language: GUINEAN
[2024-08-09 11:37] LABS: ALT (SGPT) 27 U/L (0-50); AST (SGOT) 33 U/L (17-59); Albumin 4.3 g/dl (3.5-5.0); Alkaline Phosphatase 73 U/L (38-126); Blood Urea Nitrogen 19 mg/dl (9-20); Calcium 9.6 mg/dl (8.4-10.2); Carbon Dioxide 26 mmol/L (22-30); Chloride 101 mmol/L (98-107); Glucose 249 mg/dl (70-99); Potassium 4.2 mmol/L (3.5-5.1); Sodium 138 mmol/L (135-145); Total Bilirubin 0.4 mg/dl (0.2-1.3); Total Protein 6.5 g/dl (6.3-8.2); eGFR > 60.00
[2024-08-09] MEDS: NSS 500 IV ×2 (11:58→12:30)
[2024-08-09] MEDS: DUONEB 3 ML INH ×3 (11:59→20:07)
[2024-08-09] MEDS: DECADRON 10 MG IV (11:59)
[2024-08-09] MEDS: ZITHROMAX INFUSION 250 IV (12:57)
[2024-08-09] MEDS: ROCEPHIN 1000 MG IV (12:57)
--- NOTE | 2024-08-09 13:01 | HPS.HSE ---
Addendum entered and electronically signed by Alberto Anthony MD 08/09/24 14:20:
I saw and examined the patient.
The INCISING MACHINE OPERATOR or PA's note was reviewed and I agree with the note.
Comment:
69M HX COPD, questionable Bronchiectasis pw productive cough , pale yellow sputum, increased use of Neb but no improvement at home.
Afebrile. Nl WCC.
Not hypoxic POx but O2 for comfort.
Received several nebs at ER and helping
CXR read as b/l PNA.
Pending PCT.
Received Iv CFTZ and Azithromycin.
Still wheezing after several Nebs. Thus started on Empiric IV Decadron 4 mg q8.
Admitted for AE COPD further Tx
LMWH for DVT Px.
IP MS
Original Note:
Family Physician
-
Family Physician: Arlyn Sheriff PA-C
Chief Complaint
-
Cough and Shortness of Breath
History of Present Illness
Patient is a 69 y/o male past medical history of Asthma/COPD, pulmonary hypertension, anxiety, and hypothyroidism who presents with increased cough and shortness of breath. Patient reports symptoms started a few days ago. He has been using his
home nebulizer without improvement in his symptoms. He reports cough is productive of pale yellow mucus. He reports chest tightness, but denies any chest pain. He reports feeling slightly feverish upon arrival to the emergency department, but no
recorded fever.
Medical History
Past Medical History
Past Medical History: Reports Other
Additional Past Medical History:
Diabetes Mellitus, Type II
Hyperlipidemia
Asthma / COPD
Peripheral Eosinophilia
Pulmonary Hypertension
Hypothyroidism
Anxiety
Past Surgical History: Reports Other
Additional Past Surgical History:
Sinus surgery
Social History
Tobacco: Non-smoker
Alcohol: Occasional
Drug: None
Living: With Family
Family History
Family History: Not pertinent
Allergies / Home Medications
Allergies reflects when Allergies were last updated in [facility].
Home Medications with original date entered in [employer]
Allergy/Medication List:
Allergies
Allergy/AdvReac Type Severity Reaction Status Date / Time
grass pollen-perennial rye, Allergy Shortness Verified 06/29/24 10:45
standar of Breath
tree and shrub pollen Allergy PINE Verified 06/29/24 10:45
TREES-SHORTNESS
OF BREATH
Home Medications
paroxetine HCl 10 mg tablet 10 mg PO DAILY Mental Health 01/27/13
multivitamin with folic acid 400 mcg tablet (Tab-A-[place]) 1 tab PO DAILY Supplement 11/10/18
montelukast 10 mg tablet 10 mg PO DAILY Lung/breathing issues 09/07/19
albuterol sulfate 90 mcg/actuation aerosol inhaler 2 puff inhalation R Q4HPRN PRN sob 11/08/23
budesonide-formoterol HFA 160 mcg-4.5 mcg/actuation aerosol inhaler (Symbicort) 2 puff inhalation R BID Lung/Breathing Issues 11/08/23
fluticasone propionate 50 mcg/actuation nasal spray,suspension 2 spray intranasal DAILY Allergies 11/08/23
insulin glargine 100 unit/mL (3 mL) subcutaneous pen (Lantus Solostar U-100 Insulin) 8 unit SC BID Diabetes 11/08/23
metformin 1,000 mg tablet 1,000 mg PO BID Diabetes 11/08/23
umeclidinium 62.5 mcg/actuation blister powder for inhalation (Incruse Ellipta) 1 inh inhalation R DAILY Lung/Breathing Issues 11/08/23
levothyroxine 75 mcg tablet (Synthroid) 75 mcg PO DAILY Thyroid 03/12/24
omega 3-toy-ymq-fish oil 1,200 mg (144 mg-216 mg) capsule (Fish Oil) 2 cap PO DAILY Supplement 03/12/24
guaifenesin 600 mg tablet, extended release 12 hr 600 mg PO Q12 #14 tabs 07/01/24
famotidine 20 mg tablet (Pepcid) 20 mg PO BID 08/09/24
Review of Systems
-
A 12 point ROS was completed and negative except as noted: Yes
Constitutional: Denies Fever or Chills
Respiratory: Reports Cough and Trouble Breathing
Cardiac: Denies Chest Pain or Palpitations
Physical Exam
Vital Signs
Vital Signs
Temp Pulse Resp BP Pulse Ox
98 F 59 17 130/83 94
08/09/24 09:52 08/09/24 12:45 08/09/24 12:45 08/09/24 12:28 08/09/24 09:52
Physical Exam
General: Comfortable and Conversant
HEENT: Anicteric, Moist mucous membranes and Oxygen (Nasal Cannula)
Respiratory: Wheezes (Diffuse) and Non Labored Respirations
Cardiac: S1/S2 and Regular Rhythm
GI: Soft and Non Distended
Musculoskeletal: No Clubbing, No Cyanosis and No Edema
Skin: Warm and Dry
Neuro: Awake, Alert, Oriented and Nonfocal/grossly intact
Psych: Calm
Laboratory Results
-
08/09/24 11:11
08/09/24 11:11
Laboratory Results
Total Bilirubin 0.4 mg/dl (0.2-1.3) 08/09/24 11:11
AST 33 U/L (17-59) 08/09/24 11:11
ALT 27 U/L (0-50) 08/09/24 11:11
Alkaline Phosphatase 73 U/L (38-126) 08/09/24 11:11
Chest X-Ray:
Patchy airspace opacities within the bilateral lower lobes, suspicious for infection/pneumonia
Data Reviewed
-
Diagnostic Radiology: Report Reviewed by me
Lab Data: Labs Reviewed by me
Impression/Plan
-
Acute Asthma / COPD Exacerbation
-Continue Decadron
-Continue Duoneb qID and PRN
-Continue Pulmicort Neb
-Continue Mucinex
-Continue Zithromax and Rocephin for possible pneumonia - Consider stopped ceftriaxone if procalcitonin is negative as WBC is normal and patient is afebrile
Diabetes Mellitus, Type II
-HgbA1c 6.0 in Jun 2024
-Continue Lantus and Metformin
-Monitor sugars and continue coverage insulin
Hypothyroidism
-Continue levothyroxine
Anxiety
-Continue paroxetine
DVT proph: Lovenox
Code Status: Full Code
[2024-08-09 15:03] LABS: Procalcitonin < 0.05 ng/ml (0.0-0.25)
--- NOTE | 2024-08-09 16:11 | PTCARENOTE ---
pt presented from ED via stretcher. pt is AAO*3, vss. 95% on 2L. pt c/o SOB with exertion. pt aware of using call foley when getting oob. pt is oriented to the room. call foley within the reach. plan of care ongoing.
[2024-08-09 16:32] LABS: Glucose - Point of Care 132 mg/dl (70-99)
[2024-08-09] MEDS: NOVOLOG FLEXPEN-MODERATE RESISTANCE SC (16:36)
[2024-08-09] MEDS: GLUCOPHAGE 1000 MG PO (17:08)
[2024-08-09] MEDS: DECADRON 4 MG IV (17:08)
[2024-08-09] MEDS: DUONEB INH (17:22)
[2024-08-09] MEDS: PULMICORT 0.5 MG INH (20:07)
[2024-08-09] MEDS: PEPCID 20 MG PO (20:58)
[2024-08-09] MEDS: LANTUS 0.08 UNITS SC (20:58)
[2024-08-09] MEDS: MUCINEX 600 MG PO (20:58)
[2024-08-09 21:00] LABS: Glucose - Point of Care 206 mg/dl (70-99)
[2024-08-10] MEDS: DECADRON 4 MG IV ×3 (02:19→17:11)
[2024-08-10] MEDS: SYNTHROID 75 MCG PO (05:39)
[2024-08-10 06:00] VITALS: BMI 27.3
[2024-08-10] MEDS: DUONEB 3 ML INH ×4 (07:49→19:12)
[2024-08-10] MEDS: PULMICORT 0.5 MG INH ×2 (07:58→19:12)
[2024-08-10 08:12] LABS: Glucose - Point of Care 133 mg/dl (70-99)
[2024-08-10] MEDS: NOVOLOG FLEXPEN-MODERATE RESISTANCE SC ×2 (08:19→12:37)
[2024-08-10] MEDS: SINGULAIR 10 MG PO (08:21)
[2024-08-10] MEDS: PAXIL 10 MG PO (08:21)
[2024-08-10] MEDS: GLUCOPHAGE 1000 MG PO ×2 (08:21→17:11)
[2024-08-10] MEDS: MUCINEX 600 MG PO ×2 (08:21→21:28)
[2024-08-10] MEDS: PEPCID 20 MG PO ×2 (08:21→21:27)
[2024-08-10] MEDS: LANTUS 0.08 UNITS SC ×2 (08:22→23:21)
[2024-08-10 08:25] VITALS: BP 146/89
[2024-08-10 09:22] LABS: % Basophils 0.1 % (0-2); % Immature Granulocytes 0.7 % (0-0.5); % Lymphocytes 12.2 % (20.5-51.1); % Monocytes 4.4 % (1.7-9.3); % Neutrophils 82.6 % (42.2-75.2); Absolute Immature Granulocytes 0.1 10^3/uL (0-0.05); Absolute Lymphocytes 1.2 10^3/uL (1.2-3.4); Absolute Monocytes 0.4 10^3/uL (0.1-0.6); Absolute Neutrophils 7.9 10^3/uL (1.4-6.5); Hematocrit 42.6 % (39.0-52.0); Hemoglobin 14.7 g/dL (13.0-18.0); Mean Corp Hgb Conc. 34.5 g/dL (33.0-37.0); Mean Corpuscular Hgb 30.7 pg (27.0-31.0); Mean Corpuscular Volume 88.9 fL (80.0-94.0); Mean Platelet Volume 9.4 fL (7.4-10.4); Nucleated Red Blood Cells % 0 % (-); Platelet Count 303 10^3/uL (130-400); Red Blood Cell Count 4.79 10^6/uL (4.70-6.10); Red Cell Dist. Width 13.4 % (11.5-14.5); White Blood Cell Count 9.6 10^3/uL (4.8-10.8)
[2024-08-10 09:54] LABS: Blood Urea Nitrogen 22 mg/dl (9-20); Calcium 9.9 mg/dl (8.4-10.2); Carbon Dioxide 26 mmol/L (22-30); Chloride 101 mmol/L (98-107); Estimated Creatinine Clearance 93 ml/min; Glucose 141 mg/dl (70-99); Potassium 4.7 mmol/L (3.5-5.1); Sodium 142 mmol/L (135-145); eGFR > 60.00
[2024-08-10] MEDS: ZITHROMAX 500 MG PO (11:56)
[2024-08-10 12:24] LABS: Glucose - Point of Care 134 mg/dl (70-99)
--- NOTE | 2024-08-10 14:25 | W.PN.HOSP.TC ---
Today's Communication/Plan
-
Continue IV steroid and DuoNebs
Escalate Symbicort to Trelegy at discharge. Trelegy nonformulary here
Assessment / Plan
Assessment / Plan
#COPD exacerbation +/- asthma
-Patient with Gold D COPD; for exacerbations with hospitalizations in last year
-No recent PFTs in the EMR; patient states he is a non-smoker for life
-States he did have a lot of secondhand smoke exposure as a child from his parents
-States he has never had an alpha-1 antitrypsin level to his knowledge
-Home medications include Symbicort twice daily, states he is compliant
-Has been stable on room air; still wheezy on exam; on steroids and bronchodilator
Plan
-Continue with IV steroid regimen, plan for oral prednisone at discharge
-Continue with DuoNebs every 4 hours and as needed
-Plan to escalate Symbicort to Trelegy, will need to ensure covered by insurance
-Monitor respiratory status clinically
-Order alpha-1 antitrypsin level
#T2DM
-Well-controlled, A1c 6% in June, no microvascular complications
-Home medications include Lantus and metformin
-Started on ISS with Accu-Cheks here
#Hypothyroidism
-Unclear etiology, Home meds include levothyroxine
-No signs or symptoms of thyroid dysfunction at this time
#Anxiety
-Stable on paroxetine
DVT prophylaxis: Lovenox
Diet: Carbohydrate controlled
CODE STATUS: Full code
Anticipated Discharge: Within 24 hours
Subjective/Interval History
-
Date of Service: August 10, 2024
Seen and examined at the bedside. No acute events overnight. AFVSS on room air this morning
States he feels better. Still wheezy and mild short of breath.
Denies chest pain, fevers or chills, GI upset, urinary issues, bleeding or bruising, paresthesias or weakness
Objective Data
-
Labs:
Laboratory Results
08/10/24
08:56
WBC 9.6
Hgb 14.7
Hct 42.6
Plt Count 303
Sodium 142
Potassium 4.7
Chloride 101
Carbon Dioxide 26
BUN 22 H
Creatinine 0.8
Glucose 141 H
Calcium 9.9
Vital Signs:
Vital Signs
Temp Pulse Resp BP Pulse Ox
98.4 F 73 15 146/89 94
08/10/24 08:25 08/10/24 11:09 08/10/24 11:09 08/10/24 08:25 08/10/24 11:09
I&O
08/09/24 08/10/24 08/11/24
06:59 06:59 06:59
Intake Total 480 / 480
Balance 480 / 480
Review of Systems
-
History Source: Patient
All other systems: Reviewed and negative
Physical Exam
-
General: Well Nourished, No Apparent Distress and Comfortable
HEENT: Normocephalic, Atraumatic, Moist Mucous Membranes and Anicteric
Respiratory: Wheezes (And expiratory), Non Labored Respirations and Other (Increased E/I ratio); Negative Rales, Rhonchi or Accessory Resp Muscle Use
Cardiac: Regular Rhythm and S1/S2; Negative Murmur, Rub or Gallop
GI: Soft, Nontender, Nondistended and Normal Bowel Sounds
Musculoskeletal: No Clubbing, No Cyanosis and No Edema
Skin: Warm and Dry; Negative Rash
Neuro: AO x 3, Nonfocal/Grossly Intact and Central Nerve's Intact
Psych: Calm
Data Reviewed
-
Labs: Labs Reviewed by me and Discussed with Patient
[2024-08-10 15:57] VITALS: BP 130/80
[2024-08-10 17:06] LABS: Glucose - Point of Care 202 mg/dl (70-99)
[2024-08-10] MEDS: NOVOLOG FLEXPEN-MODERATE RESISTANCE 3 UNITS SC (17:12)
--- NOTE | 2024-08-10 17:12 | CM ---
Alert awake oriented patient who lives with his Mckayla who lives in a 2 story home with 2 step to enter and 11 steps to bed and bathroom. He is independent in driving and in all activities of daily living.He was offered VN he declined need.He
has a nebulizer.
No VN hx / No SNF history
Pharmacy [facility]
PCP DR Sheriff
PLAN Home Declined VN
[2024-08-10 23:00] VITALS: BP 159/91
[2024-08-10 23:23] LABS: Glucose - Point of Care 149 mg/dl (70-99)
[2024-08-11] MEDS: DECADRON 4 MG IV ×2 (03:08→10:30)
[2024-08-11] MEDS: SYNTHROID 75 MCG PO (05:25)
[2024-08-11 06:00] VITALS: BMI 26.9
[2024-08-11] MEDS: PULMICORT 0.5 MG INH (07:25)
[2024-08-11] MEDS: DUONEB 3 ML INH ×2 (07:25→11:35)
[2024-08-11 07:43] LABS: Glucose - Point of Care 120 mg/dl (70-99)
[2024-08-11 07:45] VITALS: BP 144/81
[2024-08-11] MEDS: NOVOLOG FLEXPEN-MODERATE RESISTANCE SC (08:00)
[2024-08-11] MEDS: LANTUS 0.08 UNITS SC (08:20)
[2024-08-11] MEDS: SINGULAIR 10 MG PO (08:21)
[2024-08-11] MEDS: PEPCID 20 MG PO (08:21)
[2024-08-11] MEDS: PAXIL 10 MG PO (08:21)
[2024-08-11] MEDS: GLUCOPHAGE 1000 MG PO (08:21)
[2024-08-11] MEDS: MUCINEX 600 MG PO (08:21)
--- NOTE | 2024-08-11 11:23 | W.PN.HOSP.TC ---
Addendum entered and electronically signed by Doyle Bernard DO 08/14/24 14:49:
CDI clarification: Patient with mixed COPD/asthma, difficult to differentiate but likely with component of acute asthma exacerbation that resolved prior to discharge
Original Note:
Today's Communication/Plan
-
Luong evaluation for Trelegy
Prednisone taper at discharge
Discharge today
Assessment / Plan
Assessment / Plan
#COPD exacerbation
-Patient with Gold D COPD; for exacerbations with hospitalizations in last year
-No recent PFTs in the EMR; patient states he is a non-smoker for life
-States he did have a lot of secondhand smoke exposure as a child from his parents
-States he has never had an alpha-1 antitrypsin level to his knowledge
-Home medications include Symbicort twice daily, states he is compliant
-Has been stable on room air; wheezing improved
Plan
-Continue with IV steroid regimen, plan for oral prednisone at discharge
-Continue with DuoNebs every 4 hours and as needed
-Plan to escalate Symbicort to Trelegy, will need to ensure covered by insurance
-Monitor respiratory status clinically
-Ordered alpha-1 antitrypsin level
#T2DM
-Well-controlled, A1c 6% in June, no microvascular complications
-Home medications include Lantus and metformin
-Currently on ISS with Accu-Cheks
#Hypothyroidism
-Unclear etiology, Home meds include levothyroxine
-No signs or symptoms of thyroid dysfunction at this time
#Anxiety
-Stable on paroxetine
DVT prophylaxis: Lovenox
Diet: Carbohydrate controlled
CODE STATUS: Full code
Anticipated Discharge: Today
Subjective/Interval History
-
Date of Service: August 11, 2024
Seen and examined at bedside. No acute vents overnight. AFVSS this morning.
He states he is bored, ready to leave the hospital. Feels his wheezing is improved, states he always has a trace amount present
Denies chest pain, dyspnea, fevers or chills, GI issues, urinary issues, bleeding or bruising, paresthesias or weakness
Objective Data
-
Vital Signs:
Vital Signs
Temp Pulse Resp BP Pulse Ox
97.8 F 65 18 144/81 95
08/11/24 07:45 08/11/24 07:45 08/11/24 07:45 08/11/24 07:45 08/11/24 07:45
I&O
08/10/24 08/11/24 08/12/24
06:59 06:59 06:59
Intake Total 480 / 480 360 / 360
Balance 480 / 480 360 / 360
Review of Systems
-
History Source: Patient
All other systems: Reviewed and negative
Physical Exam
-
General: Well Nourished, No Apparent Distress and Comfortable
HEENT: Normocephalic, Atraumatic and Moist Mucous Membranes
Respiratory: Wheezes (Discrete, end expiratory though improved) and Non Labored Respirations; Negative Rales, Rhonchi or Accessory Resp Muscle Use
Cardiac: Regular Rhythm and S1/S2; Negative Murmur, Rub or Gallop
GI: Soft, Nontender, Nondistended and Normal Bowel Sounds
Musculoskeletal: No Clubbing, No Edema and Normal Gait & Station
Skin: Warm and Dry; Negative Rash
Neuro: AO x 3, Nonfocal/Grossly Intact and Central Nerve's Intact
Psych: Calm
Data Reviewed
-
Labs: Discussed with Patient
--- NOTE | 2024-08-11 11:36 | W.DCSUMMARY ---
Discharge Summary
Discharge Data
Date of Admission: 08/09/24
Date of Discharge: 08/11/24
-
Pending Results: Yes
Additional Pending Results:
Alpha-1 antitrypsin level
Hospital Course
69-year-old male with COPD/asthma, bronchiectasis, pulmonary hypertension, hypothyroidism, T2DM that presented with COPD exacerbation. Noted to have 4+ exacerbations of COPD with hospitalization in the last year, qualifying as Gold class D disease.
Was started on steroid regimen with scheduled and as needed bronchodilators. Never required supplemental oxygen, bronchospasm improved with these interventions. Mentions that he has no previous smoking history (outside of secondhand exposure from
his parents as a child). Unclear etiology for his COPD, sent alpha-1 antitrypsin goals for potential panacinar emphysema.
Due to his frequent hospitalizations, attempt to start Trelegy at discharge. Cost may be an issue, if Trelegy not affordable advised him to continue equivalent regimen with Symbicort and Incruse Ellipta. Should have follow-up with primary
plastic sewer for repeat PFTs. Provided pulmonology referral if needed. Provided prednisone taper 40 mg x 3 days / 30 mg x 3 days / 20 mg x 3 days / 10 mg times
Discharge Plan
-
Patient Disposition: Home (Routine Discharge)
Discharge Diagnosis/Procedures: COPD exacerbation
Condition: Good
Diet: No restrictions
Activity: As tolerated
Driving Restrictions: As prior to admission
Bathing Restrictions: None
Blood Work: Alpha 1 antitrypsin level (family doctor will need to obtain results from your hospital stay)
Activity Restrictions/Additional Instructions:
After discharge from the hospital please schedule follow-up with family doctor within 7 days
Also schedule follow-up appointment with your plastic sewer. A pulmonology referral has been provided in the event that you need 1.
Start Trelegy Ellipta if affordable with your current insurance. If it is not, continue Symbicort as prescribed until you see your plastic sewer
Instructions: Exacerbation of COPD
Referrals:
Arlyn Sheriff PA-C [Family Provider] -
Bishnu Ugalde MD [Active] - in one week
Additional Discharge Medication Instructions: If insurance provides Trelegy Ellipta at affordable anand did start using this once daily
If Trelegy is NOT affordable then continue with Symbicort and Incruse Ellipta as previously prescribed
Prescriptions:
New
ipratropium-albuterol 0.5 mg-3 mg(2.5 mg base)/3 mL Solution For Nebulization
3 ml inhalation R QID 30 Days Qty: 90 0RF
Trelegy Ellipta 200-62.5-25 mcg blister with device
1 inh inhalation Q24H Qty: 60 0RF
prednisone 10 mg tablet
See Taper PO DIRECTED Qty: 30 0RF
Taper: Prednisone DC Starting at 40 mg daily
40 mg Daily for 3 Days and 0 Hour
30 mg Daily for 3 Days and 0 Hour
20 mg Daily for 3 Days and 0 Hour
10 mg Daily for 3 Days and 0 Hour
(DME) nebulizers [AeroEclipse XL Nebulizer] Misc
See Rx Instructions .Route Qty: 1 0RF
Rx Instructions:
As directed
Continued
paroxetine HCl 10 MG tablet
10 mg PO DAILY
multivitamin with folic acid [Tab-A-Grayson] 1 TABLET tablet
1 tab PO DAILY
montelukast 10 MG tablet
10 mg PO DAILY
metformin 1,000 mg Tablet
1,000 mg PO BID
albuterol sulfate 90 mcg/actuation Hfa Aerosol Inhaler
2 puff INHALATION R Q4HPRN PRN (Reason: sob)
fluticasone propionate 50 mcg/actuation Alicia,Suspension
2 spray INTRANASAL DAILY
budesonide-formoterol [Symbicort] 160-4.5 mcg/actuation Hfa Aerosol Inhaler
2 puff INHALATION R BID
Patient Comments:
08/09/24- patient buys from [facility]
insulin glargine [Lantus Solostar U-100 Insulin] 100 unit/mL (3 mL) Insulin Pen
8 unit SC BID
Incruse Ellipta 62.5 mcg/actuation Blister With Device
1 inh INHALATION R DAILY
levothyroxine [Synthroid] 75 mcg Tablet
75 mcg PO DAILY
omega 7-vmr-dqy-fish oil [Fish Oil] 1,200 (144-216) mg Capsule
2 cap PO DAILY
guaifenesin 600 mg Tablet Extended Release 12hr
600 mg PO Q12 Qty: 14 0RF
famotidine [Pepcid] 20 mg Tablet
20 mg PO BID
Discharge Orders:
Discharge Patient (As Directed); Ordered 08/11/24
Ordered By: Doyle Bernard
Discharge Date and Time
Print Language: YAKUT
[2024-08-11 11:47] LABS: Glucose - Point of Care 124 mg/dl (70-99)
--- NOTE | 2024-08-11 11:56 | PTCARENOTE ---
Rn Flow- patient requesting work note
[2024-08-11 11:57] VITALS: BP 146/79
--- NOTE | 2024-08-11 12:00 | CM ---
Addendum entered by Marley Rodriguez 08/11/24 12:04:
Correction- call with [facility] not [facility]
Original Note:
CM consulted for med pricing
Call with [facility] [employer] [phone]
Copy of Part D placed on chart
Trelegy 200/62.5/25 mcg QD
[facility] days [facility]145.96
30 day at preferred provider [facility]- $124.16
90 day mail order- $375.98
Costs provided to pt bedside
He is well versed in med pricing and shopping
He receives some of his meds from [facility] and has looked into changing Part D plan
Discharge order noted
No dc needs noted
Plans to drive self home
IMM remains valid from 08/09
Discharge Disposition- home, no needs
[2024-08-11] MEDS: FLUAD (65 yr+) 2024-2025 FORMULA 0.5 ML IM (12:20)
--- NOTE | 2024-08-12 11:25 | PN.CDI ---
CDI
- -
CDI:
Physician Documentation Request
Admit Date: 08/09/24 13:34
Dear Doctor Marco Antonio,
H&P: 'Acute Asthma / COPD Exacerbation'
08/10 Hospitalist PN: 'COPD exacerbation +/- asthma
-Patient with Gold D COPD; for exacerbations with hospitalizations in last year'
The diagnosis of asthma was documented on 08/09-08/10, but is not consistently noted in subsequent documentation.
Please clarify the following:
____ - Asthma exacerbation was present on admission and is now resolved.
____ - Asthma exacerbation was present on admission and is still being monitored, evaluated or treated
____ - Asthma exacerbation was ruled out
____ - Asthma exacerbation is still a likely, suspected, probable diagnosis
____ - Other
____ - Unable to determine
Use of terms such as suspected, likely, concern for, or probable (associated with a specific diagnosis that is being evaluated, monitored, or treated as if it exists) are acceptable and can be coded in the inpatient setting, when documented at the
time of discharge.
Thank you,
Kamilla Benoit RN, BSN
CDI Specialist
Available via [place] text
Please use your independent medical judgment in providing your response.
[2024-08-13 09:16] LABS: Alpha-1-Antitrypsin 143 mg/dL (90-200)
== END 2024-08-11 12:37 | disposition home or self-care (01) | DRG 202 ==
LOC: 4 EAST ACU 13:34
PROVIDERS: Physician Assistant Medical; ADMITTING PHYSICIAN Internal Medicine; ATTENDING PHYSICIAN Internal Medicine; EMERGENCY PHYSICIAN Emergency Medicine; FAMILY PHYSICIAN Student in an Organized Health Care Education/Training Program
PROC: 3E02340 Introduction of Influenza Vaccine into Muscle, Percutaneous Approach (ICD-10-PCS; 2024-08-11)
DX: J45.901 Unspecified asthma with (acute) exacerbation (principal); J44.1 Chronic obstructive pulmonary disease with (acute) exacerbation; I27.20 Pulmonary hypertension, unspecified; E03.9 Hypothyroidism, unspecified; E11.9 Type 2 diabetes mellitus without complications; E78.5 Hyperlipidemia, unspecified; F41.9 Anxiety disorder, unspecified; D72.10 Eosinophilia, unspecified; K21.9 Gastro-esophageal reflux disease without esophagitis; Z23 Encounter for immunization; Z79.899 Other long term (current) drug therapy; Z79.890 Hormone replacement therapy; Z79.84 Long term (current) use of oral hypoglycemic drugs; Z79.51 Long term (current) use of inhaled steroids; Z79.4 Long term (current) use of insulin; Z11.52 Encounter for screening for COVID-19; Z57.31 Occupational exposure to environmental tobacco smoke
CPT/HCPCS: 71046; 80048; 80053; 82103; 82962; 84145; 85025; 87070; 87205; 87502; 87811; 90662; 93005; 94640; 96361; 96374; 96375; 99285; G0008

== ENCOUNTER → 2024-09-04 06:26 | Outpatient (REF) | payer MEDICARE, OTHER, SELFPAY | LOC: RAD 06:26 | PROVIDERS: ATTENDING PHYSICIAN Nurse Practitioner Adult Health; FAMILY PHYSICIAN Student in an Organized Health Care Education/Training Program | DX: J45.40 Moderate persistent asthma, uncomplicated (principal) | CPT/HCPCS: 71046 ==

== ENCOUNTER 2025-01-30 18:03 | Inpatient (IN) | payer MEDICARE, OTHER, SELFPAY ==
[2025-01-30] VITALS (7 sets, daily range): BP systolic 137–186; BP diastolic 82–103; BMI 27.8
[2025-01-30 13:33] LABS: % Basophils 0.4 % (0-2); % Eosinophils 3.9 % (0-6); % Immature Granulocytes 0.2 % (0-0.5); % Lymphocytes 15.3 % (20.5-51.1); % Monocytes 6.6 % (1.7-9.3); % Neutrophils 73.6 % (42.2-75.2); Absolute Eosinophils 0.4 10^3/uL (0-0.7); Absolute Lymphocytes 1.5 10^3/uL (1.2-3.4); Absolute Monocytes 0.6 10^3/uL (0.1-0.6); Absolute Neutrophils 7.1 10^3/uL (1.4-6.5); Hematocrit 42.2 % (39.0-52.0); Hemoglobin 14.4 g/dL (13.0-18.0); Mean Corp Hgb Conc. 34.1 g/dL (33.0-37.0); Mean Corpuscular Hgb 31.4 pg (27.0-31.0); Mean Corpuscular Volume 92.1 fL (80.0-94.0); Mean Platelet Volume 8.8 fL (7.4-10.4); Nucleated Red Blood Cells % 0 % (-); Platelet Count 293 10^3/uL (130-400); Red Blood Cell Count 4.58 10^6/uL (4.70-6.10); Red Cell Dist. Width 13.8 % (11.5-14.5); White Blood Cell Count 9.6 10^3/uL (4.8-10.8)
[2025-01-30 13:43] LABS: ALT (SGPT) 36 U/L (0-50); AST (SGOT) 43 U/L (17-59); Albumin 4.1 g/dl (3.5-5.0); Alkaline Phosphatase 85 U/L (38-126); Blood Urea Nitrogen 17 mg/dl (9-20); Calcium 9.9 mg/dl (8.4-10.2); Carbon Dioxide 30 mmol/L (22-30); Chloride 105 mmol/L (98-107); Glucose 183 mg/dl (70-99); Potassium 5.2 mmol/L (3.5-5.1); Sodium 142 mmol/L (135-145); Total Bilirubin 0.5 mg/dl (0.2-1.3); Total Protein 6.4 g/dl (6.3-8.2); eGFR > 60.00
[2025-01-30 13:54] LABS: Troponin I < 0.012 ng/ml
[2025-01-30 14:00] LABS: COVID-19 Antigen Negative (Negative)
--- NOTE | 2025-01-30 17:23 | ED.GENMED ---
History of Present Illness
General
Chief Complaint: Breathing Problem
Source: patient
Time Seen by Provider: 01/30/25 17:10
History of Present Illness
History of Present Illness:
69-year-old male with past medical history of insulin-dependent diabetes and COPD presenting the ER for evaluation of gradually worsening cough and shortness of breath over the last couple of days but acutely worse today, attempted to use his
nebulizer but with minimal relief. Patient also took a few puffs of his inhaler but still noting continued short of breath, cough and a crackling sensation in his chest when attempting to breathe. He denies any chest pain, palpitations,
diaphoresis, any known or documented fevers. No known sick contacts, recent travel or recent antibiotics. Patient follows with utility worker driver, Dr. Perkins.
Past History
Past History
ED Past Medical History: Asthma, COPD, GERD and Other (Sinusitis)
ED Past Surgical History: Other (Sinus surgery)
Patient has exhibited threatening behavior?: No
PSI?: No
Social History
Tobacco: 2nd hand smoke exposure (As a child)
Alcohol: None
Drug: None
Personal:
Living: with family
Employment: Employed
Family History
Family History: Other (Noncontributory)
Review of Systems
Review of Systems
All Other Systems: ROS reviewed and negative except as documented in HPI and ROS
Phy Exam
Physical Exam
Physical Exam:
GENERAL: Alert , harsh wet sounding cough during the entirety of the exam, with some accessory muscle use
EYE: conjunctiva clear
NECK: Supple, no significant adenopathy.
ENT: o/p clr, mmm.
CARDIAC: Regular rate and rhythm
LUNGS: Diffuse rhonchi and wheezing, oxygen 87% on room air, placed on 2 L via nasal cannula satting between 93 and 95%
NEUROLOGICAL: Alert and oriented
SKIN: Warm and dry, skin intact.
MUSCULOSKELETAL: Venous stasis skin hyperpigmentation
PSYCH: Normal and appropriate interaction.
Scores
Heart Failure Risk
Heart Failure Risk Score: Not Applicable
Heart Score for Chest Pain Patients
STEMI patient?: Not applicable
Withdrawal Assessment of Alcohol
Withdrawal Assessment Completed?: Not applicable
Course
Orders/Labs/Results
Orders:
Orders
01/30/25 13:10
Electrocardiogram (*1) Urgent
Reason for Study: Other
Other Reason for Exam: Respiratory Distress
EKG- Treatment ONCE
CR Chest - 2 Views Urgent
Comment:
Reason For Exam: respiratory distress
01/30/25 13:13
COVID-19 Antigen Urgent
Source: Nasal Swab
Complete Blood Count/With Diff Urgent
Comprehensive Metabolic Panel Urgent
Troponin I Urgent
Influenza A+B Rapid Molecular Urgent
STONEY Source: Nasal Swab
Specimen Description:
01/30/25 15:11
Ipratropium/Albuterol Sulfate [Duoneb] 3 ml INH R NOW STA
01/30/25 17:13
CefTRIAXone [Rocephin] 2,000 mg IV NOW STA
Doxycycline [Vibramycin] 100 mg PO NOW STA
01/30/25 17:14
MethylPREDNISolone PF [Solu-Medrol Pf] 40 mg IV NOW STA
01/30/25 17:26
Ipratropium/Albuterol Sulfate [Duoneb] 3 ml .ROUTE .STK-MED ONE
01/30/25 17:27
Sterile Water [Sterile Water For Injection] 20 ml .ROUTE .STK-MED
01/30/25 17:44
Admit/Transfer Patient As Directed
Co-Sign Provider:
Level of Care: Inpatient admission
Assign to:: Telemetry
Physician / Group: andrade
Diagnosis: acute hypoxic respiratory failure
Reason for Telemetry: Other
Other Reason for Telemetry: hyperkalemia
Date to Stop Telemetry: 02/01/25
Time to Stop Telemetry: 11:00
Reason for Hospitalization: acute hypoxia
Expected length of stay greater than two midnights?: Yes
ELOS- Estimated Length of Stay in days: 3
I certify the patient meets the requirements for IP care: Yes
01/30/25 17:45
Code Status As Directed
Resuscitation Status: Full Code
PRN Pain Medication Management As Directed
May give lesser potent ordered pain med per pt: Yes
preference::
Protocol:: Medication orders for pain may be administered in a
manner that supports deferring to patient preference
when the pt is:
- Requesting an ordered lesser potent pain medication.
Least to most potent pain medications are defined
as: acetaminophen < NSAID < tramadol < opioids
(morphine, oxycodone, hydromorphone).
- Requesting a lesser dose of the same medication IF
ORDERED.
- Requesting a less intrusive route of administration
if both routes are prescribed by the provider (PO <
IV).
01/30/25 17:55
PRN Pain Medication Management As Directed
May give lesser potent ordered pain med per pt: Yes
preference::
Protocol:: Medication orders for pain may be administered in a
manner that supports deferring to patient preference
when the pt is:
- Requesting an ordered lesser potent pain medication.
Least to most potent pain medications are defined
as: acetaminophen < NSAID < tramadol < opioids
(morphine, oxycodone, hydromorphone).
- Requesting a lesser dose of the same medication IF
ORDERED.
- Requesting a less intrusive route of administration
if both routes are prescribed by the provider (PO <
IV).
02/01/25 11:00
DC Protocol for Telemetry ONCE
Abnormal Lab Results
01/30/25
13:13
RBC 4.58 L 10^6/uL
(4.70-6.10)
MCH 31.4 H pg
(27.0-31.0)
Absolute Neuts (auto) 7.1 H 10^3/uL
(1.4-6.5)
Lymphocytes % 15.3 L %
(20.5-51.1)
Potassium 5.2 H mmol/L
(3.5-5.1)
Glucose 183 H mg/dl
(70-99)
01/30/25 13:13
01/30/25 13:13
Vital Signs
Initial and Last Documented VS:
Initial Vital Signs
Temp Pulse Resp BP Pulse Ox
98.2 F 92 24 137/88 93
01/30/25 13:07 01/30/25 13:07 01/30/25 13:07 01/30/25 13:07 01/30/25 13:07
Last Documented Vital Signs
Temp Pulse Resp BP Pulse Ox
98.2 F 89 22 153/99 98
01/30/25 13:07 01/30/25 17:45 01/30/25 17:45 01/30/25 17:20 01/30/25 17:45
MDM/Problems Addressed
Differential Diagnosis Includes:
COPD exacerbation, pneumonia, COVID, flu, bronchitis
MDM/Problems Addressed:
69-year-old male presented to the ER for evaluation of gradually worsening cough and shortness of breath, symptoms acutely worse today and had only minimal improvement with 2 separate nebulizers and 2 set treatments with his inhaler. Hypoxic on
arrival and remains this way at time of my exam, placed on 2 L via nasal cannula. Chest x-ray performed shows a left basilar pneumonia. Patient's labs otherwise reassuring. Given his chronic medical conditions combined with hypoxia we will plan
for admission for IV antibiotics, continued nebulizer treatments and supportive care.
Chronic conditions affecting care: COPD
Acute Exacerbation and/or Progression of Chronic Illness: COPD
*Radiology
Radiology exam reviewed: preliminary read by ED provider (Left basilar pneumonia)
*Pulse Oximetry
Patient hypoxic: no
*Thermal Surfacing Machine Operator Interpretation
Rate: normal
Rhythm: sinus
*Critical Care Note
Total Time (30-74mins, 75-104mins- exclusive of procedures): Not Applicable
Data Reviewed
Review of Other/Old Records Reveals: Labs and Records
Patient Management
Discussion with other providers: Hospitalist
Escalation/DeEscalation of care consider admission/obs:
Hospitalist team accepts for continued evaluation and treatment
ED Attending Note
-
Portions of this chart may have been created with voice recognition software.� Occasional wrong word or��sound alike� substitutions may have occurred due to the inherent limitations of voice recognition software.
Discharge Plan
Departure
Patient Disposition: Admit
Date of Disposition: 01/30/25
Time of Disposition: 17:28
Presentation/result/management discussed w/ accepting MD/DO: Hospitalist
Discharge Problem:
COPD exacerbation, Pneumonia
Interventions
Interventions:
*Risk Screen - Suicide Last Done: 01/30/25 13:07
*Neglect/Abuse Screening Last Done: 01/30/25 13:07
*ED- Fall Risk Assessment Last Done: 01/30/25 13:07
*ED COVID-19 Vaccine History Last Done: 01/30/25 17:38
ED- Cardiac Assessment Last Done: 01/30/25 17:41
ED- Pulmonary Assessment Last Done: 01/30/25 17:41
--- NOTE | 2025-01-30 17:26 | HPS.HSE ---
Addendum entered and electronically signed by Andreia Lemus DO 01/30/25 18:42:
I saw and examined the patient. I reviewed the patient at length with Jazmín and agree with her history and physical and assessment and plan of care as per below.
Patient is a 69-year-old gentleman with past medical history significant for insulin-dependent diabetes and COPD, not on home oxygen, he sees Dr. Perkins outpatient and uses albuterol inhalers as needed. He has been having worsening cough shortness
of breath over the past few days and became acutely worse today. Use of nebulizer several times yesterday with very little relief.
In the ED his sodium 142, potassium 5.2, glucose 183,Chest x-ray shows a left basilar pneumonia
VS:
Oxygen saturation was 88% on room air, requiring 4 L of O2 per nasal cannula to maintain oxygen 94%
PE
Lungs: decreased breath sounds bilaterally, Rales in by lateral bases, left upper and mid lung has rhonchi
Cardiovascular regular rate and rhythm, distant heart sounds
Abd soft nt/nd
Impression/POC
69-year-old gentleman with past medical history of COPD being admitted to hospital for left basilar pneumonia with COPD exacerbation
I agree with the plan of care as below
-continuing IV steroids, 3 times a day and wean as appropriate, pulmonary consultation
#K 5.2
-IVF, repeat labs in am, EKG without changes
Original Note:
Family Physician
-
Family Physician: Arlyn Sheriff PA-C
Chief Complaint
-
sob, cough
History of Present Illness
69-year-old male with past medical history of insulin-dependent diabetes and COPD presenting the ER for evaluation of gradually worsening cough and shortness of breath over the last couple of days but acutely worse today. he was having productive
cough with yellowish sputum but no production today. he used his nebulizer yesterday 4 times with very little relief in his symptoms. stated sob worse with exertion. he had fever but never measured. denied chills, chest pain. denied LAU, dizzy or
syncope. denied abdominal pain,n,v,d. denied dysuria or hematuria.
upon arrival chest xay with pneumonia. 80 on RA. requiring 2l of oxygen. Patient received dose of ceftriaxone, Doxy, nebulizer, Solu-Medrol in ER. Admitted for further management
Medical History
Past Medical History
Past Medical History: Reports Other
Additional Past Medical History:
Type 2 diabetes
Asthma
Anxiety
Hypothyroidism
GERD
Bronchiectasis
Hyperlipidemia
Chronic sinusitis
COPD
Pulm hypertension
Peripheral eosinophilia
Past Surgical History: Reports Other
Additional Past Surgical History:
Cataract and sinus surgery
Social History
Tobacco: Non-smoker
Alcohol: None
Employment: Employed
Family History
Family History: Not pertinent
Allergies / Home Medications
Allergies reflects when Allergies were last updated in [facility].
Home Medications with original date entered in [facility]
Allergy/Medication List:
Allergies
Allergy/AdvReac Type Severity Reaction Status Date / Time
grass pollen-perennial rye, Allergy Shortness Verified 01/30/25 13:06
standar of Breath
tree and shrub pollen Allergy PINE Verified 01/30/25 13:06
TREES-SHORTNESS
OF BREATH
Home Medications
paroxetine HCl 10 mg tablet 10 mg PO DAILY Mental Health 01/27/13
multivitamin with folic acid 400 mcg tablet (Tab-A-Grayson) 1 tab PO DAILY Supplement 11/10/18
montelukast 10 mg tablet 10 mg PO DAILY Lung/breathing issues 09/07/19
albuterol sulfate 90 mcg/actuation aerosol inhaler 2 puff inhalation R Q4HPRN PRN sob 11/08/23
budesonide-formoterol HFA 160 mcg-4.5 mcg/actuation aerosol inhaler (Symbicort) 2 puff inhalation R BID Lung/Breathing Issues 11/08/23
fluticasone propionate 50 mcg/actuation nasal spray,suspension 2 spray intranasal DAILY Allergies 11/08/23
insulin glargine 100 unit/mL (3 mL) subcutaneous pen (Lantus Solostar U-100 Insulin) 8 unit SC BID Diabetes 11/08/23
metformin 1,000 mg tablet 1,000 mg PO BID Diabetes 11/08/23
umeclidinium 62.5 mcg/actuation blister powder for inhalation (Incruse Ellipta) 1 inh inhalation R DAILY Lung/Breathing Issues 11/08/23
levothyroxine 75 mcg tablet (Synthroid) 75 mcg PO DAILY Thyroid 03/12/24
omega 6-tvn-jht-fish oil 1,200 mg (144 mg-216 mg) capsule (Fish Oil) 2 cap PO DAILY Supplement 03/12/24
guaifenesin 600 mg tablet, extended release 12 hr 600 mg PO Q12 #14 tabs 07/01/24
famotidine 20 mg tablet (Pepcid) 20 mg PO BID 08/09/24
fluticasone fur. 200 mcg-umeclid 62.5 mcg-vilant 25 mcg inhalat.powder (Trelegy Ellipta) 1 inh inhalation Q24H Lung/breathing issues #60 ea 08/11/24
ipratropium 0.5 mg-albuterol 3 mg (2.5 mg base)/3 mL nebulization soln 3 ml inhalation R QID Lung/breathing issues 1 month #90 mL 08/11/24
nebulizers (AeroEclipse XL Nebulizer) #1 ea 08/11/24
prednisone 10 mg tablet See Taper PO DIRECTED COPD #30 tabs 08/11/24
Review of Systems
-
Constitutional: Reports Fever
EENT: Reports No Symptoms
Respiratory: Reports Cough and Trouble Breathing
Cardiac: Reports No Symptoms
Abdomen/GI: Reports No Symptoms
: Reports No Symptoms
Musculoskeletal: Reports No Symptoms
Skin: Reports No Symptoms
Neurological: Reports No Symptoms
Endocrine: Reports No Symptoms
Hematologic/Lymphatic: Reports No Symptoms
Psych: Reports No Symptoms
Physical Exam
Vital Signs
Vital Signs
Temp Pulse Resp BP Pulse Ox
98.2 F 85 20 153/99 94
01/30/25 13:07 01/30/25 17:21 01/30/25 17:23 01/30/25 17:20 01/30/25 17:21
Physical Exam
General: Well Developed, Well Nourished and No Apparent Distress
HEENT: NormoCephalic, Moist mucous membranes and Atraumatic
Respiratory: Wheezes and Rales
Cardiac: S1/S2 and Regular Rhythm; No Murmur or Rub
GI: Soft, Non Tender, Non Distended and Normal Bowel Sounds; No Organomegaly
Rectal: Deferred by Provider
Musculoskeletal: No Clubbing, No Cyanosis and No Edema
Skin: No Rash
Neuro: AO x 3 and Nonfocal/grossly intact
Psych: Calm
Laboratory Results
-
01/30/25 13:13
01/30/25 13:13
Laboratory Results
Total Bilirubin 0.5 mg/dl (0.2-1.3) 01/30/25 13:13
AST 43 U/L (17-59) 01/30/25 13:13
ALT 36 U/L (0-50) 01/30/25 13:13
Alkaline Phosphatase 85 U/L (38-126) 01/30/25 13:13
Troponin I < 0.012 ng/ml 01/30/25 13:13
Data Reviewed
-
Diagnostic Radiology: Report Reviewed by me
Lab Data: Labs Reviewed by me
Impression/Plan
-
# Acute hypoxic respiratory failure likely from pneumonia/COPD exacerbation
- 87 on room air
- COVID-negative
- Chest x-ray with left basilar pneumonia
- Flu negative
- Ceftriaxone and Doxy continued
- Solu-Medrol in ER
-Steroids continue
- Nebs as needed for short of breath and wheezing
- Continue supplemental oxygen to keep sat greater than 92
- Wean as tolerated
- Singular continued
# Hyperkalemia likely dehydration
- K5.2
-normal saline x1 bag
-bmp in am
#T2DM
-CHO diet
-Home medications include Lantus and metformin
-Currently on ISS with Accu-Cheks
#Hypothyroidism
-home meds include levothyroxine
#Anxiety
-Stable on paroxetine
# Hyperlipidemia
- Statin continued
DVT prophylaxis: Lovenox
Diet: Carbohydrate controlled
CODE STATUS: Full code
[2025-01-30] MEDS: DUONEB 3 ML INH ×2 (17:31→19:57)
[2025-01-30] MEDS: ROCEPHIN 2000 MG IV (17:33)
[2025-01-30] MEDS: SOLU-MEDROL PF 40 MG IV (17:36)
[2025-01-30] MEDS: VIBRAMYCIN 100 MG PO (17:37)
[2025-01-30] MEDS: PULMICORT 0.5 MG INH (19:57)
[2025-01-30] MEDS: SYMBICORT 160/4.5 MCG INHALER 2 PUFF INH (19:57)
[2025-01-30] MEDS: NSS 1000 IV (20:09)
[2025-01-30] MEDS: MUCINEX 1200 MG PO (20:10)
[2025-01-30] MEDS: GLUCOPHAGE 1000 MG PO (20:10)
[2025-01-30 21:49] LABS: Glucose - Point of Care 205 mg/dl (70-99)
[2025-01-30] MEDS: LANTUS 0.08 UNITS SC (22:04)
[2025-01-30] MEDS: PEPCID 20 MG PO (22:04)
[2025-01-30] MEDS: CRESTOR 10 MG PO (22:05)
[2025-01-30] MEDS: TESSALON PERLES 100 MG PO (22:05)
[2025-01-31] MEDS: DECADRON 6 MG IV ×3 (01:17→18:04)
--- NOTE | 2025-01-31 01:47 | PTCARENOTE ---
Receive pt from ER earlier last evening. Pt alert oriented X3. Appears in resp distress with dyspnea at rest/dyspnea on exertion, orthopnea, 95-96% on 2L NC. Pt assisted X1 to bed. Pt oriented to the room, call foely within reach. Pt has also a harsh
frequent cough with slight yellowish sputum that was sent to Lab. Pt on NSR on telemonitor. VSS (T=98.4, HR=88, RR=22, QK=360/90). Pt was given Duoneb/Inh, Plumicort and Symbicort. Pt was also given Mucinex, but continues to have frequent cough.
[facility] made aware, ordered Tessalon PRN. Tessalon given as per order. Pt reports a much relief, breathing less labored. Pt reting comfortably in bed. Will follow.
[2025-01-31 03:55] VITALS: BP 130/81
[2025-01-31] MEDS: DUONEB 3 ML INH ×5 (04:34→19:22)
[2025-01-31] MEDS: SYNTHROID 75 MCG PO (05:05)
[2025-01-31 06:39] LABS: Blood Urea Nitrogen 19 mg/dl (9-20); Calcium 9.9 mg/dl (8.4-10.2); Carbon Dioxide 28 mmol/L (22-30); Chloride 104 mmol/L (98-107); Estimated Creatinine Clearance 103 ml/min; Glucose 152 mg/dl (70-99); Potassium 4.9 mmol/L (3.5-5.1); Sodium 141 mmol/L (135-145); eGFR > 60.00
--- NOTE | 2025-01-31 07:16 | CON.PUL ---
Consultation
Consultation Request
Date/Time Consultation Requested: 01/30/2025
Date/Time Consultation Performed: 01/31/2025
Requesting Provider: Jazmín Conklin
Performing Provider: Christina Garay
Reason for Consultation: Shortness of breath
Medical History
-
Chief Complaint: Shortness of breath
History of Present Illness:
Patient is a very pleasant 69-year-old gentleman with known history of moderate persistent asthma with eosinophilia. Patient reportedly started feeling poorly over the last few days with increased cough, wheezing and shortness of breath. Despite
his inhaler therapy at home, his symptoms continue to worsen. He was brought to the emergency room for further workup. Imaging was suggestive of pneumonia in addition to clinical presentation of asthma exacerbation. He was admitted to the
hospital and pulmonary consultation was requested for further input.
Additional Past Medical History:
Type 2 diabetes
Asthma
Anxiety
Hypothyroidism
GERD
Bronchiectasis
Hyperlipidemia
Chronic sinusitis
COPD
Pulm hypertension
Peripheral eosinophilia
Past Surgical History: Reports Other
Additional Past Surgical History:
Cataract and sinus surgery
Social History
Tobacco: Non-smoker
Alcohol: None
Employment: Employed
Family History
Family History: Not pertinent
Allergies / Home Medications
Allergies / Home Medications
Allergies
Allergy/AdvReac Type Severity Reaction Status Date / Time
grass pollen-perennial rye, Allergy Shortness Verified 01/30/25 13:06
standar of Breath
tree and shrub pollen Allergy PINE Verified 01/30/25 13:06
TREES-SHORTNESS
OF BREATH
Home Medications
�Medication �Instructions �Recorded �Confirmed �Last Taken �Type
paroxetine HCl 10 mg tablet 10 mg PO DAILY Mental Health 01/27/13 01/30/25 01/30/25 History
multivitamin with folic acid 400 1 tab PO DAILY Supplement 11/10/18 01/30/25 01/30/25 History
mcg tablet (Tab-A-Grayson)
montelukast 10 mg tablet 10 mg PO DAILY Lung/breathing 09/07/19 01/30/25 01/30/25 History
issues
albuterol sulfate 90 mcg/actuation 1 puff inhalation R Q4HPRN PRN sob 11/08/23 01/30/25 01/30/25 History
aerosol inhaler
budesonide-formoterol HFA 160 2 puff inhalation R BID 11/08/23 01/30/25 01/30/25 History
mcg-4.5 mcg/actuation aerosol Lung/Breathing Issues
inhaler (Symbicort)
fluticasone propionate 50 2 spray intranasal DAILY Allergies 11/08/23 01/30/25 01/30/25 History
mcg/actuation nasal
spray,suspension
insulin glargine 100 unit/mL (3 8 unit SC BID Diabetes 11/08/23 01/30/25 01/30/25 History
mL) subcutaneous pen (Lantus
Solostar U-100 Insulin)
metformin 1,000 mg tablet 1,000 mg PO BID Diabetes 11/08/23 01/30/25 01/30/25 History
umeclidinium 62.5 mcg/actuation 1 inh inhalation R DAILY 11/08/23 01/30/25 01/30/25 History
blister powder for inhalation Lung/Breathing Issues
(Incruse Ellipta)
levothyroxine 75 mcg tablet 75 mcg PO DAILY Thyroid 03/12/24 01/30/25 01/30/25 History
(Synthroid)
omega 9-syz-rbb-fish oil 1,200 mg 2 cap PO DAILY Supplement 03/12/24 01/30/25 01/30/25 History
(144 mg-216 mg) capsule (Fish Oil)
famotidine 20 mg tablet (Pepcid) 20 mg PO BID 08/09/24 01/30/25 01/30/25 History
albuterol sulfate 0.63 mg/3 mL 0.63 mg inhalation R Q6HPRN PRN sob 01/30/25 01/30/25 01/30/25 History
solution for nebulization
budesonide 0.5 mg/2 mL suspension 0.5 mg inhalation R BID 01/30/25 01/30/25 01/30/25 History
for nebulization
dextromethorphan-guaifenesin 10 10 ml PO HSPRN PRN cough 01/30/25 01/30/25 01/28/25 History
mg-200 mg/5 mL oral liquid
loratadine 10 mg tablet 10 mg PO DAILY 01/30/25 01/30/25 01/30/25 History
rosuvastatin 10 mg tablet 10 mg PO HS 01/30/25 01/30/25 01/29/25 History
Review of Systems
-
Hematologic/Lymphatic: Other (All 14 systems reviewed and negative except as stated above in the history of present illness.)
Vitals / Labs / Diagnostic Testing
Vital Signs
Temp Pulse Resp BP Pulse Ox
98.0 F 60 18 130/81 94
01/31/25 03:55 01/31/25 04:39 01/31/25 04:39 01/31/25 03:55 01/31/25 04:39
Lab Data
01/30/25 13:13
01/31/25 05:17
Microbiology
01/30/25 13:13 Nasal Swab Influenza Types A & B (SHANTAL) - Final
Negative for Influenza A & B, NAAT
Negative results must be combined with clinical observations
and patient history.
Nucleic Acid Amplification test (NAAT)performed on the
[employer] platform.
Diagnostic Testing:
Physical Exam
-
HEENT: Normocephalic
Cardiovascular: S1/S2
Respiratory: Wheeze (Minimal end expiratory wheezing)
GI: Soft and Non Distended
Neurology: Awake and Alert
Skin: Warm
General: Comfortable
Assessment
-
#1. Left lower lobe pneumonia
-Agree with current treatment with ceftriaxone and doxycycline
-Legionella, strep antigen negative. Sputum cultures pending. Influenza and COVID-19 screen negative.
#2. Acute exacerbation of underlying moderate persistent asthma, T2-High variant with eosinophilia. Eosinophil count: 0-800 on different occasions. IgE 130 in 2018
-Patient has High T2 moderate persistent asthma with eosinophilia along with concomitant chronic bronchitis
-Continue DuoNebs scheduled 4 times daily, budesonide inhaler twice a day and steroids
-Continue antibiotics as ordered
-Continue montelukast 10 mg daily
-With his eosinophilia and recurrent exacerbations, patient is a candidate for biologic therapy, will discuss and pursue this as outpatient in the clinic
-Alternatively, can consider switching to higher potency inhaled steroids like Dulera. This can again be discussed and pursued as outpatient
#3. Lung nodules. 5-[address] in 2020
-This can be followed up as outpatient
Patient follows up with Dr. Perkins in pulmonary clinic and has an appointment in 1 week.
Total time spent on this consultation/encounter _62___ minutes which includes review of history, physical exam, medications, laboratory data, personal review of imaging, extensive review of outpatient records, discussion with care team and
respiratory therapy.
Data:
CXR 01/2025: Left basilar pneumonia
Spirometry on 03/25/2024 showing moderate COPD with post-BD FEV1: 66% / 2.12 L, and also mild restriction with post-BD FVC: 73% / 3.22 L.
PFT in February 2023 showed moderate COPD (post�BD FEV1: 77% / 2.54 L), with no evidence of restriction, and normal gas exchange capacity (DLco: 89%; DLco/VA: 95%)
ECHO 2012: Normal left ventricular size and systolic function. Left ventricular ejection
fraction is 60-65%. Normal regional wall motion. Mild concentric left
ventricular hypertrophy.
No prior study available for comparison.
CT CHEST 08/2021: 1. MODERATE to SEVERE CHRONIC BRONCHITIS in both lungs without definitive change from 04/13/2019.
2. Mild secretions in the trachea and both mainstem bronchi.
3. Mild amount of chronic peripheral endobronchial disease in the right middle lobe.
4. No CT evidence for bronchiectasis.
5. Moderate calcific atherosclerotic plaque in the coronary arteries
6. 5-6 mm lung nodules
[2025-01-31] MEDS: PULMICORT 0.5 MG INH ×2 (07:33→19:22)
[2025-01-31] MEDS: SYMBICORT 160/4.5 MCG INHALER 2 PUFF INH ×2 (07:33→19:22)
[2025-01-31 07:48] VITALS: BP 147/91
[2025-01-31 07:49] LABS: Glucose - Point of Care 148 mg/dl (70-99)
[2025-01-31] MEDS: SINGULAIR 10 MG PO (08:52)
[2025-01-31] MEDS: PAXIL 10 MG PO (08:52)
[2025-01-31] MEDS: MUCINEX 1200 MG PO ×2 (08:52→20:06)
[2025-01-31] MEDS: VIBRAMYCIN 100 MG PO ×2 (08:52→20:07)
[2025-01-31] MEDS: NOVOLOG FLEXPEN-LOW RESISTANCE SC (08:52)
[2025-01-31] MEDS: PEPCID 20 MG PO ×2 (08:52→20:07)
[2025-01-31] MEDS: GLUCOPHAGE 1000 MG PO ×2 (08:53→18:04)
[2025-01-31] MEDS: CLARITIN 10 MG PO (08:53)
[2025-01-31] MEDS: LANTUS 0.08 UNITS SC ×2 (08:53→22:06)
[2025-01-31] MEDS: TESSALON PERLES 100 MG PO (09:02)
[2025-01-31] MEDS: FLUSH (NSS) 2 FLUSH IV ×2 (09:04→18:03)
[2025-01-31 10:46] LABS: Glycohemoglobin (HgbA1c) 6.7 % (4.0-5.6)
[2025-01-31 11:00] VITALS: BP 142/86
--- NOTE | 2025-01-31 11:35 | CM ---
Met with patient to obtain information for assessment. Patient stated that he lives in a two story home with his spouse and three steps to enter. He described himself as independent with all ADLs, personal care, dressing and bathing. 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 Patient has two nebulizers, a walker, cane, w/c, that he
inherited from his mother in law but [facility]. He does not have o2. Patient has never had VN. He has not been to a SNF in the past.
Patient has a prescription plan and uses, [facility] in [place] for all of his medications.
His PCP is, Arlyn Zamudio.
Patient stated that physically he feels he is at baseline but is sob.
Plan: Case management will continue to follow and assist with discharge planning. Will watch for o2/VN needs.
[2025-01-31 12:07] LABS: Glucose - Point of Care 189 mg/dl (70-99)
--- NOTE | 2025-01-31 12:20 | W.PN.HOSP.TC ---
Addendum entered and electronically signed by Doyle Bernard DO 01/31/25 12:31:
#Community-acquired pneumonia
-Currently on IV ceftriaxone and doxycycline
-Continue with antibiotics for now
-Trend CBC and temperature curve
Original Note:
Today's Communication/Plan
-
Continue IV steroids and [id number]-[id number] bronchodilators
Consider outpatient initiation of biologic therapy
SpO2 goal 88 to 94%
Assessment / Plan
Assessment / Plan
#Acute hypoxemic respiratory failure
#Asthma/COPD overlap with exacerbation
#COPD/bronchiectasis
#Pulmonary hypertension (group 3)
-Patient with Gold D COPD; four exacerbations with hospitalizations in last year
-No recent PFTs in the EMR; patient states he is a non-smoker for life
-States he did have a lot of secondhand smoke exposure as a child from his parents
-On last hospital stay alpha 1 antitrypsin was checked, found to be normal
-Home medications include Symbicort twice daily, states he is compliant
-Required up to 4 L on arrival, currently on 2 L with SpO2 mid to high 90s
-Pulmonology following, recommendations appreciated
Plan
-Continue with IV steroid as ordered for now
-Continue with fglzf-wvf-ryivp bronchodilators
-Plan for outpatient initiation of biologic for asthma overlap
-Wean oxygen for SpO2 88 to 94%
#IDDM2
-Well-controlled, A1c 6% in June, no microvascular complications
-Home medications include Lantus and metformin
-Currently on ISS with Accu-Cheks
#Hypothyroidism
-Unclear etiology, Home meds include levothyroxine
-No signs or symptoms of thyroid dysfunction at this time
#Anxiety
-Stable on paroxetine
DVT prophylaxis: Lovenox
Diet: Carbohydrate controlled
CODE STATUS: Full code
Anticipated Discharge: 24 - 48 hours
Subjective/Interval History
-
Date of Service: January 31, 2025
Objective Data
-
Labs:
Laboratory Results
01/31/25
05:17
Sodium 141
Potassium 4.9
Chloride 104
Carbon Dioxide 28
BUN 19
Creatinine 0.7
Glucose 152 H
Calcium 9.9
Vital Signs:
Vital Signs
Temp Pulse Resp BP Pulse Ox
98.1 F 80 18 142/86 94
01/31/25 11:00 01/31/25 11:24 01/31/25 11:24 01/31/25 11:00 01/31/25 11:24
I&O
01/30/25 01/31/25 02/01/25
06:59 06:59 06:59
Intake Total 480 / 480
Output Total 150 / 150
Balance 330 / 330
[2025-01-31] MEDS: NOVOLOG FLEXPEN-LOW RESISTANCE 1 UNITS SC ×2 (12:44→18:04)
[2025-01-31 15:00] VITALS: BP 135/90
[2025-01-31 16:56] LABS: Glucose - Point of Care 154 mg/dl (70-99)
[2025-01-31] MEDS: ROCEPHIN 1000 MG IV (18:03)
[2025-01-31] MEDS: STERILE WATER FOR INJECTION 10 ML IV (18:03)
[2025-01-31 19:21] VITALS: BP 137/86
[2025-01-31 21:17] LABS: Glucose - Point of Care 135 mg/dl (70-99)
[2025-01-31] MEDS: CRESTOR 10 MG PO (22:06)
[2025-01-31 23:51] VITALS: BP 103/66
[2025-02-01] MEDS: DECADRON 6 MG IV ×2 (02:49→09:53)
[2025-02-01 03:57] VITALS: BP 126/67
[2025-02-01] MEDS: SYNTHROID 75 MCG PO (05:07)
[2025-02-01 06:55] VITALS: BP 134/86
[2025-02-01] MEDS: SYMBICORT 160/4.5 MCG INHALER 2 PUFF INH (07:22)
[2025-02-01] MEDS: DUONEB 3 ML INH ×2 (07:22→11:19)
[2025-02-01] MEDS: PULMICORT 0.5 MG INH (07:22)
[2025-02-01 08:05] LABS: Glucose - Point of Care 137 mg/dl (70-99)
[2025-02-01] MEDS: NOVOLOG FLEXPEN-LOW RESISTANCE SC (08:06)
[2025-02-01 08:25] LABS: % Basophils 0.1 % (0-2); % Immature Granulocytes 0.5 % (0-0.5); % Monocytes 3.5 % (1.7-9.3); % Neutrophils 88.9 % (42.2-75.2); Absolute Immature Granulocytes 0.1 10^3/uL (0-0.05); Absolute Lymphocytes 1.1 10^3/uL (1.2-3.4); Absolute Monocytes 0.5 10^3/uL (0.1-0.6); Absolute Neutrophils 13.6 10^3/uL (1.4-6.5); Hematocrit 40.6 % (39.0-52.0); Hemoglobin 13.6 g/dL (13.0-18.0); Mean Corp Hgb Conc. 33.5 g/dL (33.0-37.0); Mean Corpuscular Hgb 31.2 pg (27.0-31.0); Mean Corpuscular Volume 93.1 fL (80.0-94.0); Mean Platelet Volume 9.8 fL (7.4-10.4); Nucleated Red Blood Cells % 0 % (-); Platelet Count 347 10^3/uL (130-400); Red Blood Cell Count 4.36 10^6/uL (4.70-6.10); Red Cell Dist. Width 13.7 % (11.5-14.5); White Blood Cell Count 15.4 10^3/uL (4.8-10.8)
[2025-02-01 09:00] LABS: Blood Urea Nitrogen 28 mg/dl (9-20); Carbon Dioxide 26 mmol/L (22-30); Chloride 101 mmol/L (98-107); Estimated Creatinine Clearance 90 ml/min; Glucose 127 mg/dl (70-99); Potassium 5.2 mmol/L (3.5-5.1); Sodium 138 mmol/L (135-145); eGFR > 60.00
[2025-02-01] MEDS: MUCINEX 1200 MG PO (09:51)
[2025-02-01] MEDS: SINGULAIR 10 MG PO (09:52)
[2025-02-01] MEDS: CLARITIN 10 MG PO (09:52)
[2025-02-01] MEDS: PEPCID 20 MG PO (09:52)
[2025-02-01] MEDS: PAXIL 10 MG PO (09:52)
[2025-02-01] MEDS: GLUCOPHAGE 1000 MG PO (09:52)
[2025-02-01] MEDS: LANTUS 0.08 UNITS SC (09:52)
[2025-02-01] MEDS: VIBRAMYCIN 100 MG PO (09:52)
[2025-02-01 11:24] VITALS: BP 126/83
[2025-02-01 11:56] LABS: Glucose - Point of Care 157 mg/dl (70-99)
--- NOTE | 2025-02-01 12:14 | W.PN.HOSP.TC ---
Addendum entered and electronically signed by Young Osborn MD 02/02/25 08:12:
Acute hypoxic respiratory insufficiency only
Addendum entered and electronically signed by Young Osborn MD 02/01/25 14:28:
Discussed with pulmonary, patient is now feeling better. Will transition to p.o. steroids and antibiotics. Ambulated with respiratory therapy and oxygen stayed greater than 90%. Patient does not need home O2. Discharge today
Time of discharge 38 minutes
Original Note:
Today's Communication/Plan
-
Monitor vitals
See plan
Wean oxygen as tolerated
Continue with steroids, nebs
Continue antibiotics
Wean oxygen as tolerated
Assessment / Plan
Assessment / Plan
#Acute hypoxemic respiratory insufficiency
#Asthma/COPD overlap with exacerbation
#COPD/bronchiectasis
#Pulmonary hypertension (group 3)
-Patient with Gold D COPD; four exacerbations with hospitalizations in last year
-No recent PFTs in the EMR; patient states he is a non-smoker for life
-States he did have a lot of secondhand smoke exposure as a child from his parents
-On last hospital stay alpha 1 antitrypsin was checked, found to be normal
-Home medications include Symbicort twice daily, states he is compliant
-Required up to 4 L on arrival, currently on 2 L with SpO2 mid to high 90s
-Pulmonology following, recommendations appreciated
Plan
-Continue with IV steroid as ordered for now
-Continue with ozbog-rsf-qakkd bronchodilators
-Plan for outpatient initiation of biologic for asthma overlap
-Wean oxygen for SpO2 88 to 94%
#Community-acquired pneumonia
-Currently on IV ceftriaxone and doxycycline
-Continue with antibiotics for now
Mild hyperkalemia
Monitor
#IDDM2
-Well-controlled, A1c 6% in June, no microvascular complications
-Home medications include Lantus and metformin
-Currently on ISS with Accu-Cheks
#Hypothyroidism
-Unclear etiology, Home meds include levothyroxine
-No signs or symptoms of thyroid dysfunction at this time
#Anxiety
-Stable on paroxetine
DVT prophylaxis: Lovenox
CODE STATUS: Full code
Anticipated Discharge: 24 - 48 hours
Subjective/Interval History
-
Date of Service: February 01, 2025
Denies chest pain
Objective Data
-
Labs:
Laboratory Results
02/01/25
06:09
WBC 15.4 H
Hgb 13.6
Hct 40.6
Plt Count 347
Sodium 138
Potassium 5.2 H
Chloride 101
Carbon Dioxide 26
BUN 28 H
Creatinine 0.8
Glucose 127 H
Calcium 10.0
Vital Signs:
Vital Signs
Temp Pulse Resp BP Pulse Ox
98.3 F 68 16 134/86 92
02/01/25 06:55 02/01/25 11:19 02/01/25 11:19 02/01/25 06:55 02/01/25 09:20
I&O
01/31/25 02/01/25 02/02/25
06:59 06:59 06:59
Intake Total 480 / 480 240 / 240
Output Total 150 / 150
Balance 330 / 330 240 / 240
[2025-02-01] MEDS: NOVOLOG FLEXPEN-LOW RESISTANCE 1 UNITS SC (12:18)
--- NOTE | 2025-02-01 12:51 | PN.CDI ---
CDI
- -
CDI:
Physician Documentation Request
Admit Date: 01/30/25 18:03
Dear Doctor Anurag,
Please review the following and provide your response in the progress notes.
Clinical Indicators:
The diagnosis of acute hypoxic respiratory failure was documented on 4/6 PN but is not consistently noted in subsequent documentation.
- 6 PN 'Acute hypoxemic respiratory failure'
- 4 H&P 'Oxygen saturation was 88% on room air, requiring 4 L of O2 per nasal cannula to maintain oxygen 94%'
- 02/01 PN 'Acute hypoxemic respiratory insufficiency'
- per ER Physician 'presenting the ER for evaluation of gradually worsening cough and shortness of breath'
- 'some accessory muscle use'
Please clarify the following:
____ - Acute hypoxic respiratory failure was present on admission and is now resolved.
____ - Acute hypoxic respiratory failure was present on admission and is still being monitored, evaluated or treated
____ - Acute hypoxic respiratory failure was ruled out, acute hypoxic respiratory insufficiency only
____ - Other
Recognized standard criteria for respiratory failure includes:
(Source: [facility] Aug 2013)
ABGs (1 or more)
�PO2 <60 or RA SpO2 <91%
�PcO2 >50 and pH <7.35
�pO2 decrease or pcO2 increase by 10 mmHg from baseline if known Symptoms:
�Tachypnea, SOB, dyspnea
�Pallor or cyanosis
�Anxiety or restlessness
�Use of accessory muscles
�Retractions (grunting in newborns)
�Unable to speak in complete sentences
Supplemental O2 requirement of 40% (5LPM) or more Intubation is not required
Based on the above information and the recognized standard for respiratory failure could you please verify this diagnoses is still accurate and reflective of the patient�s condition to ensure quality of the medical record.
Please clarify in the Progress Notes:
�Respiratory failure is/was present and is a clinical diagnosis based on (please include this additional support in the medical record)
�After study respiratory failure has been ruled out
�Other
�Unable to determine
Use of terms such as suspected, likely, concern for, or probable (associated with a specific diagnosis that is being evaluated, monitored, or treated as if it exists) are acceptable and can be coded in the inpatient setting, when documented at the
time of discharge.
Thank you,
Rosa Klein RN
CDI Specialist
Please use your independent medical judgment in providing your response.
--- NOTE | 2025-02-01 13:07 | W.PN.PUL3 ---
Today's Communication / Plan
-
-Recommend total 7 days of antibiotics
-Asthma exacerbation improved, resume home inhalers including Symbicort, montelukast and can be discharged on tapering dose of prednisone over next 10 days
-Patient will follow-up with pulmonary clinic as outpatient in 1 week for further discussion regarding Biologics versus switching to higher potency inhaled steroids with Dulera
-Assess for home oxygen need
Assessment
-
#1. Left lower lobe pneumonia
-Agree with current treatment with ceftriaxone and doxycycline
-Legionella, strep antigen negative. Sputum cultures pending. Influenza and COVID-19 screen negative
-Will need 7 days of antibiotics
#2. Acute exacerbation of underlying moderate persistent asthma, T2-High variant with eosinophilia. Eosinophil count: 0-800 on different occasions. IgE 130 in 2018
-Patient has High T2 moderate persistent asthma with eosinophilia along with concomitant chronic bronchitis
-Continue DuoNebs scheduled 4 times daily, budesonide inhaler twice a day and steroids
-Continue antibiotics as ordered
-Continue montelukast 10 mg daily
-With his eosinophilia and recurrent exacerbations, patient is a candidate for biologic therapy, will discuss and pursue this as outpatient in the clinic, he has an appointment with Dr. Perkins in 1 week.
-Alternatively, can consider switching to higher potency inhaled steroids like Dulera. This can again be discussed and pursued as outpatient
#3. Lung nodules. 5-[address] in 2020
-This can be followed up as outpatient
Patient follows up with Dr. Perkins in pulmonary clinic and has an appointment in 1 week.
Total time spent on this consultation/encounter _35___ minutes which includes review of history, physical exam, medications, laboratory data, personal review of imaging, extensive review of outpatient records, discussion with care team and
respiratory therapy.
Data:
CXR 01/2025: Left basilar pneumonia
Spirometry on 03/25/2024 showing moderate COPD with post-BD FEV1: 66% / 2.12 L, and also mild restriction with post-BD FVC: 73% / 3.22 L.
PFT in February 2023 showed moderate COPD (post�BD FEV1: 77% / 2.54 L), with no evidence of restriction, and normal gas exchange capacity (DLco: 89%; DLco/VA: 95%)
ECHO 2012: Normal left ventricular size and systolic function. Left ventricular ejection
fraction is 60-65%. Normal regional wall motion. Mild concentric left
ventricular hypertrophy.
No prior study available for comparison.
CT CHEST 08/2021: 1. MODERATE to SEVERE CHRONIC BRONCHITIS in both lungs without definitive change from 04/13/2019.
2. Mild secretions in the trachea and both mainstem bronchi.
3. Mild amount of chronic peripheral endobronchial disease in the right middle lobe.
4. No CT evidence for bronchiectasis.
5. Moderate calcific atherosclerotic plaque in the coronary arteries
6. 5-6 mm lung nodules
Subjective Data
-
Date of Service:
Date of Service: February 01, 2025
Subjective:
Patient comfortably sitting in bed, in no acute distress. Wheezing much improved.
Review of Systems
Genitourinary: Other (All 14 systems reviewed and negative except as stated above in the history of present illness.)
Objective Data
Data Reviewed
Vital Signs / I&O / Oxygen:
Vital Signs
Temp Pulse Resp BP Pulse Ox
98.2 F 82 18 126/83 93
02/01/25 11:24 02/01/25 11:24 02/01/25 11:24 02/01/25 11:24 02/01/25 11:24
Intake and Output
01/31/25 02/01/25 02/02/25
06:59 06:59 06:59
Intake Total 480 / 480 240 / 240
Output Total 150 / 150
Balance 330 / 330 240 / 240
SaO2 93
Nasal Cannula flow liters per 2
minute
Physical Exam
General: Comfortable
HEENT: Normocephalic
Cardiovascular: S1-S2 and Regular Rhythm
Respiratory: Clear and Other (No wheezing this morning)
GI: Soft and Non Distended
Neurology: Awake and Alert
Labs/Micro/Reports
Lab Data
02/01/25 06:09
02/01/25 06:09
Microbiology
01/30/25 23:10 Sputum Respiratory Culture - Preliminary
Usual Respiratory Karli
01/30/25 23:10 Sputum Gram Stain - Preliminary
01/30/25 23:10 Urine Legionella Urinary Antigen - Final
Negative for Legionella pneumophila Serogroup 1 antigen.
A negative result does not rule out the possiblity of
Legionella infection due to other serogroups or species of
Legionella. Clinical correlation is recommended.
01/30/25 23:10 Urine Streptococcus pneumoniae Antigen (M - Final
Negative for Streptococcus pneumoniae antigen.
A negative result does not exclude infection with
Streptococcus pneumoniae. Clinical correlation is
recommended.
01/30/25 13:13 Nasal Swab Influenza Types A & B (SHANTAL) - Final
Negative for Influenza A & B, NAAT
Negative results must be combined with clinical observations
and patient history.
Nucleic Acid Amplification test (NAAT)performed on the
[employer] platform.
--- NOTE | 2025-02-01 14:49 | W.DCSUMMARY ---
Discharge Summary
Discharge Data
Date of Admission: 01/30/25
Date of Discharge: 02/01/25
-
Pending Results: No
Hospital Course
69-year-old male with past medical history of COPD/asthma, bronchiectasis, pulmonary hypertension, diabetes mellitus, hypothyroidism, anxiety came to the hospital with acute hypoxic respiratory insufficiency secondary to asthma/COPD overlap with
exacerbation. Patient was seen by pulmonary throughout hospitalization. Patient initially required oxygenation which over time continue to improve and he was able to be weaned off oxygen. Prior to discharge he ambulated with respiratory therapist
and did not require home oxygen. He was also put on IV steroids initially which was later transitioned to p.o. steroids with taper prior to discharge. He also had community-acquired pneumonia which was treated initially with IV antibiotics and
later transitioned to oral. For his mild hyperkalemia he was instructed to get BMP in 1 to 2 days with primary care provider. Once his symptoms continue to improve, he was then discharged home with instructions to follow-up with all his physicians
outpatient.
Discharge Plan
-
Patient Disposition: Home (Routine Discharge)
Discharge Diagnosis/Procedures: Acute hypoxemic respiratory insufficiency
Asthma/COPD overlap with exacerbation
Pulmonary hypertension
Left lower lobe pneumonia
Mild hyperkalemia
Diet: As tolerated
Activity: As tolerated
Driving Restrictions: As prior to admission
Bathing Restrictions: None
Blood Work: BMP in 1 to 2 days with primary care provider
Referrals:
Nhi Perkins MD [Active] - 02/08/25
Arlyn Sheriff PA-C [Family Provider] - in less than 1 week
Prescriptions:
New
guaifenesin 600 mg Tablet Extended Release 12hr
1,200 mg PO Q12 7 Days Qty: 28 0RF
benzonatate 100 mg Capsule
100 mg PO TIDPRN PRN (Reason: cough) Qty: 20 0RF
doxycycline hyclate 100 mg Capsule
100 mg PO BID Qty: 12 0RF
cefdinir 300 mg capsule
300 mg PO BID Qty: 12 0RF
prednisone 10 mg Tablet
See Rx Instructions .ROUTE .COMPLEX Qty: 30 0RF
Rx Instructions:
Take By Mouth:
40 mg daily x3 days, 30 mg daily x3 days,
20 mg daily x3 days, 10 mg daily x3 days.
Continued
paroxetine HCl 10 MG tablet
10 mg PO DAILY
multivitamin with folic acid [Tab-A-[place]] 1 TABLET tablet
1 tab PO DAILY
montelukast 10 MG tablet
10 mg PO DAILY
metformin 1,000 mg Tablet
1,000 mg PO BID
albuterol sulfate 90 mcg/actuation Hfa Aerosol Inhaler
1 puff INHALATION R Q4HPRN PRN (Reason: sob)
fluticasone propionate 50 mcg/actuation [place],Suspension
2 spray INTRANASAL DAILY
budesonide-formoterol [Symbicort] 160-4.5 mcg/actuation Hfa Aerosol Inhaler
2 puff INHALATION R BID
insulin glargine [Lantus Solostar U-100 Insulin] 100 unit/mL (3 mL) Insulin Pen
8 unit SC BID
Incruse Ellipta 62.5 mcg/actuation Blister With Device
1 inh INHALATION R DAILY
levothyroxine [Synthroid] 75 mcg Tablet
75 mcg PO DAILY
omega [id number] oil [Fish Oil] 1,200 (144-216) mg Capsule
2 cap PO DAILY
famotidine [Pepcid] 20 mg Tablet
20 mg PO BID
albuterol sulfate 0.63 mg/3 mL Solution For Nebulization
0.63 mg INHALATION R Q6HPRN PRN (Reason: sob)
dextromethorphan-guaifenesin 10-200 mg/5 mL Liquid
10 ml PO HSPRN PRN (Reason: cough)
budesonide 0.5 mg/2 mL Suspension For Nebulization
0.5 mg INHALATION R BID
loratadine 10 mg Tablet
10 mg PO DAILY
rosuvastatin 10 mg Tablet
10 mg PO HS
Discharge Orders:
Discharge Patient (As Directed); Ordered 02/01/25
Ordered By: Young Osborn
Discharge Date and Time
Discharge Date/Time: 02/01/25 15:38
Print Language: [id number]
[2025-02-01 15:08] VITALS: BP 151/93
== END 2025-02-01 15:38 | disposition home or self-care (01) | DRG 190 ==
LOC: 4 EAST ACU 18:03
PROVIDERS: Emergency Medicine; Internal Medicine; Registered Nurse; ADMITTING PHYSICIAN Internal Medicine; ATTENDING PHYSICIAN Internal Medicine; CONSULT PHYSICIAN Internal Medicine; EMERGENCY PHYSICIAN Emergency Medicine; FAMILY PHYSICIAN Student in an Organized Health Care Education/Training Program
DX: J44.1 Chronic obstructive pulmonary disease with (acute) exacerbation (principal); J18.9 Pneumonia, unspecified organism; J45.41 Moderate persistent asthma with (acute) exacerbation; J47.0 Bronchiectasis with acute lower respiratory infection; J44.0 Chronic obstructive pulmonary disease with (acute) lower respiratory infection; E11.9 Type 2 diabetes mellitus without complications; E03.9 Hypothyroidism, unspecified; E78.5 Hyperlipidemia, unspecified; E86.0 Dehydration; E87.5 Hyperkalemia; F41.9 Anxiety disorder, unspecified; I27.20 Pulmonary hypertension, unspecified; K21.9 Gastro-esophageal reflux disease without esophagitis; D72.10 Eosinophilia, unspecified; R09.02 Hypoxemia; R06.89 Other abnormalities of breathing; Z79.4 Long term (current) use of insulin; Z79.84 Long term (current) use of oral hypoglycemic drugs; Z79.890 Hormone replacement therapy; Z79.51 Long term (current) use of inhaled steroids; Z79.899 Other long term (current) drug therapy; Z11.52 Encounter for screening for COVID-19
CPT/HCPCS: 71046; 80048; 80053; 82962; 83036; 84484; 85025; 87070; 87205; 87449; 87502; 87811; 87899; 93005; 94640; 96374; 96375; 99285

== ENCOUNTER → 2025-02-13 09:21 | Outpatient (REF) | payer MEDICARE, OTHER, SELFPAY | LOC: RAD 09:21 | PROVIDERS: ATTENDING PHYSICIAN Internal Medicine Critical Care Medicine; FAMILY PHYSICIAN Student in an Organized Health Care Education/Training Program | DX: J47.9 Bronchiectasis, uncomplicated (principal) | CPT/HCPCS: 71250 ==

== ENCOUNTER → 2025-02-23 06:31 | Outpatient (REF) | payer MEDICARE, OTHER, SELFPAY ==
[2025-02-23 09:11] LABS: PT 13.5 Sec (11.4-14.6)
== END ==
LOC: SDSPAT 06:31
PROVIDERS: ATTENDING PHYSICIAN Internal Medicine Critical Care Medicine; FAMILY PHYSICIAN Family Medicine
DX: J47.9 Bronchiectasis, uncomplicated (principal)
CPT/HCPCS: 85610; 85730

== ENCOUNTER 2025-03-08 06:14 | Day surgery (SDC) | payer MEDICARE, OTHER, SELFPAY ==
[2025-02-23 13:37] VITALS: BMI 28.0
[2025-03-08] VITALS (9 sets, daily range): BP systolic 97–159; BP diastolic 68–124; BMI 28.0; BMI 27.8
[2025-03-08 07:10] LABS: Glucose - Point of Care 82 mg/dl (70-99)
[2025-03-08 08:43] LABS: Glucose - Point of Care 96 mg/dl (70-99)
[2025-03-08] MEDS: VENTOLIN NEBULES 2.5 MG INH (10:30)
[2025-03-08 14:47] LABS: Brochalveolar Lavage Color Pink; Brochalveolar Lavage Volume 15 ml
[2025-03-08 14:48] LABS: Brochalveolar Lavage Character Turbid (Clear)
[2025-03-08 14:57] LABS: BAL Lymphocytes 10 %; BAL Macrophages 38 %; BAL Neutrophils 52 %
== END 2025-03-08 11:00 | disposition home or self-care (01) ==
LOC: SDS 06:14
PROVIDERS: ATTENDING PHYSICIAN Internal Medicine Critical Care Medicine
DX: R91.8 Other nonspecific abnormal finding of lung field (principal); J98.11 Atelectasis
CPT/HCPCS: 31623; 31627; 31624; 31654; 88305; 71045; 76000; 82962; 87015; 87070; 87077; 87102; 87116; 87186; 87205; 88112; 89051; 94640; C1887

== ENCOUNTER → 2025-03-31 07:37 | Outpatient (REF) | payer MEDICARE, OTHER, SELFPAY | LOC: RAD 07:37 | PROVIDERS: ATTENDING PHYSICIAN Student in an Organized Health Care Education/Training Program; OTHER PHYSICIAN Podiatrist | DX: E11.9 Type 2 diabetes mellitus without complications (principal); S93.304A Unspecified dislocation of right foot, initial encounter; I70.90 Unspecified atherosclerosis | CPT/HCPCS: 93922; 93925 ==

== ENCOUNTER → 2025-07-16 14:07 | Outpatient (REF) | payer MEDICARE, OTHER, SELFPAY | LOC: HWRAD 14:07 | PROVIDERS: ATTENDING PHYSICIAN Student in an Organized Health Care Education/Training Program; REFERRING PHYSICIAN Podiatrist | DX: L81.9 Disorder of pigmentation, unspecified (principal); R60.0 Localized edema | CPT/HCPCS: 93970 ==